=== PATIENT | female | born 1940 | race Caucasian/White ===

== ENCOUNTER → 2016-11-04 | Outpatient (CLI) | payer MEDICARE, OTHER ==
[2016-11-04 18:20] LABS: BASO % 0.7 % (0.0-1.0); EOS # 0.1 K/mm3 (0.0-0.50); EOS % 1.7 % (0.0-3.0); LARGE UNSTAINED CELL # 0.1 K/mm3 (0.0-0.4); LARGE UNSTAINED CELL % 1.8 % (0.0-4.0); LYMPH # 1.6 K/mm3 (1.5-4.5); LYMPH % 23.5 % (24.0-44.0); MEAN CORPUSCULAR HEMOGLOBIN 29.7 pg (27.0-33.0); MEAN CORPUSCULAR HGB CONC 32.4 g/dl (32.0-36.5); MEAN CORPUSCULAR VOLUME 91.6 fl (80.0-96.0); MONO # 0.3 K/mm3 (0.0-0.8); NEUTROPHILS # 4.6 K/mm3 (1.8-7.7); NEUTROPHILS % 67.4 % (36.0-66.0); PLATELET COUNT, AUTOMATED 319 k/mm3 (150-450); RED CELL DISTRIBUTION WIDTH 13.2 % (11.5-14.5); WHITE BLOOD COUNT 6.8 K/mm3 (4.0-10.0)
[2016-11-04 18:58] LABS: ALBUMIN/GLOBULIN RATIO 1.14 (1.00-1.93); ALKALINE PHOSPHATASE 87 U/L (45-117); ALT/SGPT 19 U/L (12-78); ANION GAP 12 MEQ/L (8-16); AST/SGOT 13 U/L (15-37); BILIRUBIN,TOTAL 0.4 MG/DL (0.2-1.0); BLOOD UREA NITROGEN 14 MG/DL (7-18); CALCIUM LEVEL 9.3 MG/DL (8.8-10.2); CARBON DIOXIDE LEVEL 27 MEQ/L (21-32); CHLORIDE LEVEL 103 MEQ/L (98-107); CHOLESTEROL LEVEL 238 MG/DL (<200); CREATININE FOR GFR 0.74 MG/DL (0.55-1.02); GLOMERULAR FILTRATION RATE > 60.0 (>39); GLUCOSE, FASTING 96 MG/DL (83-110); POTASSIUM SERUM 4.5 MEQ/L (3.5-5.1); SODIUM LEVEL 142 MEQ/L (136-145); TOTAL PROTEIN 7.5 GM/DL (6.4-8.2); TRIGLYCERIDES LEVEL 159 MG/DL (<150)
== END ==
LOC: M WUC 10:37
PROVIDERS: ATTEND Family Medicine
DX: I10 Essential (primary) hypertension (principal)

== ENCOUNTER → 2017-10-10 | Outpatient (CLI) | payer MEDICARE ==
[2017-10-10 11:59] LABS: HEMATOCRIT 38.2 % (36.0-47.0); HEMOGLOBIN 12.5 g/dl (12.0-16.0); MEAN CORPUSCULAR HEMOGLOBIN 29.6 pg (27.0-33.0); MEAN CORPUSCULAR HGB CONC 32.7 g/dl (32.0-36.5); MEAN CORPUSCULAR VOLUME 90.3 fl (80.0-96.0); PLATELET COUNT, AUTOMATED 287 10^3/uL (150-450); RED BLOOD COUNT 4.23 10^6/uL (4.00-5.40); RED CELL DISTRIBUTION WIDTH 14.2 % (11.5-14.5); WHITE BLOOD COUNT 7.1 10^3/uL (4.0-10.0)
[2017-10-10 12:20] LABS: ESTIMATED AVERAGE GLUCOSE 131 MG/DL (60-110); HEMOGLOBIN A1c 6.2 %
[2017-10-10 12:34] LABS: ALBUMIN 4.4 GM/DL (3.2-5.2); ALBUMIN/GLOBULIN RATIO 1.42 (1.00-1.93); ALKALINE PHOSPHATASE 92 U/L (45-117); ALT/SGPT 23 U/L (12-78); ANION GAP 9 MEQ/L (8-16); AST/SGOT 19 U/L (7-37); BILIRUBIN,TOTAL 0.4 MG/DL (0.2-1.0); BLOOD UREA NITROGEN 14 MG/DL (7-18); CALCIUM LEVEL 8.8 MG/DL (8.8-10.2); CARBON DIOXIDE LEVEL 27 MEQ/L (21-32); CHLORIDE LEVEL 107 MEQ/L (98-107); CHOLESTEROL LEVEL 238 MG/DL (<200); CHOLESTEROL RISK RATIO 4.857 (<5); CREATININE FOR GFR 0.76 MG/DL (0.55-1.30); GLOMERULAR FILTRATION RATE > 60.0 (>39); GLUCOSE, FASTING 96 MG/DL (70-100); HDL CHOLESTEROL 49 MG/DL (>40); LDL CHOLESTEROL 154.2 MG/DL (<100); NON-HDL-C 189 MG/DL; SODIUM LEVEL 143 MEQ/L (136-145); TOTAL PROTEIN 7.5 GM/DL (6.4-8.2); TRIGLYCERIDES LEVEL 174 MG/DL (<150)
[2017-10-10 12:38] LABS: TOTAL 25(OH) VITAMIN D 15.8 NG/ML (30.0-100.0)
== END ==
LOC: M LAB 10:57
DX: Z12.31 Encounter for screening mammogram for malignant neoplasm of breast (principal); E03.9 Hypothyroidism, unspecified; R53.83 Other fatigue; Z78.0 Asymptomatic menopausal state; Z85.3 Personal history of malignant neoplasm of breast; Z92.0 Personal history of contraception
CPT/HCPCS: 71046

== ENCOUNTER → 2017-10-10 | Outpatient (CLI) | payer MEDICARE | LOC: M RAD 13:27 | DX: Z12.31 Encounter for screening mammogram for malignant neoplasm of breast (principal); Z78.0 Asymptomatic menopausal state; Z85.3 Personal history of malignant neoplasm of breast; Z92.0 Personal history of contraception ==

== ENCOUNTER → 2018-07-12 | Outpatient (REF) | payer MEDICARE | LOC: M LAB REF 17:30 | DX: R30.0 Dysuria (principal) | CPT/HCPCS: 87186 ==

== ENCOUNTER → 2019-01-02 | Outpatient (CLI) | payer MEDICARE ==
[2019-01-02 09:34] LABS: HEMATOCRIT 38.9 % (36.0-47.0); HEMOGLOBIN 12.4 g/dl (12.0-15.5); MEAN CORPUSCULAR HEMOGLOBIN 29.4 pg (27.0-33.0); MEAN CORPUSCULAR HGB CONC 31.9 g/dl (32.0-36.5); MEAN CORPUSCULAR VOLUME 92.2 fl (80.0-96.0); PLATELET COUNT, AUTOMATED 278 10^3/uL (150-450); RED BLOOD COUNT 4.22 10^6/uL (4.00-5.40); WHITE BLOOD COUNT 6.5 10^3/uL (4.0-10.0)
[2019-01-02 10:01] LABS: ALBUMIN 4.2 GM/DL (3.2-5.2); ALT/SGPT 22 U/L (12-78); BILIRUBIN,TOTAL 0.5 MG/DL (0.2-1.0); BLOOD UREA NITROGEN 19 MG/DL (7-18); CALCIUM LEVEL 9.2 MG/DL (8.8-10.2); CARBON DIOXIDE LEVEL 29 MEQ/L (21-32); CHLORIDE LEVEL 107 MEQ/L (98-107); CHOLESTEROL LEVEL 204 MG/DL (<200); CREATININE FOR GFR 0.82 MG/DL (0.55-1.30); FREE T4 0.86 NG/DL (0.76-1.46); GLOMERULAR FILTRATION RATE > 60.0 (>39); GLUCOSE, FASTING 102 MG/DL (70-100); HDL CHOLESTEROL 48 MG/DL (>40); LDL CHOLESTEROL 130 MG/DL (<100); NON-HDL-C 156 MG/DL; POTASSIUM SERUM 4.3 MEQ/L (3.5-5.1); SODIUM LEVEL 141 MEQ/L (136-145); THYROID STIMULATING HORMONE 0.949 uIU/ML (0.358-3.740); TOTAL PROTEIN 7.4 GM/DL (6.4-8.2); TRIGLYCERIDES LEVEL 132 MG/DL (<150)
[2019-01-02 10:08] LABS: TOTAL 25(OH) VITAMIN D 94.8 NG/ML (30.0-100.0)
[2019-01-02 10:09] LABS: TOTAL T3 67.6 NG/DL (60.0-181.0)
[2019-01-02 10:47] LABS: HEMOGLOBIN A1c 6.2 %
== END ==
LOC: M LAB 08:53
PROVIDERS: ATTEND Family Medicine
DX: E03.9 Hypothyroidism, unspecified (principal); E11.9 Type 2 diabetes mellitus without complications

== ENCOUNTER → 2019-10-14 | Outpatient (CLI) | payer MEDICARE ==
[2019-10-14 09:43] LABS: HEMATOCRIT 37.7 % (36.0-47.0); MEAN CORPUSCULAR HEMOGLOBIN 29.3 pg (27.0-33.0); MEAN CORPUSCULAR HGB CONC 31.8 g/dl (32.0-36.5); MEAN CORPUSCULAR VOLUME 92.2 fl (80.0-96.0); PLATELET COUNT, AUTOMATED 274 10^3/uL (150-450); RED BLOOD COUNT 4.09 10^6/uL (4.00-5.40); WHITE BLOOD COUNT 6.7 10^3/uL (4.0-10.0)
[2019-10-14 10:03] LABS: HEMOGLOBIN A1c 5.9 %
[2019-10-14 10:13] LABS: ALBUMIN 4.2 GM/DL (3.2-5.2); ALT/SGPT 17 U/L (12-78); BILIRUBIN,TOTAL 0.4 MG/DL (0.2-1.0); BLOOD UREA NITROGEN 17 MG/DL (7-18); CALCIUM LEVEL 8.8 MG/DL (8.8-10.2); CARBON DIOXIDE LEVEL 30 MEQ/L (21-32); CHLORIDE LEVEL 107 MEQ/L (98-107); CHOLESTEROL LEVEL 230 MG/DL (<200); CHOLESTEROL RISK RATIO 5.111 (<5); CREATININE FOR GFR 0.77 MG/DL (0.55-1.30); GLOMERULAR FILTRATION RATE > 60.0 (>39); GLUCOSE, FASTING 103 MG/DL (70-100); HDL CHOLESTEROL 45 MG/DL (>40); LDL CHOLESTEROL 146 MG/DL (<100); NON-HDL-C 185 MG/DL; POTASSIUM SERUM 3.8 MEQ/L (3.5-5.1); SODIUM LEVEL 141 MEQ/L (136-145); TOTAL 25(OH) VITAMIN D 77.9 NG/ML (30.0-100.0); TOTAL PROTEIN 7.1 GM/DL (6.4-8.2); TRIGLYCERIDES LEVEL 193 MG/DL (<150)
== END ==
LOC: M LAB 09:05
PROVIDERS: ATTEND Family Medicine
DX: R53.83 Other fatigue (principal); E03.9 Hypothyroidism, unspecified

== ENCOUNTER → 2020-06-22 | Outpatient (CLI) | payer MEDICARE ==
[~2020-06-22] MED LIST: HYDR12.55 PO; LISI10TA4 PO; SERT-138; SERT50TA29; SIMV20TA22
[2020-06-22 14:46] LABS: HEMATOCRIT 34.3 % (36.0-47.0); HEMOGLOBIN 10.7 g/dl (12.0-15.5); MEAN CORPUSCULAR HGB CONC 31.2 g/dl (32.0-36.5); PLATELET COUNT, AUTOMATED 299 10^3/uL (150-450); RED BLOOD COUNT 3.69 10^6/uL (4.00-5.40); WHITE BLOOD COUNT 10.5 10^3/uL (4.0-10.0)
[2020-06-22 15:14] LABS: ALT/SGPT 28 U/L (12-78); BILIRUBIN,TOTAL 0.5 MG/DL (0.2-1.0); BLOOD UREA NITROGEN 17 MG/DL (7-18); CALCIUM LEVEL 9.4 MG/DL (8.8-10.2); CARBON DIOXIDE LEVEL 29 MEQ/L (21-32); CHLORIDE LEVEL 106 MEQ/L (98-107); CHOLESTEROL LEVEL 157 MG/DL (<200); CREATININE FOR GFR 0.84 MG/DL (0.55-1.30); GLOMERULAR FILTRATION RATE > 60.0 (>32); GLUCOSE, FASTING 107 MG/DL (70-100); HDL CHOLESTEROL 50 MG/DL (>40); LDL CHOLESTEROL 83 MG/DL (<100); NON-HDL-C 107 MG/DL; SODIUM LEVEL 142 MEQ/L (136-145); TRIGLYCERIDES LEVEL 120 MG/DL (<150)
[2020-06-22 15:15] LABS: HEMOGLOBIN A1c 5.9 %
--- NOTE | 2020-06-23 04:52 | REP ---
INDICATION: HTN, HYPOTHYROID COMPARISON: 10/10/2017 TECHNIQUE: PA and lateral. FINDINGS: Examination demonstrates small to moderate pleural effusions with perihilar and basilar airspace disease. Clinical correlation is required. Differential diagnosis includes both pulmonary edema and multifocal pneumonia. IMPRESSION: Small to moderate pleural effusions and perihilar/lower lobe opacities. Differential diagnosis includes but is not limited to pulmonary edema and multifocal pneumonia. <Electronically signed by Javid Matthews > 06/23/20 0449
--- NOTE | 2020-06-24 09:09 | ECGEPIP ---
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 Electronically Signed on 06-24-2020 9:08:41 EDT by Rick Ramirez
== END ==
LOC: M LAB 13:50
PROVIDERS: ATTEND Family Medicine
DX: I10 Essential (primary) hypertension (principal); Z79.899 Other long term (current) drug therapy

== ENCOUNTER 2020-06-25 14:35 | Emergency (ER) | payer MEDICARE ==
[~2020-06-25] VITALS: Ht 160 cm; Wt 72.7 kg
[2020-06-25] MEDS ORDERED: ALBUTEROL 90 MCG/ACT 8GM HFA INHALER INH ONE (15:15)
[2020-06-25 15:33] LABS: VENOUS BASE EXCESS 3.2 (-2.0-2.0); VENOUS HCO3 28.3 MEQ/L (23.0-27.0); VENOUS PARTIAL PRESSURE CO2 45.5 mmHg (38.0-50.0); VENOUS PARTIAL PRESSURE O2 43.7 mmHg (30.0-50.0); VENOUS PH 7.412 UNITS (7.330-7.430); VENOUS STANDARD HCO3 26.9 MEQ/L; VENOUS TOTAL CO2 29.7 MEQ/L (24.0-28.0)
[2020-06-25 15:37] LABS: BASO # 0.1 10^3/uL (0.0-0.2); BASO % 0.8 % (0.0-1.0); EOS # 0.1 10^3/uL (0.0-0.5); EOS % 0.9 % (0.0-3.0); HEMATOCRIT 35.2 % (36.0-47.0); HEMOGLOBIN 11.2 g/dl (12.0-15.5); LYMPH # 2.3 10^3/uL (1.5-5.0); MEAN CORPUSCULAR HEMOGLOBIN 29.9 pg (27.0-33.0); MEAN CORPUSCULAR HGB CONC 31.8 g/dl (32.0-36.5); MEAN CORPUSCULAR VOLUME 93.9 fl (80.0-96.0); MONO # 0.6 10^3/uL (0.0-0.8); MONO % 6.1 % (0.0-5.0); NEUTROPHILS # 5.9 10^3/uL (1.5-8.5); PLATELET COUNT, AUTOMATED 311 10^3/uL (150-450); RED BLOOD COUNT 3.75 10^6/uL (4.00-5.40)
[2020-06-25] MEDS ORDERED: SERT-138 (15:44)
[2020-06-25] MEDS ORDERED: SERT50TA29 (15:44)
[2020-06-25] MEDS ORDERED: SIMV20TA22 (15:44)
[2020-06-25 16:05] LABS: ALBUMIN 3.6 GM/DL (3.2-5.2); ALT/SGPT 36 U/L (12-78); BILIRUBIN,DIRECT < 0.1 MG/DL (0.0-0.2); BILIRUBIN,TOTAL 0.5 MG/DL (0.2-1.0); BLOOD UREA NITROGEN 13 MG/DL (7-18); CALCIUM LEVEL 8.5 MG/DL (8.8-10.2); CARBON DIOXIDE LEVEL 30 MEQ/L (21-32); CHLORIDE LEVEL 106 MEQ/L (98-107); CK-MB VALUE MASS 3.1 NG/ML (<3.6); CPK CREATINE PHOSPHOKINASE 123 U/L (26-192); CREATININE FOR GFR 0.75 MG/DL (0.55-1.30); GLOMERULAR FILTRATION RATE > 60.0 (>32); GLUCOSE, FASTING 131 MG/DL (70-100); MB/CK RELATIVE INDEX 2.52 (< OR =4); NT-PRO BNP 5788 PG/ML (<450); POTASSIUM SERUM 3.6 MEQ/L (3.5-5.1); SODIUM LEVEL 142 MEQ/L (136-145); TOTAL PROTEIN 6.9 GM/DL (6.4-8.2); TROPONIN I 0.02 NG/ML (< 0.10)
[2020-06-25] MEDS ORDERED: FUROSEMIDE 20MG/2ML VIAL (J1940) IV ONE (16:30)
--- NOTE | 2020-06-25 17:01 | REP ---
INDICATION: DYSPNEA/COUGH. COMPARISON: Comparison chest x-ray June 22, 2020.. TECHNIQUE: Upright AP portable view. FINDINGS: Monitoring electrodes are seen. There are surgical clips in the right axillary soft tissues. Mild cardiomegaly is observed. There is blunting of the pleural angles bilaterally indicating small bilateral pleural effusions. Pulmonary vascular and interstitial congestion is seen. Mild interstitial edema suspected. No acute infiltrate. Platelike atelectasis versus linear fibrosis is seen in the left and right base. IMPRESSION: CHF pattern with small bilateral effusions and vascular congestion with mild interstitial edema pattern. Platelike atelectasis in the bases. <Electronically signed by Nelson Ansari > 06/25/20 [id number]
[2020-06-25] MEDS ORDERED: HYDR12.55 PO (17:09)
[2020-06-25 17:37] VITALS: BP 165/85
[2020-06-25] MEDS ORDERED: COMBIVENT RESPIMAT 100-20MCG INHALER 4GM INH SCH (21:00)
--- NOTE | 2020-06-25 22:07 | ECGEPIP ---
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
== END 2020-06-25 17:39 | disposition home or self-care (01) ==
LOC: M ED 14:35
DX: I50.9 Heart failure, unspecified (principal); R06.02 Shortness of breath; E78.5 Hyperlipidemia, unspecified; Z79.899 Other long term (current) drug therapy
CPT/HCPCS: 71045; 80048; 80076; 82550; 82553; 82803; 83605; 83880; 84484; 85025; 87040; 87486; 87581; 87633; 87798; 93005; 93041; 96374; 99285; J1940

== ENCOUNTER 2020-06-29 14:09 | Emergency (ER) | payer MEDICARE ==
[~2020-06-29] VITALS: Ht 160 cm; Wt 72.0 kg
[2020-06-29 14:09] VITALS: BP 154/73
[~2020-06-29 14:09] MED LIST changes: -LISI10TA4 PO
[2020-06-29] MEDS ORDERED: LISI10TA4 PO (14:22)
== END 2020-06-29 14:57 | disposition home or self-care (01) ==
LOC: M ED 14:09
DX: S09.90XA Unspecified injury of head, initial encounter (principal); X58.XXXA Exposure to other specified factors, initial encounter; Y92.018 Other place in single-family (private) house as the place of occurrence of the external cause; I10 Essential (primary) hypertension; E78.5 Hyperlipidemia, unspecified; F33.9 Major depressive disorder, recurrent, unspecified; Z79.899 Other long term (current) drug therapy

== ENCOUNTER → 2020-08-12 | Outpatient (CLI) | payer MEDICARE ==
[~2020-08-12] MED LIST changes: +LISI10TA4 PO
[2020-08-12 13:02] LABS: HEMATOCRIT 39.2 % (36.0-47.0); HEMOGLOBIN 12.7 g/dl (12.0-15.5); MEAN CORPUSCULAR HEMOGLOBIN 29.1 pg (27.0-33.0); MEAN CORPUSCULAR HGB CONC 32.4 g/dl (32.0-36.5); MEAN CORPUSCULAR VOLUME 89.9 fl (80.0-96.0); PLATELET COUNT, AUTOMATED 256 10^3/uL (150-450); RED BLOOD COUNT 4.36 10^6/uL (4.00-5.40); WHITE BLOOD COUNT 6.7 10^3/uL (4.0-10.0)
[2020-08-12 13:41] LABS: HEMOGLOBIN A1c 6.4 %
[2020-08-12 16:52] LABS: ALBUMIN 4.1 GM/DL (3.2-5.2); BILIRUBIN,TOTAL 0.6 MG/DL (0.2-1.0); CHOLESTEROL RISK RATIO 5.727 (<5); CREATININE FOR GFR 2.16 MG/DL (0.55-1.30); GLOMERULAR FILTRATION RATE 23.4 (>32); POTASSIUM SERUM 6.2 MEQ/L (3.5-5.1); THYROID STIMULATING HORMONE 1.37 uIU/ML (0.358-3.740); TOTAL PROTEIN 7.8 GM/DL (6.4-8.2)
== END ==
LOC: M LAB 11:31
PROVIDERS: ATTEND Family Medicine
DX: E03.9 Hypothyroidism, unspecified (principal); D64.9 Anemia, unspecified; Z79.899 Other long term (current) drug therapy

== ENCOUNTER 2020-08-22 21:11 | Inpatient (IN) | payer MEDICARE ==
[~2020-08-22] VITALS: Ht 154.9 cm; Wt 68.1 kg
[2020-08-22] MEDS ORDERED: NS 1,000 ML IV ONE (22:00)
[2020-08-22 22:47] LABS: BASO # 0.1 10^3/uL (0.0-0.2); BASO % 0.7 % (0.0-1.0); EOS # 0.4 10^3/uL (0.0-0.5); EOS % 3.7 % (0.0-3.0); HEMATOCRIT 37.2 % (36.0-47.0); HEMOGLOBIN 11.5 g/dl (12.0-15.5); LYMPH # 2.3 10^3/uL (1.5-5.0); LYMPH % 23.6 % (24.0-44.0); MEAN CORPUSCULAR HEMOGLOBIN 28.1 pg (27.0-33.0); MEAN CORPUSCULAR HGB CONC 30.9 g/dl (32.0-36.5); MONO # 0.8 10^3/uL (0.0-0.8); MONO % 8.6 % (0.0-5.0); NEUTROPHILS # 6.1 10^3/uL (1.5-8.5); NEUTROPHILS % 63.1 % (36.0-66.0); PLATELET COUNT, AUTOMATED 289 10^3/uL (150-450); RED BLOOD COUNT 4.09 10^6/uL (4.00-5.40); WHITE BLOOD COUNT 9.7 10^3/uL (4.0-10.0)
[2020-08-22 23:17] LABS: ALBUMIN 3.9 GM/DL (3.2-5.2); ALT/SGPT 12 U/L (12-78); BILIRUBIN,DIRECT 0.1 MG/DL (0.0-0.2); BILIRUBIN,TOTAL 0.7 MG/DL (0.2-1.0); BLOOD UREA NITROGEN 86 MG/DL (7-18); CARBON DIOXIDE LEVEL 21 MEQ/L (21-32); CHLORIDE LEVEL 103 MEQ/L (98-107); CK-MB VALUE MASS 1.3 NG/ML (<3.6); CPK CREATINE PHOSPHOKINASE 48 U/L (26-192); CREATININE FOR GFR 2.66 MG/DL (0.55-1.30); GLOMERULAR FILTRATION RATE 18.4 (>32); GLUCOSE, FASTING 105 MG/DL (70-100); LIPASE 410 U/L (73-393); MB/CK RELATIVE INDEX 2.71 (< OR =4); POTASSIUM SERUM 4.5 MEQ/L (3.5-5.1); SODIUM LEVEL 135 MEQ/L (136-145); TOTAL PROTEIN 7.5 GM/DL (6.4-8.2); TROPONIN I < 0.02 NG/ML (< 0.10)
[2020-08-22 23:22] LABS: RSV AMPLIFICATION NEGATIVE (NEGATIVE)
[2020-08-23] MEDS ORDERED: SERT-138 PO (01:09)
[2020-08-23] MEDS ORDERED: LISI10TA4 PO (01:09)
[2020-08-23] MEDS ORDERED: FURO40TA2 PO (01:09)
[2020-08-23] MEDS ORDERED: ALEV220T22 PO (01:09)
[2020-08-23] MEDS ORDERED: SIMV20TA22 PO (01:09)
[2020-08-23] MEDS ORDERED: OMEP1CAP73 PO (01:09)
[2020-08-23] MEDS ORDERED: VITA50005 PO (01:09)
[2020-08-23] MEDS ORDERED: MOM 30ML SUSPENSION UDC PO PRN (01:45)
[2020-08-23] MEDS ORDERED: ACETAMINOPHEN TAB 650MG DOSE (2X325MG) PO PRN (01:45)
[2020-08-23] MEDS ORDERED: MAALOX 30 ML SUSP *UDC PO PRN (01:45)
[2020-08-23] MEDS ORDERED: NS 1,000 ML IV SCH (01:45)
--- NOTE | 2020-08-23 03:24 | HPEPDOC ---
General Date of Admission Aug 23, 2020 at 00:25 Date of Service: Aug 23, 2020 Attending Physician: ARNULFO NEWBY MD Chief Complaint The patient is a 79-year-old female admitted with a reason for visit of [place], Dehydration, Hypotension. Source: Patient Exam Limitations: Hard of hearing History of Present Illness Presenting compliant: History of present illness: Mrs. Anderson is an 79-year-old female Patient was recently diagnosed with CHF and was started on Lasix back in May as per patient presented to the emergency department as she was feeling difficult to breathe, her balance was off and feeling tired. She reports going to shopping today morning on the back home driving she was having difficulty to breathe, and later was having wobbling gait per patient, she felt okay when sitting and laying. She is also having back pain, dull in character, in the thoracic region, and took some naproxen in the afternoon. She denies having any chest pain, headache, nausea, vomiting, sweating, mechanical fall. She reports she was told she has CHF and was started on Lasix, she did report having dizziness on 08/12/2020 and went to her PCP Dr. Em who did order the blood work, which showed increasing creatinine from 0.8 to 2.1, and potassium was elevated and she was asked to stop taking the oral potassium and asked to follow-up in the office on 08/15/2020. But when patient went PCP office was closed due to covid-19. Since then she was having progressive weakness and dizziness with standing. Past medical history: Anxiety/depression CHF Past surgical history: Hysterectomy Lumpectomy for breast cancer status post chemotherapy and radiation in 1995 Social history: Denies smoking, denies alcohol use, denies illicit drug use/recreational. Family History: Mother has depression, from heart condition. Father has diabetes. Son from glioblastoma in 2017 at age 53 years. Brother has history of depression REVIEW OF SYSTEMS: Constitutional: Denies having fever, chills, night sweats, headaches, reports having 25 pound weight loss since May. Eyes: Denies any blurry vision or double vision.. Cardiovascular: Denies any chest pain or palpitations. Respiratory: Denies shortness of breath and cough. Gastrointestinal (GI): Denies any nausea or vomiting. Genitourinary: Denies dysuria, hematuria. Musculoskeletal: Denies any muscle aches and pains. Skin: Denies any rashes or ulcers. Hematology/Oncology: Denies any easy bleeding or bruising. Endocrine: Denies cold intolerance, heat intolerance. All other review of systems is negative. PHYSICAL EXAMINATION: Vital Signs: As below General: Patient is awake, alert, oriented times three, laying in bed , no apparent distress. Eyes: Conjunctiva clear, pupils equal round and reactive to light and accommodation. EOM full, Fundus: not visualized. ENT: Patient has difficulty in hearing, uses hearing aid but don't have it with her. No nasal deviation, oropharynx clear with no lesions/erythema. Neck: supple, no masses, trachea midline, no thyroid nodules, masses, tenderness or enlargement. Cardiovascular: S1, S2, normal rhythm, no murmur, rub, or gallop. Respiratory: Chest is clear to auscultation bilaterally, No rhonchi, wheezes or rubs. Abdomen: Soft, bowel sounds positive, no bruits. Nontender on palpation. Extremities: No clubbing or cyanosis. No edema, no tenderness. 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 Skin: No rashes, noted seborrheic dermatitis, stick-on lesions on her back and chest. Assessment: 79 years old female with a recent history of CHF per patient, (no echo on record ) came in ER with dizziness and weakness going on since 10 days. She had blood work done by PCP and was told to stop potassium, and asked to come back on 15 August for reevaluation. Patient did go to PCP office but was closed due to Covid. Today she reports having difficulty in breathing and dizziness on standing , feeling tired. In the ED her blood pressure was in 90's systolic, BUN and creatinine in ED were 86 and 2.66. Hospitalist team was called for further management of this patient. Plan: Acute kidney injury: - BUN 86, creatinine 2.66 her creatinine done at PCP was 2.1 which has gone up from 0.8 - Most likely patient has prerenal azotemia given her dehydration, NSAID and GOVIND inhibitors. - Patient was hypotensive on presentation and was given 1 L of fluid in the ED. - Will get renal ultrasound to rule out any chronic kidney injury. - We will get urine analysis, urine sodium, urine urea to calculate FENA. - Will hold off for furosemide, this no peripheral and simvastatin for now. - Will start her on 100 mils per hour normal saline. - Based on her urine analysis will consider further testing if there is intrin sic renal disease. Congestive heart failure: - Patient was told she has CHF and was started on Lasix, no echo on file as of now. We will opt in prior records to get more information of what type of heart failure she is having. - Has an appointment scheduled with cardiology on 09/02/2020(per patient) Anemia: - Patient has an hemoglobin of 11.5. - Patient never had a colonoscopy. But she wants to have one now, she is scheduled to see Dr. Amanda on 08/29/2020(per patient) - She does not report having dark stools or blood in stools. Anxiety/depression: - Will continue sertraline. DVT prophylaxis: - Teds and sequentials. Disposition: Will monitor her BUN and creatinine, and we will hold off nephrotoxic medication, try to obtain prior reports to see what type of CHF. Further decision will be made based on her kidney function. Home Medications Scheduled Ergocalciferol (Vitamin D2) (Vitamin D2) 50,000 Units Cap, 50,000 UNITS PO QWEEK, (Reported) SATURDAY Furosemide (Furosemide) 40 Mg Tablet, 40 MG PO BID, (Reported) Lisinopril (Lisinopril) 10 Mg Tablet, 10 MG PO DAILY, (Reported) Omeprazole (Omeprazole) 20 Mg Capsule.dr, 20 MG PO DAILY, (Reported) Sertraline HCl (Sertraline HCl) 100 Mg Tablet, 100 MG PO DAILY, (Reported) Simvastatin (Simvastatin) 20 Mg Tablet, 20 MG PO DAILY, (Reported) Scheduled PRN Naproxen Sodium (Aleve) 220 Mg Tablet, 220 MG PO BID PRN for PAIN, (Reported) Allergies Coded Allergies: No Known Allergies (Unverified , 02/28/16) A-FIB/CHADSVASC A-FIB History Current/History of A-Fib/PAF?: No Vital Signs Vital Signs Date Time Temp Pulse Resp B/P (MAP) Pulse Ox O2 Delivery O2 Flow Rate FiO2 08/22/20 23:46 67 20 107/51 (69) 100 Room Air 08/22/20 21:34 97.2 Laboratory Data Labs 24H Laboratory Tests 2 08/22/20 22:38: Immature Granulocyte % (Auto) 0.3, Neutrophils (%) (Auto) 63.1, Lymphocytes (%) (Auto) 23.6L, Monocytes (%) (Auto) 8.6H, Eosinophils (%) (Auto) 3.7H, Basophils (%) (Auto) 0.7, Neutrophils # (Auto) 6.1, Lymphocytes # (Auto) 2.3, Monocytes # (Auto) 0.8, Eosinophils # (Auto) 0.4, Basophils # (Auto) 0.1, Nucleated Red Blood Cells % (auto) 0.0, Anion Gap 11, Glomerular Filtration Rate 18.4L, Lactic Acid Level 1.0, Calcium Level 9.0, Total Bilirubin 0.7, Direct Bilirubin 0.1, A spartate Amino Transf (AST/SGOT) 9, Alanine Aminotransferase (ALT/SGPT) 12, Alkaline Phosphatase 53, Total Creatine Kinase 48, Creatine Kinase MB 1.3, Creatine Kinase MB Relative Index 2.71, Troponin I < 0.02, Total Protein 7.5, Albumin 3.9, Albumin/Globulin Ratio 1.1L, Lipase 410H, Coronavirus (COVID- 19)(PCR) NEGATIVE, Influenza Type A (RT-PCR) NEGATIVE, Influenza Type B (RT-PCR) NEGATIVE, Respiratory Syncytial Virus (PCR) NEGATIVE CBC/BMP Laboratory Tests 08/22/20 22:38 Plan / VTE VTE Prophylaxis Ordered?: Yes GME ATTESTATION GME ATTESTATION My faculty preceptor for this patient encounter was physically present during the encounter and was fully available. All aspects of the patient interview, examination, medical decision making process, and medical care plan development were reviewed and approved by the faculty preceptor. The faculty preceptor is aware and concurs with the plan as stated in the body of this note and will attest to such by his/her cosignature. ATTENDING NOTE TIME 205AM is a 79 yr old with a hx of unspecified CHF & depression who presented w c/o dizziness, and was found to have JORDAN and hypotension #JORDAN #Dehydration/ Hypotension #Unspecified type of CHF Plan: check orthostats/ f/u CK, U[place]tes for FEUrea, renal US, IVF, f/u records from PCP to determine type of CHF Rest per Dr. Watt's H&P Ayla Watt MD Aug 23, 2020 02:39 ARNULFO NEWBY MD Aug 23, 2020 03:24
--- NOTE | 2020-08-23 07:12 | ECGEPIP ---
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
[2020-08-23 08:00] VITALS: BP_SYST 137; BP_SYST 139; BP_SYST 156; BP_DIAS 63; BP_DIAS 67
[2020-08-23 08:06] LABS: BASO # 0.1 10^3/uL (0.0-0.2); BASO % 0.9 % (0.0-1.0); EOS # 0.5 10^3/uL (0.0-0.5); EOS % 6.1 % (0.0-3.0); HEMATOCRIT 35.7 % (36.0-47.0); LYMPH % 25.5 % (24.0-44.0); MEAN CORPUSCULAR HEMOGLOBIN 28.1 pg (27.0-33.0); MEAN CORPUSCULAR HGB CONC 30.8 g/dl (32.0-36.5); MEAN CORPUSCULAR VOLUME 91.1 fl (80.0-96.0); MONO # 0.7 10^3/uL (0.0-0.8); MONO % 8.7 % (0.0-5.0); NEUTROPHILS # 4.5 10^3/uL (1.5-8.5); NEUTROPHILS % 58.5 % (36.0-66.0); PLATELET COUNT, AUTOMATED 255 10^3/uL (150-450); RED BLOOD COUNT 3.92 10^6/uL (4.00-5.40); WHITE BLOOD COUNT 7.7 10^3/uL (4.0-10.0)
--- NOTE | 2020-08-23 08:10 | REP ---
INDICATION: CRISTIANA COMPARISON: None TECHNIQUE: Real time salcedo scale ultrasound examination using curved array transducer. FINDINGS: Bilateral kidneys are normal in contour, size, echogenicity, and reniform shape. No hydronephrosis, nephrolithiasis, cystic or renal mass lesion. No perinephric fluid collection. Right kidney measures 10.1 x 4.9 x 3.9 cm. Left kidney measures 9.2 x 3.9 x 5.1 cm. Bladder is unremarkable. IMPRESSION: Normal renal ultrasound. No hydronephrosis. <Electronically signed by Javid Matthews > 08/23/20 [id number]
[2020-08-23 08:29] LABS: ALBUMIN 3.5 GM/DL (3.2-5.2); BILIRUBIN,TOTAL 0.5 MG/DL (0.2-1.0); CALCIUM LEVEL 8.7 MG/DL (8.8-10.2); CREATININE FOR GFR 2.22 MG/DL (0.55-1.30); GLOMERULAR FILTRATION RATE 22.6 (>32); POTASSIUM SERUM 4.7 MEQ/L (3.5-5.1); TOTAL PROTEIN 6.8 GM/DL (6.4-8.2)
[2020-08-23] MEDS: DOCUSATE SODIUM 100MG CAPSULE PO SCH ×2 (09:00→19:49)
[2020-08-23 09:55] LABS: APPEARANCE, URINE HAZY (CLEAR); BACTERIA, URINE AUTO 2+ (NEGATIVE); BILIRUBIN, URINE AUTO NEGATIVE (NEGATIVE); BLOOD, URINE BLOOD NEGATIVE (NEGATIVE); COLOR, URINE YELLOW (YELLOW); GLUCOSE, URINE (UA) AUTO NEGATIVE (NEGATIVE); KETONE, URINE AUTO NEGATIVE (NEGATIVE); LEUKOCYTE ESTERASE, URINE AUTO 3+ (NEGATIVE); NITRITE, URINE AUTO NEGATIVE (NEGATIVE); PROTEIN, URINE AUTO NEGATIVE (NEGATIVE); RBC, URINE AUTO 3 /HPF (0-3); SPECIFIC GRAVITY URINE AUTO 1.011 (1.002-1.035); SQUAMOUS EPITHELIAL CELL UR AU 2 /HPF (0-6); UROBILINOGEN, URINE AUTO 0.2 mg/dL (0.0-2.0); WBC, URINE AUTO 29 /HPF (0-3)
[2020-08-23] MEDS: SERTRALINE 100 MG TAB PO SCH (09:57)
[2020-08-23] MEDS: OMEPRAZOLE 20 MG CAP PO SCH (09:57)
[2020-08-23 10:15] LABS: SODIUM,RANDOM URINE 61 MEQ/L; UREA NITROGEN RANDOM URINE 594 MG/DL
--- NOTE | 2020-08-23 10:47 | REP ---
INDICATION: Evaluate for fluid overload COMPARISON: 06/25/2020 TECHNIQUE: Portable AP view of the chest FINDINGS: The mediastinum and cardiac silhouette are stable and within normal limits for portable technique. Lung navarro demonstrate diffuse chronic appearing interstitial changes. Subtle airspace disease along the periphery of the right lower lobe cannot be excluded. Previously noted lower lobe infiltrates and pleural effusions have resolved. No effusion. No pneumothorax. Skeletal structures stable. IMPRESSION: 1. Chronic appearing changes. No definite evidence for pulmonary edema/fluid overload. 2. Subtle chronic versus acute airspace disease along the periphery of the right lower lung zone. <Electronically signed by Javid Matthews > 08/23/20 1044
[2020-08-23 12:19] VITALS: BP 145/69
[2020-08-23] MEDS: NS 1,000 ML IV SCH (12:44)
[2020-08-23 14:23] VITALS: BP 121/68
--- NOTE | 2020-08-23 16:23 | IPNPDOC ---
Text Note Date of Service The patient was seen on 08/23/20. NOTE Subjective: Patient is an 79-year-old female with a PMHx of Anxiety/depression and a recent diagnosis of CHF who presented to the emergency room with complaints of lightheadedness and dizziness. Patient reported that she was started on Lasix back in May after she had reported difficulty breathing and was found to have fluid overload. She reported lightheadedness and dizziness and went to her primary care provider for further evaluation. On 08/22, however, the office was closed and patient came to the ER for further evaluation. Upon arrival to the ER, patient was found to have orthostatic hypotension and acute kidney injury. She was admitted to the hospital service for further evaluation and treatment. Patient was seen and examined at the bedside. Currently patient denies any chest pain, shortness breath, palpitations, nausea, vomiting, abdominal pain, diarrhea or constipation. Denies any urinary discomfort. Objective: Vitals (See below) General: Lying in bed, no acute distress, comfortable, AAOx3 HEENT: NC, AT CVS: +S1S2 Lungs: Fair air entry b/l, -w/r/r Abdomen: Soft, ND, NT Extremities: - Edema, - Calf tenderness Assessment and plan: Acute kidney injury - likely 2/2 overdiuresis - Cr baseline of 0.8; Cr on admission of 2.66 - improving - Renal US 08/23: Normal renal ultrasound. No hydronephrosis. - Awaiting UA / Urine electrolytes - c/w gentle IV fluid hydration Congestive heart failure - No evidence of exacerbation - No echocardiogram on file - CXR 08/23: 1. Chronic appearing changes. No definite evidence for pulmonary edema/fluid overload. 2. Subtle chronic versus acute airspace disease along the periphery of the right lower lung zone. - Will hold diuretic therapy - Has an appointment scheduled with cardiology on 09/02/[address] Daniel Anemia - Hg appears to be at baseline - She is scheduled to see Dr. Amanda on 08/29/2020(per patient) for screening colonoscopy Anxiety/depression - c/w sertraline DVT prophylaxis - c/w TEDs/Sequentials Disposition: - c/w gentle IV fluid hydration - Anticipate DC within 24-48 hours VS,Fishbone, I+O VS, Fishbone, I+O Laboratory Tests 08/22/20 22:38 08/23/20 07:47 Vital Signs Date Time Temp Pulse Resp B/P (MAP) Pulse Ox O2 Delivery O2 Flow Rate FiO2 08/23/20 14:23 98.1 71 19 121/68 (85) 98 Room Air HONORIO RUIZ MD Aug 23, 2020 16:23
[2020-08-23 17:14] LABS: CALCIUM LEVEL 8.5 MG/DL (8.8-10.2); CREATININE FOR GFR 1.67 MG/DL (0.55-1.30); GLOMERULAR FILTRATION RATE 31.4 (>32); POTASSIUM SERUM 4.5 MEQ/L (3.5-5.1)
[2020-08-23 22:00] VITALS: BP 123/57
[2020-08-24 02:00] VITALS: BP 103/69
[2020-08-24] MEDS: NS 1,000 ML IV SCH (02:12)
[2020-08-24 06:00] VITALS: BP 111/66
[2020-08-24 06:33] LABS: MEAN CORPUSCULAR HEMOGLOBIN 28.9 pg (27.0-33.0); MEAN CORPUSCULAR HGB CONC 31.4 g/dl (32.0-36.5); MEAN CORPUSCULAR VOLUME 92.1 fl (80.0-96.0); PLATELET COUNT, AUTOMATED 272 10^3/uL (150-450); WHITE BLOOD COUNT 8.1 10^3/uL (4.0-10.0)
[2020-08-24 07:10] LABS: CREATININE FOR GFR 1.21 MG/DL (0.55-1.30); GLOMERULAR FILTRATION RATE 45.6 (>32); POTASSIUM SERUM 4.9 MEQ/L (3.5-5.1)
[2020-08-24] MEDS: SERTRALINE 100 MG TAB PO SCH (08:00)
[2020-08-24] MEDS: OMEPRAZOLE 20 MG CAP PO SCH (08:00)
[2020-08-24] MEDS: DOCUSATE SODIUM 100MG CAPSULE PO SCH (08:01)
[2020-08-24] MEDS ORDERED: FLUBLOK(EGG FREE)(QUAD)INFLUENZA VACC 0.5ML SYRINGE 18YRS & OLDER IM ONE (09:00)
[2020-08-24] MEDS ORDERED: DOK1CAP7 PO (10:01)
--- NOTE | 2020-08-24 13:56 | DS.PDOC ---
Discharge Summary General Date of Admission Aug 23, 2020 at 00:25 Date of Discharge 08/24/2020 Discharge Summary PROCEDURES PERFORMED DURING STAY: [None]. ADMITTING DIAGNOSES / DISCHARGE DIAGNOSES: Acute kidney injury - likely 2/2 overdiuresis Congestive heart failure Anemia Anxiety/depression DVT prophylaxis COMPLICATIONS/CHIEF COMPLAINT: Dehydration HISTORY OF PRESENT ILLNESS: Patient is an 79-year-old female with a PMHx of Anxiety/depression and a recent diagnosis of CHF who presented to the emergency room with complaints of lightheadedness and dizziness. Patient reported that she was started on Lasix back in May after she had reported difficulty breathing and was found to have fluid overload. She reported lightheadedness and dizziness and went to her primary care provider for further evaluation. On 08/22, however, the office was closed and patient came to the ER for further evaluation. Upon arrival to the ER, patient was found to have orthostatic hypotension and acute kidney injury. She was admitted to the hospital service for further evaluation and treatment. HOSPITAL COURSE: Acute kidney injury - likely 2/2 overdiuresis - Cr baseline of 0.8; Cr on admission of 2.66 - Creatinine is approaching normal - Renal US 08/23: Normal renal ultrasound. No hydronephrosis. - Awaiting UA / Urine electrolytes - Will avoid nephrotoxic medications; no NSAIDS; will continue to hold Furosemide on discharge - Will DC IV fluid hydration - Will have outpatient follow-up with primary care provider, cardiology and nephrology within the next 7 days Congestive heart failure - No evidence of exacerbation - No echocardiogram on file - CXR 08/23: 1. Chronic appearing changes. No definite evidence for pulmonary edema/fluid overload. 2. Subtle chronic versus acute airspace disease along the periphery of the right lower lung zone. - Will hold diuretic therapy - Has an appointment scheduled with cardiology on 09/02/[address] Daniel Anemia - Hg appears to be at baseline - She is scheduled to see Dr. Amanda on 08/29/2020(per patient) for screening colonoscopy Anxiety/depression - c/w sertraline DVT prophylaxis - c/w TEDs/Sequentials DISCHARGE MEDICATIONS: Please see below. ALLERGIES: Please see below. PHYSICAL EXAMINATION ON DISCHARGE: Vitals (See below) General: Lying in bed, no acute distress, comfortable, AAOx3 HEENT: NC, AT CVS: +S1S2 Lungs: Fair air entry b/l, -w/r/r Abdomen: Soft, non-distended, non-tender Extremities: No evidence of edema, - Calf tenderness LABORATORY DATA: Please see below. ACTIVITY: [As tolerated]. DISCHARGE PLAN: Follow-up with primary care provider, cardiology and nephrology within the next 7 days Remain compliant with treatment plan and medications Return to the ER if you experience any problems DISPOSITION: Home, Self-Care. DISCHARGE CONDITION: [Stable]. TIME SPENT ON DISCHARGE: 35 minutes. Vital Signs/I&Os Vital Signs Date Time Temp Pulse Resp B/P (MAP) Pulse Ox O2 Delivery O2 Flow Rate FiO2 08/24/20 06:00 98.0 93 19 111/66 (81) 99 Room Air I&O- Last 24 Hours up to 6 AM 08/24/20 06:00 Intake Total 2790 ml Output Total 420 ml Balance 2370 ml Laboratory Data Labs 24H Laboratory Tests 2 08/23/20 16:44: Anion Gap 9, Glomerular Filtration Rate 31.4L, Calcium Level 8.5L 08/24/20 05:25: Anion Gap 7L, Glomerular Filtration Rate 45.6, Calcium Level 9.0, Nucleated Red Blood Cells % (auto) 0.0, Magnesium Level 2.0 CBC/BMP Laboratory Tests 08/23/20 16:44 08/24/20 05:25 Discharge Medications Scheduled Docusate Sodium (Dok) 100 Mg Capsule, 100 MG PO BID Ergocalciferol (Vitamin D2) (Vitamin D2) 50,000 Units Cap, 50,000 UNITS PO QWEEK, (Reported) SATURDAY Lisinopril (Lisinopril) 10 Mg Tablet, 10 MG PO DAILY, (Reported) Omeprazole (Omeprazole) 20 Mg Capsule.dr, 20 MG PO DAILY, (Reported) Sertraline HCl (Sertraline HCl) 100 Mg Tablet, 100 MG PO DAILY, (Reported) Simvastatin (Simvastatin) 20 Mg Tablet, 20 MG PO DAILY, (Reported) Allergies Coded Allergies: No Known Allergies (Unverified , 02/28/16) HONORIO RUIZ MD Aug 24, 2020 13:56
[2020-08-29] MEDS ORDERED: VITAMIN D 50,000 UNITS CAPSULE (ERGOCALCIFEROL 1.25MG) PO SCH (09:00)
== END 2020-08-24 13:25 | disposition home or self-care (01) | DRG 684 ==
LOC: M ED 21:11 → M ED INP 08-23 00:25 → ENRESERV 08-23 13:09 → M MSPAV 08-23 14:23
PROVIDERS: ADMIT Internal Medicine; ATTEND Internal Medicine
DX: N17.9 Acute kidney failure, unspecified (principal); I50.9 Heart failure, unspecified; D64.9 Anemia, unspecified; F41.9 Anxiety disorder, unspecified; F32.9 Major depressive disorder, single episode, unspecified; Z79.899 Other long term (current) drug therapy; Z85.3 Personal history of malignant neoplasm of breast

== ENCOUNTER → 2020-09-17 | Outpatient (CLI) | payer MEDICARE ==
[~2020-09-17] MED LIST changes: +ALEV220T22 PO; +DOK1CAP7 PO; +FURO40TA2 PO; +LISI10TA22 PO; -LISI10TA4 PO; +OMEP1CAP73 PO; +SERT-138 PO; +SIMV20TA22 PO; +SLOW160T12 PO; +VITA50005 PO
== END ==
LOC: M LABSMTC 10:54
PROVIDERS: ATTEND Anesthesiology
DX: Z01.812 Encounter for preprocedural laboratory examination (principal); Z20.822 Contact with and (suspected) exposure to COVID-19

== ENCOUNTER 2020-09-22 09:56 | Day surgery (SDC) | payer MEDICARE ==
[~2020-09-22] VITALS: Ht 152.4 cm; Wt 69.4 kg
[~2020-09-22 09:56] MED LIST changes: +LIDOCAINE 2% 100MG/5ML SDV (FOR ANES.) As Ordered ONE; -LISI10TA22 PO; +LISI10TA4 PO; +NS 1,000 ML IV ONE; +fentaNYL 100 MCG/2 ML INJECTION (J3010) As Ordered ONE; +propofoL 200 MG/20 ML VIAL As Ordered ONE
--- OUTSIDE RECORDS SUMMARY | 2020-09-22 10:02 | CCD | Continuity of Care Document ---
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 AUTM [phone] Problems Active Problems Provider Date Essential hypertension Cornelio Amanda JR, MD Onset: 09/07/19 21 Social History Type Date Description Comments Sex Unknown ETOH Use Denies alcohol use Tobacco Use Start: Unknown Denies Smoking Recreational Drug Use Denies Drug Use Allergies, Adverse Reactions, Alerts Description No Known Drug Allergies Medications Active Medications SIG Qnty Indications Ordering Provide r Date Omeprazole 20mg Capsules DR Take 1 Capsule By Mouth Daily Unknown Lisinopril 10mg Tablets Take 1 Tablet By Mouth Once Daily Unknown Simvastatin 20mg Tablets Take 1 Tablet By Mouth Once Daily Unknown Sertraline HCL 100mg Tablets Take 1 Tablet By Mouth Once Daily Unknown Vitamin D3 Ultra Potency 1.25mg (95052 Ut) Tablets tab by mouth every week 8tabs Unknown Slo-Ez 1 qd Unknown Immunizations Description No Information Available Vital Signs Date Vital Result Comment 09/07/2020 11:02am BP Systolic 162 mmHg BP Diastolic 75 mmHg Height 60 inches 5'0" Weight 152.12 lb BMI (Body Mass Index) 29.7 kg/m2 [place] Body Weight 100 lb Weight 69.004 kg BSA (Body Surface Area) 1.66 m2 Results Description No Information Available Procedures Description No Information Available Medical Devices Description No Information Available Encounters Description No Information Available Assessments Description No Information Available Plan of Treatment No Information Available Functional Status Description No Information Available Mental Status Description No Information Available Referrals Refer to Reason for Referral Status Appt Date Cornelio Amanda M.D. RECTAL BLEEDING, COLONOSCOPY Created 08/29/2020 [facility] General Surgery [address] [facility] [address] [address] [place] [address] [phone]
--- OUTSIDE RECORDS SUMMARY | 2020-09-22 10:02 | CCD ---
Author Author [facility] Organization [facility] Address Unknown Phone Unavailable Care Team Providers Care Property Manager Name Role Phone LUIZALIN PA Unavailable Unavailable LUIZ, ALIN PA Unavailable Unavailable LUIZ, ALIN PA Unavailable Unavailable LUIZ, ALIN PA Unavailable Unavailable LUIZ, ALIN PA Unavailable Unavailable LUIZ, ALIN PA Unavailable Unavailable LUIZ, ALIN PA Unavailable Unavailable LUIZ, ALIN PA Unavailable Unavailable LUIZ, ALIN PA Unavailable Unavailable LUIZ, ALIN PA Unavailable Unavailable LUIZ, ALIN PA Unavailable Unavailable LUIZ, ALIN PA Unavailable Unavailable LUIZ, ALIN PA Unavailable Unavailable LUIZ, ALIN PA Unavailable Unavailable LUIZ, ALIN PA Unavailable Unavailable LUIZ, ALIN PA Unavailable Unavailable LUIZ, ALIN PA Unavailable Unavailable LUIZ, ALIN PA Unavailable Unavailable LUIZ, ALIN PA Unavailable Unavailable LUIZ, ALIN PA Unavailable Unavailable LUIZ, ALIN PA Unavailable Unavailable LUIZ, ALIN PA Unavailable Unavailable LUIZ, ALIN PA Unavailable Unavailable LUIZ, ALIN PA Unavailable Unavailable LUIZ, ALIN PA Unavailable Unavailable LUIZ, ALIN PA Unavailable Unavailable LUIZ, ALIN PA Unavailable Unavailable LUIZ, ALIN PA Unavailable Unavailable LUIZ, ALIN PA Unavailable Unavailable LUIZ, ALIN PA Unavailable Unavailable LUIZ, ALIN PA Unavailable Unavailable LUIZ, ALIN PA Unavailable Unavailable LUIZ, ALIN PA Unavailable Unavailable LUIZ, ALIN PA Unavailable Unavailable LUIZ, AILN PA Unavailable Unavailable LUIZ, ALIN PA Unavailable Unavailable LUIZALIN Unavailable Unavailable LUIZALIN Unavailable Unavailable Re-disclosure Warning The records that you are about to access may contain information from federally-assisted alcohol or drug abuse programs. If such information is present, then the following federally mandated warning applies: This information has been disclosed to you from records protected by federal confidentiality rules (42 CFR part 2). The federal rules prohibit you from making any further disclosure of this information unless further disclosure is expressly permitted by the written consent of the person to whom it pertains or as otherwise permitted by 42 CFR part 2. A general authorization for the release of medical or other information is NOT sufficient for this purpose. The Federal rules restrict any use of the information to criminally investigate or prosecute any alcohol or drug abuse patient.The records that you are about to access may contain highly sensitive health information, the redisclosure of which is protected by Article 27-F of the [facility] Public Health law. If you continue you may have access to information: Regarding HIV / AIDS; Provided by facilities licensed or operated by the [facility] Office of Mental Health; or Provided by the [facility] Office for People With Developmental Disabilities. If such information is present, then the following [facility] mandated warning applies: This information has been disclosed to you from confidential records which are protected by state law. State law prohibits you from making any further disclosure of this information without the specific written consent of the person to whom it pertains, or as otherwise permitted by law. Any unauthorized further disclosure in violation of state law may result in a fine or care home sentence or both. A general authorization for the release of medical or other information is NOT sufficient authorization for further disc losure. Family History Family Member Name Family Member Gender Family Member Status Date o f Status Description Data Source(s) Unknown Unknown Problem [facility]) Encounters Encounter Providers Location Date Indications Data Source(s ) Outpatient Attender: ALIN gayle 06/05/2020 09:30:00 AM EDT [facility] ([facility]) Medications Medication Brand Name Start Date Product Form Dose Route Admi nistrative Instructions Pharmacy Instructions Status Indications Reaction Description Data Source(s) Doxycycline Monohydrate 100 MG Oral Capsule Doxycycline [place] hydrate 06/05/2020 12:00:00 AM EDT ORAL active M EDENT ([facility], [facility]) Insurance Providers Payer name Policy type / Coverage type Policy ID Covered green party ID Covered green party's relationship to singh Policy Singh Plan Information WELLCARE [id number] SP [id number] WELLCARE [id number] SP [id number] WELLCARE O [id number] S [id number] [facility]) O [id number] S [id number] [facility] MCRO [id number] SP [id number] [employer] OPTIONS [id number] SP [id number] MEDICARE [id number] SP [id number] A [facility] Options Medigap Part B [id number] Self [id number] Medicare Natl Gov't Servi Medicare Primary [id number] Self [id number] [facility] MCRO [id number] SP [id number] [facility] MCRO [id number] SP [id number] MEDICARE COMPLETE [id number] SP [id number] [facility] [id number] SP [id number] [employer] Options Medigap Part B Self Medicare Natl Gov't Servi Medicare Primary Self [employer] OPTIONS [id number] SP [id number] MEDICARE [id number] SP [id number] Problems, Conditions, and Diagnoses Code Display Name Description Problem Type Effective Dates Data Source(s) 56809214 Essential hypertension Essential hypertension Problem 09/07/2020 12:00:00 AM EST [facility] ([facility], ) Results ID Date Data Source [id number] 09/17/2020 11:30:00 AM EST [facility] Name Value Range Interpretation Code Description Data Leah rce(s) Supporting Document(s) SARS coronavirus 2 RNA Not Detected [facility] [place] This lab was ordered by [facility] and reported by [facility]. ID Date Data Source [id number] 08/22/2020 10:38:00 PM EST [facility] Name Value Range Interpretation Code Description Data Leah rce(s) Supporting Document(s) SARS coronavirus 2 RNA [Presence] in Res piratory specimen by [place] with probe detection [facility] This lab was ordered by [facility] a nd reported by [facility]. ID Date Data Source [id number] 06/29/2020 12:00:00 AM EST [facility] Imaging David Em MD Patient Name: JAMMIE KEATING [facility] Date of : 1940[place] [address] Date of Exam: 06/29/2020PH#: Fax: [phone] EXAM: CHEST (2 VIEW) X-RAYCLINICAL INFORMATION: History of CHF.Two views. These images were obtained using digital radiography.The latest prior for comparison 06/25/2020. The latest prior two viewexamination 06/22/2020.There are bibasilar patchy opacities and bilateral CP angle blunting theappearance of which may have minimally improved compared to the priorexams. There is cardiomegaly, status quo. Once again, there is pulmonaryvascular redistribution and a diffuse haziness throughout the pulmonaryvascularity. There is no significant change in the osseous structures.IMPRESSION:CHF with bilateral pleural effusions as described above. Certainly,concomitant basilar pneumonia cannot be ruled out by this exam.FAHAD Moore/Panchito you for referring JAMMIE KEATING to our office.Electronically Signed - SIVA CARABALLO DO 06/30/20 13:52 Name Value Range Interpretation Code Description Data Leah rce(s) Supporting Document(s) Procedure Social History Code Duration Value Status Description Data Source(s ) Smoking 06/05/2020 12:00:00 AM EDT Patient has never smoked co mpleted Patient has never smoked [facility] ([facility], [facility]) Vital Signs ID Date Data Source UNK Name Value Range Interpretation Code Description Data Source(s) Body surface area Derived from formula 1.66 m2 1.66 m2 [facility] ([facility]) Body weight 69.004 kg 69.004 kg [facility] ([facility]) [place] body weight 100 [lb_av] 100 [lb_av] [facility] T ([facility]) Body mass index (BMI) [Ratio] 29.7 kg/m2 29.7 k g/m2 [facility] ([facility]) Body weight 152.12 [lb_av] 152.12 [lb_av] [facility] T ([facility]) Body height 60 [in_i] 60 [in_i] [facility] ([facility]) 5'0" Diastolic blood pressure 75 mm[Hg] 75 mm[Hg] [facility] ([facility]) Systolic blood pressure 162 mm[Hg] 162 mm[Hg] M [facility] ([facility]) Diastolic blood pressure 88 mm[Hg] 88 mm[Hg] [facility] ([facility], [facility]) Systolic blood pressure 142 mm[Hg] 142 mm[Hg] M [facility] ([facility]) Body mass index (BMI) [Ratio] 28.3 kg/m2 28.3 k g/m2 [facility] ([facility]) Body height 63 [in_i] 63 [in_i] [facility] ([facility]) 5'3" Body weight 160.00 [lb_av] 160.00 [lb_av] MEDEN T ([facility], [facility]) Body temperature 98.5 [degF] 98.5 [degF] [facility] ([facility], [facility]) Oxygen saturation in Arterial blood by Pulse oximetry 95 % 95 % [facility] ([facility], [facility]) Respiratory rate 20 /min 20 /min [facility] ( [facility], [facility]) Heart rate 78 /min 78 /min [facility] ([facility], [facility])
--- NOTE | 2020-09-22 11:54 | ROOR ---
Patient Name: Monica Lemus Procedure Date: 09/22/2020 11:40 AM Date of : 1940 Age: 79 Room: [facility] Gender: Female Note Status: Finalized Procedure: Upper GI endoscopy Indications: Iron deficiency anemia Providers: Cornelio Amanda Jr, MD Referring MD: ANTONY BINGHAM MD Requesting Provider: Medicines: Propofol per Anesthesia Complications: No immediate complications. Procedure: Pre-Anesthesia Assessment: - Prior to the procedure, a History and Physical was performed, and patient medications and allergies were reviewed. The patient is competent. The risks and benefits of the procedure and the sedation options and risks were discussed with the patient. All questions were answered and informed consent was obtained. Patient identification and proposed procedure were verified by the physician and the nurse in the pre-procedure area and in the procedure room. Mental Status Examination: alert and oriented. Airway Examination: normal oropharyngeal airway and neck mobility. Respiratory Examination: clear to auscultation. CV Examination: normal. ASA Grade Assessment: II - A patient with mild systemic disease. After reviewing the risks and benefits, the patient was deemed in satisfactory condition to undergo the procedure. The anesthesia plan was to use moderate sedation / analgesia (conscious sedation). Immediately prior to administration of medications, the patient was re-assessed for adequacy to receive sedatives. The heart rate, respiratory rate, oxygen saturations, blood pressure, adequacy of pulmonary ventilation, and response to care were monitored throughout the procedure. The physical status of the patient was re-assessed after the procedure. The Endoscope was introduced through the mouth, and advanced to the second part of duodenum. The upper GI endoscopy was accomplished without difficulty. The patient tolerated the procedure well. Findings: The upper third of the esophagus, middle third of the esophagus and lower third of the esophagus were normal. The cardia, gastric fundus, gastric body, gastric antrum, prepyloric region of the stomach and pylorus were normal. The duodenal bulb, first portion of the duodenum and second portion of the duodenum were normal. A medium-sized hiatal hernia was present. Impression: - Normal upper third of esophagus, middle third of esophagus and lower third of esophagus. - Normal cardia, gastric fundus, gastric body, antrum, prepyloric region of the stomach and pylorus. - Normal duodenal bulb, first portion of the duodenum and second portion of the duodenum. - Medium-sized hiatal hernia. - No specimens collected. Recommendation: - Discharge patient to home (ambulatory). - Return to my office as previously scheduled. Procedure Code(s): --- Professional --- 22394, Esophagogastroduodenoscopy, flexible, transoral; diagnostic, including collection of specimen(s) by brushing or washing, when performed (separate procedure) Diagnosis Code(s): --- Professional --- K44.9, Diaphragmatic hernia without obstruction or gangrene D50.9, Iron deficiency anemia, unspecified CPT copyright 2019 [employer]. All rights reserved. The codes documented in this report are preliminary and upon solutions developer review may be revised to meet current compliance requirements. Cornelio Amanda MD Cornelio Amanda Jr, MD 09/22/2020 11:54:16 AM Electronically signed by Cornelio Amanda Jr, MD Number of Addenda: 0 Note Initiated On: 09/22/2020 11:40 AM Estimated Blood Loss: Estimated blood loss: none.
--- NOTE | 2020-09-22 12:24 | ROOR ---
Patient Name: Monica Lemus Procedure Date: 09/22/2020 11:41 AM Date of : 1940 Age: 79 Room: [facility] Gender: Female Note Status: Finalized Procedure: Colonoscopy Indications: Iron deficiency anemia Providers: Cornelio Amanda Jr, MD Referring MD: ANTONY BINGHAM MD Requesting Provider: Medicines: Propofol per Anesthesia Complications: No immediate complications. Procedure: Pre-Anesthesia Assessment: - Prior to the procedure, a History and Physical was performed, and patient medications and allergies were reviewed. The patient is competent. The risks and benefits of the procedure and the sedation options and risks were discussed with the patient. All questions were answered and informed consent was obtained. Patient identification and proposed procedure were verified by the physician and the nurse in the pre-procedure area and in the procedure room. Mental Status Examination: alert and oriented. Airway Examination: normal oropharyngeal airway and neck mobility. Respiratory Examination: clear to auscultation. CV Examination: normal. ASA Grade Assessment: II - A patient with mild systemic disease. After reviewing the risks and benefits, the patient was deemed in satisfactory condition to undergo the procedure. The anesthesia plan was to use moderate sedation / analgesia (conscious sedation). Immediately prior to administration of medications, the patient was re-assessed for adequacy to receive sedatives. The heart rate, respiratory rate, oxygen saturations, blood pressure, adequacy of pulmonary ventilation, and response to care were monitored throughout the procedure. The physical status of the patient was re-assessed after the procedure. The Colonoscope was introduced through the anus and advanced to the cecum, identified by appendiceal orifice and ileocecal valve. The colonoscopy was performed without difficulty. The patient tolerated the procedure well. The quality of the bowel preparation was adequate. Findings: The ascending colon, cecum, appendiceal orifice and ileocecal valve appeared normal. A small polyp was found in the recto-sigmoid colon transverse colon. The polyp was removed with a hot snare. Resection was complete, but the polyp tissue was only partially retrieved. A few semi-pedunculated polyps were found in the sigmoid colon. The polyps were medium in size. These polyps were removed with a hot snare. Resection was complete, but the polyp tissue was only partially retrieved. Multiple small and large-mouthed diverticula were found in the sigmoid colon. Impression: - The ascending colon, cecum, appendiceal orifice and ileocecal valve are normal. - One small polyp at the recto-sigmoid colon in the transverse colon, removed with a hot snare. Complete resection. Partial retrieval. - A few medium polyps in the sigmoid colon, removed with a hot snare. Complete resection. Partial retrieval. - Diverticulosis in the sigmoid colon. Recommendation: - Discharge patient to home (ambulatory). - Repeat colonoscopy in 3 - 5 years for surveillance based on pathology results. Procedure Code(s): --- Professional --- 90604, Colonoscopy, flexible; with removal of tumor(s), polyp(s), or other lesion(s) by snare technique Diagnosis Code(s): --- Professional --- K63.5, Polyp of colon D50.9, Iron deficiency anemia, unspecified K57.30, Diverticulosis of large intestine without perforation or abscess without bleeding CPT copyright 2019 [employer]. All rights reserved. The codes documented in this report are preliminary and upon side boss review may be revised to meet current compliance requirements. Cornelio Amanda MD Cornelio Amanda Jr, MD 09/22/2020 12:23:52 PM Electronically signed by Cornelio Amanda Jr, MD Number of Addenda: 0 Note Initiated On: 09/22/2020 11:41 AM Estimated Blood Loss: Estimated blood loss: none.
[2020-09-22 13:31] VITALS: BP 165/81
== END 2020-09-22 13:20 | disposition home or self-care (01) ==
LOC: M OPP 09:56
PROVIDERS: ATTEND Surgery
DX: D50.9 Iron deficiency anemia, unspecified (principal); K62.5 Hemorrhage of anus and rectum; K63.5 Polyp of colon; K57.30 Diverticulosis of large intestine without perforation or abscess without bleeding; K44.9 Diaphragmatic hernia without obstruction or gangrene; I10 Essential (primary) hypertension; R12 Heartburn; M19.90 Unspecified osteoarthritis, unspecified site; F32.9 Major depressive disorder, single episode, unspecified; F41.9 Anxiety disorder, unspecified; E78.5 Hyperlipidemia, unspecified; Z92.21 Personal history of antineoplastic chemotherapy; Z92.3 Personal history of irradiation; Z85.3 Personal history of malignant neoplasm of breast; Z79.899 Other long term (current) drug therapy
CPT/HCPCS: 43235; 45385; 88305; J3010

== ENCOUNTER 2020-11-18 19:01 | Inpatient (IN) | payer MEDICARE ==
[~2020-11-18] VITALS: Ht 157.5 cm; Wt 69.5 kg
[~2020-11-18 19:01] MED LIST changes: -LIDOCAINE 2% 100MG/5ML SDV (FOR ANES.) As Ordered ONE; +LISI10TA22 PO; -LISI10TA4 PO; -NS 1,000 ML IV ONE; -fentaNYL 100 MCG/2 ML INJECTION (J3010) As Ordered ONE; -propofoL 200 MG/20 ML VIAL As Ordered ONE
[2020-11-18] MEDS ORDERED: FURO40TA2 PO (19:20)
[2020-11-18 20:45] LABS: BASO # 0.1 10^3/uL (0.0-0.2); BASO % 0.6 % (0.0-1.0); EOS # 0.1 10^3/uL (0.0-0.5); EOS % 1.2 % (0.0-3.0); HEMATOCRIT 33.5 % (36.0-47.0); HEMOGLOBIN 10.5 g/dl (12.0-15.5); LYMPH # 2.3 10^3/uL (1.5-5.0); LYMPH % 24.1 % (24.0-44.0); MEAN CORPUSCULAR HEMOGLOBIN 30.6 pg (27.0-33.0); MEAN CORPUSCULAR HGB CONC 31.3 g/dl (32.0-36.5); MEAN CORPUSCULAR VOLUME 97.7 fl (80.0-96.0); MONO # 0.6 10^3/uL (0.0-0.8); MONO % 5.8 % (2.0-8.0); NEUTROPHILS # 6.4 10^3/uL (1.5-8.5); PLATELET COUNT, AUTOMATED 304 10^3/uL (150-450); RED BLOOD COUNT 3.43 10^6/uL (4.00-5.40); WHITE BLOOD COUNT 9.5 10^3/uL (4.0-10.0)
[2020-11-18 21:02] LABS: ALBUMIN 3.7 GM/DL (3.2-5.2); ALT/SGPT 23 U/L (12-78); BILIRUBIN,DIRECT 0.1 MG/DL (0.0-0.2); BILIRUBIN,TOTAL 0.4 MG/DL (0.2-1.0); BLOOD UREA NITROGEN 12 MG/DL (7-18); CALCIUM LEVEL 8.8 MG/DL (8.8-10.2); CARBON DIOXIDE LEVEL 29 MEQ/L (21-32); CHLORIDE LEVEL 108 MEQ/L (98-107); CK-MB VALUE MASS 1.7 NG/ML (<3.6); CPK CREATINE PHOSPHOKINASE 64 U/L (26-192); CREATININE FOR GFR 0.91 MG/DL (0.55-1.30); GLOMERULAR FILTRATION RATE > 60.0 (>32); GLUCOSE, FASTING 106 MG/DL (70-100); MB/CK RELATIVE INDEX 2.66 (< OR =4); NT-PRO BNP 8540 PG/ML (<450); POTASSIUM SERUM 3.2 MEQ/L (3.5-5.1); SODIUM LEVEL 143 MEQ/L (136-145); TOTAL PROTEIN 6.9 GM/DL (6.4-8.2); TROPONIN I < 0.02 NG/ML (< 0.10)
--- NOTE | 2020-11-18 21:22 | REPVR ---
PROCEDURE INFORMATION: Exam: XR Chest Exam date and time: 11/18/2020 8:27 PM Age: 80 years old Clinical indication: Shortness of breath; Additional info: Dyspnea/cough TECHNIQUE: Imaging protocol: XR of the chest Views: 1 view. COMPARISON: CR PORTABLE CHEST X-RAY 08/23/2020 10:37 AM FINDINGS: Lungs: There is increased pulmonary vascularity and pulmonary edema. There are right greater than left basilar airspace opacities. Pleural spaces: There is blunting of both costophrenic sulci, which may indicate small bilateral pleural effusions. No pneumothorax is noted. Heart/Mediastinum: Unremarkable. No cardiomegaly. Vasculature: There are atherosclerotic calcifications of the aorta. Bones/joints: There are endplate spurs in the thoracic spine. Soft tissues: There are surgical clips in the right axillary a region. IMPRESSION: Pulmonary edema and small bilateral pleural effusions with associated right and left basilar atelectasis and/or consolidation. Electronically signed by: Jermaine Tillman On 11/18/2020 21:21:47 PM
[2020-11-18] MEDS ORDERED: FUROSEMIDE 40MG/4ML VIAL (J1940) IV ONE (21:25)
[2020-11-18] MEDS ORDERED: MOM 30ML SUSPENSION UDC PO PRN (21:35)
[2020-11-18] MEDS ORDERED: MAALOX 30 ML SUSP *UDC PO PRN (21:35)
[2020-11-18] MEDS ORDERED: ACETAMINOPHEN TAB 650MG DOSE (2X325MG) PO PRN (21:35)
[2020-11-18] MEDS ORDERED: POTASSIUM CHLORIDE 10 MEQ SR TABLET PO ONE (21:35)
[2020-11-18] MEDS ORDERED: ZOLO100T PO (21:40)
[2020-11-18] MEDS ORDERED: DOK100TA2 PO (21:54)
[2020-11-18 22:04] LABS: FERRITIN 136 NG/ML (8-252); IRON (FE) 35 UG/DL (50-170); MAGNESIUM LEVEL 1.7 MG/DL (1.8-2.4); PERCENT SATURATION 13.3 % (13.2-45.0); TOTAL IRON BINDING CAPACITY 264 UG/DL (250-450)
[2020-11-18 22:13] LABS: FOLATE 21.5 NG/ML; VITAMIN B12 LEVEL 817 PG/ML
[2020-11-18 22:20] LABS: RSV AMPLIFICATION NEGATIVE (NEGATIVE)
--- NOTE | 2020-11-18 22:47 | ECGEPIP ---
[facility] - ED Test Date: 2020-11-18 Pat Name: JAMMIE KEATING Department: Room: - Gender: Female Field Tax Auditor: WILLIAM LUNAB: 1940 Requested By: Stefano Maldonado Order Number: [id number] Reading MD: Rcik Riley Measurements Intervals [place] Rate: 76 P: 44 DE: 192 QRS: -61 QRSD: 160 T: 72 QT: 488 QTc: 549 Interpretive Statements Sinus rhythm with frequent premature ventricular complexes Left axis deviation Prolonged QTc interval Right bundle branch block Left ventricular hypertrophy with repolarization abnormality ( R in aVL ) Similar to tracing done 08-22-20 Electronically Signed on 11-18-2020 22:47:38 EDT by Rick Riley
[2020-11-18] MEDS: FUROSEMIDE 40MG/4ML VIAL (J1940) IV SCH (23:36)
[2020-11-19 00:48] LABS: TROPONIN I < 0.02 NG/ML (< 0.10)
[2020-11-19 01:18] VITALS: BP 150/88
--- NOTE | 2020-11-19 01:29 | HPEPDOC ---
[facility] Medical History & Physical Date of Admission Nov 18, 2020 Date of Service: Nov 18, 2020 Primary Care Physician: Lester Em Attending Physician: ARNULFO NEWBY MD History and Physical TIME OF SERVICE: 1020pm CHIEF COMPLAINT: dyspnea HISTORY OF PRESENT ILLNESS: Since last Saturday this 80 yr old F noticed that when she wakes up she is gasping for air. She has also been feeling short of breath especially when she walks and lies down, coughing and wheezing. She denies having chest pain or leg swelling. She attributes her symptoms to being under stress as her brother was recently killed after running a red light & as a result of interacting with her daughter who has bipolar disorder. Her PCP told her to monitor her weight and take Lasix if her weigh increases; despite doing this her symptom didnt improve. Today she also developed weakness therefore she came to the ER for evaluation and was started on Lasix for acute CHF; she has voided. REVIEW OF SYSTEMS: 12-point review of systems negative except as listed in HPI PAST MEDICAL/ SURGICAL HISTORY: Anxiety/depression Unspecified type of CHF Hysterectomy Lumpectomy for breast cancer status post chemotherapy and radiation in 1995 SOCIAL HISTORY: Denies smoking, denies alcohol use, denies illicit drug use/recreational. FAMILY HISTORY: Mother has depression, from heart condition. Father has diabetes. Son from glioblastoma in 2017 at age 53 years. Brother had history of depression Daughter bipolar disorder ALLERGIES: Please see below. HOME MEDICATIONS: Please see below. PHYSICAL EXAMINATION: Vital Signs Date Time Temp Pulse Resp B/P (MAP) Pulse Ox O2 Delivery O2 Flow Rate FiO2 11/18/20 19:02 98.2 83 18 160/85 (110) 95 Room Air 11/18/20 20:21 98 GENERAL APPEARANCE: well nourished and developed /NAD HEENT: EOMI CARDIOVASCULAR: RRR/NMRG / no LE edema LUNGS: not using accessory muscles to breath /inspiratory crackles prominent at lung bases ABDOMEN: obese MUSCULOSKELETAL: NCAT / RADU x 4 INTEGUMENT: not cyanotic / not pale NEUROLOGICAL: CN 2-12 grossly intact / speech not dysarthric PSYCHIATRIC: A&Ox 3 LABORATORY DATA: 11/18/20 20:19 IMAGING: Chest xray IMPRESSION: Pulmonary edema and small bilateral pleural effusions with associated right and left basilar atelectasis and/or consolidation. MICROBIOLOGY: respiratory panel neg ASSESSMENT: is a 79 yr old with a hx of unspecified CHF & depression who presented w c/o dyspnea, coughing and wheezing and will be admitted for acute unspecified type of CHF. PLAN: 1 Acute unspecified type of CHF She was last admitted for the same in Jul; we meant to obtain her Echo report but I am not able to find the reports in [facility] Plan: elevate head of bed to 50 degrees/ strict Is/OS, daily weights, fluid restriction to 2L or 67oz, salt restriction to 2G / f/u TSH, trend Troponin, f/u Echo (r/o systolic dysfunction and screen for Takatsubo) / IV lasix 2 Macrocytic anemia Plan: f/u stool occult, Iron panel, B12 and folate 3 Hypokalemia Plan: KCl / f/u Mag 4 Uncontrolled HTN Plan :c/w Lisinopril and add amolodipine 2.5mg daily 5 Depression Plan: Sertraline DVT px w lovenox Dispo: home after at least 2 midnights stay Home Medications Scheduled Docusate Sodium (Dok) 100 Mg Tablet, 100 MG PO BID Ergocalciferol (Vitamin D2) (Vitamin D2) 50,000 Units Cap, 50,000 UNITS PO QWEEK SATURDAY Ferrous Sulfate, Dried (Slow Release Iron) 160 Mg Tablet.er, 160 MG PO BID Lisinopril (Lisinopril) 10 Mg Tablet, 10 MG PO DAILY Omeprazole (Omeprazole) 20 Mg Capsule.dr, 20 MG PO DAILY Sertraline Hcl (Zoloft) 100 Mg Tablet, 100 MG PO DAILY Simvastatin (Simvastatin) 20 Mg Tablet, 20 MG PO DAILY Scheduled PRN Furosemide (Furosemide) 40 Mg Tablet, 40 MG PO DAILY PRN for EDEMA Allergies Coded Allergies: No Known Allergies (Unverified , 09/12/20) A-FIB/CHADSVASC A-FIB History Current/History of A-Fib/PAF?: No Current PO Anticoag Therapy: No ARNULFO NEWBY MD Nov 19, 2020 01:29
[2020-11-19] MEDS: FUROSEMIDE 40MG/4ML VIAL (J1940) IV SCH ×5 (04:02→20:50)
[2020-11-19 06:00] VITALS: BP 160/88
[2020-11-19 06:27] LABS: HEMATOCRIT 34.2 % (36.0-47.0); HEMOGLOBIN 11.1 g/dl (12.0-15.5); MEAN CORPUSCULAR HEMOGLOBIN 30.7 pg (27.0-33.0); MEAN CORPUSCULAR HGB CONC 32.5 g/dl (32.0-36.5); MEAN CORPUSCULAR VOLUME 94.7 fl (80.0-96.0); PLATELET COUNT, AUTOMATED 317 10^3/uL (150-450); RED BLOOD COUNT 3.61 10^6/uL (4.00-5.40); WHITE BLOOD COUNT 9.1 10^3/uL (4.0-10.0)
[2020-11-19 07:01] LABS: BLOOD UREA NITROGEN 16 MG/DL (7-18); CALCIUM LEVEL 9.5 MG/DL (8.8-10.2); CARBON DIOXIDE LEVEL 30 MEQ/L (21-32); CHLORIDE LEVEL 102 MEQ/L (98-107); GLOMERULAR FILTRATION RATE > 60.0 (>32); GLUCOSE, FASTING 105 MG/DL (70-100); MAGNESIUM LEVEL 1.5 MG/DL (1.8-2.4); POTASSIUM SERUM 3.2 MEQ/L (3.5-5.1); SODIUM LEVEL 140 MEQ/L (136-145); TROPONIN I < 0.02 NG/ML (< 0.10)
[2020-11-19] MEDS ORDERED: POTASSIUM CHLORIDE 10 MEQ SR TABLET PO ONE ×2 (08:00)
[2020-11-19] MEDS: SENOKOT S TAB PO SCH ×2 (08:13→20:49)
[2020-11-19] MEDS: SERTRALINE 100 MG TAB PO SCH (08:13)
[2020-11-19] MEDS: OMEPRAZOLE 20 MG CAP PO SCH (08:13)
[2020-11-19] MEDS: SIMVASTATIN 20 MG TAB PO SCH (08:13)
[2020-11-19] MEDS: MAG SULF 1GM/100ML (MAG RUN) 1 GM in IV 1 EA IV SCH ×2 (08:15→09:29)
[2020-11-19] MEDS: ENOXAPARIN 40MG/0.4ML SYRINGE (J1650 PER 10MG) SC SCH (08:15)
--- NOTE | 2020-11-19 10:38 | IPNPDOC ---
Subjective Date Seen The patient was seen on 11/19/20. Subjective Chief Complaint/HPI Mrs. Lemus is an 80 year old female with anxiety/depression and unspecified CHF who presents with dyspnea and found to be in decompensated heart failure. This morning, she denies chest pain and still has dyspnea on exertion. She was going through grief in recently looking a family member this month. Objective Physical Examination General Exam: Positive: Alert, Cooperative Eye Exam: Positive: EOMI; Negative: Sclera icteric ENT Exam: Positive: Atraumatic Chest Exam: Positive: Rhonchi Heart Exam: Positive: Rate Normal, Regular Rhythm Abdomen Exam: Positive: Normal bowel sounds, Soft; Negative: Tenderness Extremity Exam: Positive: Edema (bilateral pitting edema) Neuro Exam: Positive: Normal Speech Psych Exam: Positive: Mental status NL Assessment /Plan Assessment Mrs. Lemus is an 80 year old female with anxiety/depression and unspecified CHF who presents with dyspnea and found to be in decompensated heart failure. She recently lost a family member and is under a lot of stress. Echocardiogram was ordered, pending results. Looking for EF and possible Takatsubo's cardiomyopathy in the setting of emotional stress. Otherwise, will continue diuresis. Plan/VTE VTE Prophylaxis Ordered?: Yes Plan 1. Acute decompensated heart failure -No previous echo reports in our EMS -Continue with diuresis -Pending echocardiogram for EF and possible Takotsubo's cardiomyopathy in the setting of emotional distress -Troponin negative x3 2. Hypertension -Continue with lisinopril, amlodipine, and Lasix 3. Dyslipidemia -Continue Simvastatin 4. GERD -Continue Omeprazole 5. DVT ppx -Lovenox Disposition: Pending echocardiogram and clinical improvement VS, I&O, 24H, [facility] Vital Signs/I&O Vital Signs Date Time Temp Pulse Resp B/P (MAP) Pulse Ox O2 Delivery O2 Flow Rate FiO2 11/19/20 08:13 152/98 11/19/20 06:00 97.7 78 18 95 Room Air 11/18/20 20:21 98 I&O- Last 24 Hours up to 6 AM 11/19/20 06:00 Intake Total 300 ml Output Total 2700 ml Balance -2400 ml Laboratory Data 24H LABS Laboratory Tests 2 11/18/20 20:19: Immature Granulocyte % (Auto) 0.3, Neutrophils (%) (Auto) 68.0H, Lymphocytes (%) (Auto) 24.1, Monocytes (%) (Auto) 5.8, Eosinophils (%) (Auto) 1.2, Basophils (%) (Auto) 0.6, Neutrophils # (Auto) 6.4, Lymphocytes # (Auto) 2.3, Monocytes # (Auto) 0.6, Eosinophils # (Auto) 0.1, Basophils # (Auto) 0.1, Nucleated Red Blood Cells % (auto) 0.0, Anion Gap 6L, Glomerular Filtration Rate > 60.0, Calcium Level 8.8, Magnesium Level 1.7L, Iron Level 35L, Total Iron Binding Capacity 264, Transferrin % Saturation 13.3, Ferritin 136, Total Bilirubin 0.4, Direct Bilirubin 0.1, Aspartate Amino Transf (AST/SGOT) 15, Alanine Aminotransferase (ALT/SGPT) 23, Alkaline Phosphatase 75, Total Creatine Kinase 64, Creatine Kinase MB 1.7, Creatine Kinase MB Relative Index 2.66, Troponin I < 0.02, LW-Phn-R-Type Natriuretic Peptide 8540H, Total Protein 6.9, Albumin 3.7, Albumin/Globulin Ratio 1.2, Vitamin B12 Level 817, Folate 21.5 11/18/20 21:30: Coronavirus (COVID-19)(PCR) NEGATIVE, Influenza Type A (RT-PCR) NEGATIVE, Influenza Type B (RT-PCR) NEGATIVE, Respiratory Syncytial Virus (PCR) NEGATIVE 11/19/20 00:08: Troponin I < 0.02, Thyroid Stimulating Hormone (TSH) 1.890 11/19/20 06:03: Nucleated Red Blood Cells % (auto) 0.0, Anion Gap 8, Glomerular Filtration Rate > 60.0, Calcium Level 9.5, Magnesium Level 1.5L, Troponin I < 0.02 CBC/BMP Laboratory Tests 11/18/20 20:19 11/19/20 06:03 SERVANDO CASE 27, 2021 10:38
[2020-11-19 13:46] LABS: CALCIUM LEVEL 9.5 MG/DL (8.8-10.2); CREATININE FOR GFR 0.99 MG/DL (0.55-1.30); GLOMERULAR FILTRATION RATE 57.3 (>32); POTASSIUM SERUM 3.4 MEQ/L (3.5-5.1)
[2020-11-19 14:00] VITALS: BP 139/79
[2020-11-19 22:00] VITALS: BP 137/80
[2020-11-20] MEDS: FUROSEMIDE 40MG/4ML VIAL (J1940) IV SCH ×3 (01:12→08:43)
[2020-11-20 06:00] VITALS: BP 130/78
[2020-11-20 06:26] LABS: HEMATOCRIT 37.5 % (36.0-47.0); HEMOGLOBIN 12.1 g/dl (12.0-15.5); MEAN CORPUSCULAR HEMOGLOBIN 30.7 pg (27.0-33.0); MEAN CORPUSCULAR HGB CONC 32.3 g/dl (32.0-36.5); MEAN CORPUSCULAR VOLUME 95.2 fl (80.0-96.0); PLATELET COUNT, AUTOMATED 323 10^3/uL (150-450); RED BLOOD COUNT 3.94 10^6/uL (4.00-5.40); WHITE BLOOD COUNT 8.7 10^3/uL (4.0-10.0)
[2020-11-20 06:56] LABS: CALCIUM LEVEL 9.3 MG/DL (8.8-10.2); CREATININE FOR GFR 1.14 MG/DL (0.55-1.30); GLOMERULAR FILTRATION RATE 48.7 (>32); POTASSIUM SERUM 3.4 MEQ/L (3.5-5.1)
[2020-11-20] MEDS ORDERED: POTASSIUM CHLORIDE 10 MEQ SR TABLET PO ONE (08:00)
[2020-11-20 08:43] VITALS: BP 136/70
[2020-11-20] MEDS: SENOKOT S TAB PO SCH (08:43)
[2020-11-20] MEDS: OMEPRAZOLE 20 MG CAP PO SCH (08:43)
[2020-11-20] MEDS: SERTRALINE 100 MG TAB PO SCH (08:43)
[2020-11-20] MEDS: SIMVASTATIN 20 MG TAB PO SCH (08:43)
[2020-11-20] MEDS: ENOXAPARIN 40MG/0.4ML SYRINGE (J1650 PER 10MG) SC SCH (08:44)
[2020-11-20] MEDS ORDERED: AMLO25TA PO (10:45)
--- NOTE | 2020-11-20 22:45 | DS.PDOC ---
Discharge Summary General Date of Admission Nov 18, 2020 at 21:44 Date of Discharge Nov 20, 2020 Discharge Summary PROCEDURES PERFORMED DURING STAY: None. ADMITTING DIAGNOSES: 1. Acute decompensated heart failure with preserved ejection fraction (acute diastolic CHF) 2. Macrocytic anemia 3. Hypokalemia 4. Uncontrolled hypertension 5. Depression DISCHARGE DIAGNOSES: 1. Acute decompensated heart failure with preserved ejection fraction (acute diastolic CHF) 2. Macrocytic anemia 3. Hypokalemia 4. Uncontrolled hypertension 5. Depression COMPLICATIONS/CHIEF COMPLAINT: Dyspnea HISTORY OF PRESENT ILLNESS: Mrs. Lemus is an 80 year old female who presents with dyspnea. She started feeing dyspnea since last Saturday. Dyspnea is worse when exerts herself or when she lays down. She denies chest pain or leg swelling. Otherwise, she has been under a lot of emotional stress. Her brother recently passed way and her daughter is going through psychiatric issues. Work up was significant for BNP >8000 and CXR demonstrated pulmonary edema. Patient was admitted for congestive heart failure HOSPITAL COURSE: Patient tolerated diuresis and did well. Blood pressure was elevated and she was started on a small dose of amlodipine. I recommended that she record her blood pressure at home as she may not need it in a more comfortable setting. Otherwise, this morning she felt well. Her dyspnea resolved. She felt ready for home and was subsequently discharged home. DISCHARGE MEDICATIONS: Please see below. ALLERGIES: Please see below. PHYSICAL EXAMINATION ON DISCHARGE: VITAL SIGNS: Please see below. GENERAL: Comfortable, in no apparent distress HEENT: Head normocephalic, atraumatic NECK: Supple CARDIOVASCULAR EXAMINATION: Regular rate and rhythm RESPIRATORY EXAMINATION: Lungs clear to auscultation bilaterally ABDOMINAL EXAMINATION: Soft, non-tender, normal bowel sounds EXTREMITIES: Bilateral pitting edema SKIN: Warm and dry NEUROLOGICAL EXAMINATION: CN 3-12 grossly intact PSYCHIATRIC EXAMINATION: Normal mood and affect LABORATORY DATA: Please see below. IMAGING: Radiologist interpretation CXR Pulmonary edema and small bilateral pleural effusions with associated right and left basilar atelectasis and/or consolidation. PROGNOSIS: Good ACTIVITY: As tolerated. DIET: 2gm sodium diet DISCHARGE PLAN: Home DISPOSITION: , Self-Care. DISCHARGE INSTRUCTIONS: 1. Follow up with PCP within a week 2. Follow up with cardiology within a week ITEMS TO FOLLOWUP ON ON OUTPATIENT: 1. Blood pressure monitoring DISCHARGE CONDITION: Stable. Total time spent on discharge planning, discharge summary, and medication reconciliation: 40 minutes Vital Signs/I&Os Vital Signs Date Time Temp Pulse Resp B/P (MAP) Pulse Ox O2 Delivery O2 Flow Rate FiO2 11/20/20 08:43 136/70 11/20/20 06:00 98.1 81 18 98 Room Air 11/18/20 20:21 98 I&O- Last 24 Hours up to 6 AM 11/20/20 06:00 Intake Total 1730 ml Output Total 1550 ml Balance 180 ml Laboratory Data Labs 24H Laboratory Tests 2 11/20/20 06:05: Nucleated Red Blood Cells % (auto) 0.0, Anion Gap 6L, Glomerular Filtration Rate 48.7, Calcium Level 9.3, Magnesium Level 2.0 CBC/BMP Laboratory Tests 11/20/20 06:05 Discharge Medications Scheduled Amlodipine Besylate (Amlodipine Besylate) 2.5 Mg Tablet, 2.5 MG PO QHS Docusate Sodium (Dok) 100 Mg Tablet, 100 MG PO BID, (Reported) Ergocalciferol (Vitamin D2) (Vitamin D2) 50,000 Units Cap, 50,000 UNITS PO QWEEK, (Reported) SATURDAY Ferrous Sulfate, Dried (Slow Release Iron) 160 Mg Tablet.er, 160 MG PO BID, (Reported) Lisinopril (Lisinopril) 10 Mg Tablet, 10 MG PO DAILY, (Reported) Omeprazole (Omeprazole) 20 Mg Capsule.dr, 20 MG PO DAILY, (Reported) Sertraline Hcl (Zoloft) 100 Mg Tablet, 100 MG PO DAILY, (Reported) Simvastatin (Simvastatin) 20 Mg Tablet, 20 MG PO DAILY, (Reported) Scheduled PRN Furosemide (Furosemide) 40 Mg Tablet, 40 MG PO DAILY PRN for EDEMA, (Reported) Allergies Coded Allergies: No Known Allergies (Unverified , 09/12/20) SERVANDO CASE DO Nov 20, 2020 22:45
--- NOTE | 2020-11-21 14:24 | ECHO ---
DATE OF PROCEDURE: 11/19/2020 Age: 79 Gender: Female Height: 155 cm Weight: 70 kg REFERRING PHYSICIAN: Svetlana Mock MD INDICATION: Dyspnea. MEASUREMENTS: 2D Measurements: Aortic root 3.0 cm Left atrium 3.8 cm Left atrial volume index 47 cm Proximal ascending aorta 2.9 cm Intraventricular septum 1.30 cm Posterior wall 1.31 cm Left ventricle diastole 3.9 cm Aortic annulus 1.7 cm Inferior vena cava 2.0 cm Doppler Measurements: Trace aortic regurgitation No aortic stenosis Aortic valve velocity 136 cm/s LVOT velocity 60.1 cm/s Very mild mitral regurgitation Mitral E velocity 110 cm/s Mitral A velocity 104 cm/s Mitral deceleration time 190 msec Mild tricuspid regurgitation Estimated right ventricular systolic pressure 23-28 mmHg Estimated right atrial pressure 5-10 mmHg Very pulmonic regurgitation Pulmonary artery acceleration time 129 msec MITRAL ANNULAR TISSUE DOPPLER E prime septal 3.7 cm/s, E prime lateral 6.5 cm/s DESCRIPTION: Rhythm was sinus with frequent PVCs at times. Image quality was fair. No pericardial effusion. This was a 2D, M-mode, color flow Doppler, and pulsed wave Doppler examination including mitral annular tissue Doppler. CONCLUSIONS: 1. Mild concentric left ventricular hypertrophy. Normal regional LV wall motion and wall thickening. Normal LV systolic function. LVEF of 60% - 65% by visual estimate. Grade 2 LV diastolic dysfunction (pseudonormal LV filling pattern). 2. Severe left atrial dilatation by left atrial volume index. 3. Suggestive of normal estimated right ventricle systolic pressure and pulmonary artery systolic pressure. Normal right ventricle size and systolic function. Normal right atrial size. 4. Moderate aortic valve sclerosis of a 3-cuspid aortic valve. Trace aortic regurgitation. No aortic stenosis. 5. Moderate mitral annular calcification. Very mild mitral regurgitation. No mitral stenosis. 6. Otherwise normal appearing echocardiogram Doppler findings. MTDD
== END 2020-11-20 12:47 | disposition home or self-care (01) | DRG 293 ==
LOC: M ED 19:01 → M ED INP 21:44 → ENRESERV 22:00 → M MSPAV 11-19 01:18
PROVIDERS: ADMIT Internal Medicine; ATTEND Internal Medicine
DX: I11.0 Hypertensive heart disease with heart failure (principal); I50.9 Heart failure, unspecified; D53.9 Nutritional anemia, unspecified; E87.6 Hypokalemia; F32.9 Major depressive disorder, single episode, unspecified; Z85.3 Personal history of malignant neoplasm of breast; Z92.21 Personal history of antineoplastic chemotherapy; Z92.3 Personal history of irradiation; Z79.899 Other long term (current) drug therapy

== ENCOUNTER → 2020-11-25 | Outpatient (CLI) | payer MEDICARE ==
[~2020-11-25] MED LIST changes: +AMLO25TA PO; +DOK100TA2 PO; +ZOLO100T PO
--- NOTE | 2020-11-25 14:36 | REP ---
INDICATION: PAIN IN LEFT FOOT. COMPARISON: None. TECHNIQUE: Four views FINDINGS: Bones are demineralized. Sclerosis and some marginal osteophytes at the 1st MTP joint are noted consistent with some moderate arthritis. The other MTP joints without sclerosis or spur some of the IP joints show narrowing and there is a fusion of the DIP joint of the 5th toe as a common anatomic variant degenerative changes are seen at tarsal articulations. There is a plantar calcaneal spur evident and some scattered but diffuse soft tissue calcifications in the plantar aponeurosis. Subtalar joints are grossly intact. Narrowing of the talonavicular joint with dorsal spur from the talus noted. IMPRESSION: 1. Some osteoarthritic changes greatest at the 1st MTP joint, some of the tarsal articulations and talonavicular joint. 2. Bones demineralized. No visible fracture or avulsion. 3. Plantar calcaneal spur noted. 4. Diffuse but scattered soft tissue calcifications in the plantar aponeurosis suggesting chronic plantar fasciitis. <Electronically signed by Brendan Gomez > 11/25/20 [id number]
== END ==
LOC: M RAD 11:11
PROVIDERS: ATTEND Physician Assistant
DX: M79.672 Pain in left foot (principal); M19.079 Primary osteoarthritis, unspecified ankle and foot; M85.872 Other specified disorders of bone density and structure, left ankle and foot; M77.32 Calcaneal spur, left foot

== ENCOUNTER → 2020-12-01 | Outpatient (CLI) | payer MEDICARE ==
[2020-12-01 16:06] LABS: ALBUMIN 4.1 GM/DL (3.2-5.2); BILIRUBIN,TOTAL 0.4 MG/DL (0.2-1.0); CALCIUM LEVEL 10.1 MG/DL (8.8-10.2); CREATININE FOR GFR 1.87 MG/DL (0.55-1.30); GLOMERULAR FILTRATION RATE 27.5 (>32); POTASSIUM SERUM 4.9 MEQ/L (3.5-5.1); TOTAL PROTEIN 8.3 GM/DL (6.4-8.2)
== END ==
LOC: M LAB 14:23
PROVIDERS: ATTEND Physician Assistant
DX: R06.02 Shortness of breath (principal)

== ENCOUNTER → 2020-12-15 | Outpatient (CLI) | payer MEDICARE ==
[2020-12-15 16:43] LABS: ALBUMIN 4.1 GM/DL (3.2-5.2); BILIRUBIN,TOTAL 0.2 MG/DL (0.2-1.0); CALCIUM LEVEL 9.5 MG/DL (8.8-10.2); CREATININE FOR GFR 0.98 MG/DL (0.55-1.30); POTASSIUM SERUM 4.6 MEQ/L (3.5-5.1); TOTAL PROTEIN 7.7 GM/DL (6.4-8.2)
== END ==
LOC: M LAB 15:32
PROVIDERS: ATTEND Physician Assistant
DX: I50.9 Heart failure, unspecified (principal)

== ENCOUNTER 2021-01-12 18:31 | Inpatient (IN) | payer MEDICARE ==
[~2021-01-12] VITALS: Ht 157.5 cm; Wt 65.1 kg
[2021-01-12] MEDS ORDERED: ONDANSETRON 4MG/2ML VIAL IV ONE (19:40)
[2021-01-12] MEDS: MORPHINE 2 MG/ML 1ML VIAL (J2270) IV PRN ×2 (19:49→21:57)
--- NOTE | 2021-01-12 21:36 | REPVR ---
PROCEDURE INFORMATION: Exam: XR Right Femur Exam date and time: 01/12/2021 8:22 PM Age: 80 years old Clinical indication: Pain; Thigh; Right; Additional info: Fall from 2 feet, unable to move right leg TECHNIQUE: Imaging protocol: XR Right femur. Views: 2 views. COMPARISON: No relevant prior studies available. FINDINGS: Bones/joints: The distal femur and knee are intact with normal alignment. Proximal femur is not in the available images. There is periarticular spurring and chondrocalcinosis at the knee. No erosive changes. Soft tissues: Arterial vascular calcifications are noted. IMPRESSION: 1. No fracture or malalignment. 2. Osteoarthritis at the knee. Electronically signed by: Abhijeet Saenz On 01/12/2021 21:35:32 PM
--- NOTE | 2021-01-12 21:39 | REPVR ---
PROCEDURE INFORMATION: Exam: XR Right Hip Exam date and time: 01/12/2021 8:22 PM Age: 80 years old Clinical indication: Hip pain; Right hip; Additional info: Hip fracture seen on femur xray TECHNIQUE: Imaging protocol: XR Right hip. Views: 2 or 3 views hip with pelvis when performed. COMPARISON: No relevant prior studies available. FINDINGS: Bones/joints: There is impacted right intertrochanteric femur fracture. Alignment at the hips is normal. 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 Advanced degenerative changes in the lumbar spine and pelvis. No displaced pelvic fractures. Soft tissues: Unremarkable. IMPRESSION: Right intertrochanteric femur fracture. Electronically signed by: Abhijeet Saenz On 01/12/2021 21:38:45 PM
--- NOTE | 2021-01-12 21:40 | REPVR ---
PROCEDURE INFORMATION: Exam: XR Chest Exam date and time: 01/12/2021 8:22 PM Age: 80 years old Clinical indication: Injury or trauma; Fall; Sprain or strain; Additional info: Hip fracture seen on femur xray TECHNIQUE: Imaging protocol: XR of the chest. Views: 1 view. COMPARISON: CR PORTABLE CHEST X-RAY 11/18/2020 8:25 PM FINDINGS: Lungs: Clear. No consolidation. Pleural spaces: Unremarkable. No pleural effusion. No pneumothorax. Heart/Mediastinum: Mild cardiomegaly. Bones/joints: Unremarkable. Soft tissues: Surgical clips are noted in the right breast. IMPRESSION: 1. No acute findings. 2. Cardiomegaly. Electronically signed by: Abhijeet Saenz On 01/12/2021 21:39:52 PM
--- NOTE | 2021-01-12 21:44 | REPVR ---
PROCEDURE INFORMATION: Exam: XR Right Tibia and Fibula Exam date and time: 01/12/2021 8:22 PM Age: 80 years old Clinical indication: Pain; Hip; Right; Additional info: Fall from 2 feet, unable to move right leg TECHNIQUE: Imaging protocol: XR Right tibia and fibula. Views: 2 views. COMPARISON: CR Femur RIGHT 01/12/2021 7:35 PM FINDINGS: Bones/joints: Advanced osteoarthritis with chondrocalcinosis at the knee. No fracture or malalignment. Soft tissues: Unremarkable. IMPRESSION: No fracture or malalignment. Electronically signed by: Abhijeet Saenz On 01/12/2021 21:43:39 PM
[2021-01-12 21:59] LABS: BASO # 0.1 10^3/uL (0.0-0.2); BASO % 0.9 % (0.0-1.0); EOS # 0.5 10^3/uL (0.0-0.5); EOS % 5.3 % (0.0-3.0); LYMPH # 1.9 10^3/uL (1.5-5.0); LYMPH % 22.7 % (24.0-44.0); MEAN CORPUSCULAR HGB CONC 31.6 g/dl (32.0-36.5); MONO # 0.6 10^3/uL (0.0-0.8); MONO % 7.4 % (2.0-8.0); NEUTROPHILS # 5.4 10^3/uL (1.5-8.5); NEUTROPHILS % 63.5 % (36.0-66.0); PLATELET COUNT, AUTOMATED 235 10^3/uL (150-450); WHITE BLOOD COUNT 8.6 10^3/uL (4.0-10.0)
[2021-01-12 22:10] LABS: INR 0.96
[2021-01-12 22:11] LABS: PARTIAL THROMBOPLASTIN TIME 25.9 SECONDS (24.2-38.5)
[2021-01-12 22:14] LABS: CALCIUM LEVEL 8.9 MG/DL (8.8-10.2); CREATININE FOR GFR 1.46 MG/DL (0.55-1.30); GLOMERULAR FILTRATION RATE 36.6 (>32); POTASSIUM SERUM 5.6 MEQ/L (3.5-5.1)
[2021-01-12] MEDS ORDERED: AMLO2.5T3 PO (23:11)
[2021-01-12] MEDS ORDERED: POTA1TAB14 PO (23:11)
[2021-01-12] MEDS ORDERED: VITA500T41 PO (23:11)
[2021-01-12] MEDS ORDERED: MAALOX 30 ML SUSP *UDC PO PRN (23:40)
[2021-01-12] MEDS ORDERED: MOM 30ML SUSPENSION UDC PO PRN (23:40)
--- NOTE | 2021-01-12 23:52 | IPNPDOC ---
Text Note Date of Service The patient was seen on 01/12/21. NOTE time of service 1155pm is an 80 yr old w HFpEF, depression & HTN who is admitted for right femur fx & CRISTIANA (possibly due to congestion). Plan: f/u w Ortho & f/u on CRISTIANA work up Periop eval: her RCRI score = 1 -Prior to proceeding with surgery we will need to check a BNP if it is >300 she will need to be put on tele and have her troponins checked daily -We will hold her ACEI to reduce the risk of perioperative hypotension; if her CRISTIANA has resolved this can be resumed on post op day two VS,Fishbone, I+O VS, Fishbone, I+O Laboratory Tests 01/12/21 21:35 Vital Signs Date Time Temp Pulse Resp B/P (MAP) Pulse Ox O2 Delivery O2 Flow Rate FiO2 01/12/21 22:46 97.6 67 18 125/59 (81) 97 Room Air ARNULFO NEWBY MD January 12, 2021 23:52
[2021-01-13] MEDS ORDERED: MORPHINE 2 MG/ML 1ML VIAL (J2270) IV ONE (00:20)
[2021-01-13 01:28] VITALS: BP 135/72
[2021-01-13] MEDS ORDERED: MORPHINE 2 MG/ML 1ML VIAL (J2270) IV PRN (01:40)
[2021-01-13 01:58] LABS: HEMOGLOBIN 11.2 g/dl (12.0-15.5); MEAN CORPUSCULAR HEMOGLOBIN 29.9 pg (27.0-33.0); MEAN CORPUSCULAR VOLUME 93.6 fl (80.0-96.0); PLATELET COUNT, AUTOMATED 233 10^3/uL (150-450); RED BLOOD COUNT 3.74 10^6/uL (4.00-5.40); WHITE BLOOD COUNT 12.8 10^3/uL (4.0-10.0)
[2021-01-13] MEDS: ACETAMINOPHEN TAB 650MG DOSE (2X325MG) PO PRN ×2 (01:59→06:36)
--- NOTE | 2021-01-13 02:06 | HPEPDOC ---
[facility] Medical History & Physical Date of Admission January 13, 2021 Date of Service: January 13, 2021 Attending Physician: ARNULFO NEWBY MD History and Physical CHIEF COMPLAINT: Mechanical fall resulting in a right intertrochanteric hip fracture HISTORY OF PRESENT ILLNESS: Monica is a kaylin 80-year-old female with a past medical history of congestive heart failure, hypertension, unfortunately, had a mechanical fall while walking on her back porch when she slipped and fell directly on her right hip. Soon after she experienced excruciating pain localized at the right hip area. She did not hit her head. She denies any loss of consciousness, aura, confusion, vision changes, palpitations, sweating or dizziness during and after the episode. Patient does not have a history of fractures and is not on any blood thinners. However, patient does take vitamin D regularly at home. As per the patient, she got a DEXA scan some years ago which was normal and did not show any osteopenia. In the ED, patient underwent a full workup. CT head was negative, CT cervical spine negative. X-ray hip shows an intertrochanteric fracture. All told, was consulted while going to admit her and scheduled her for surgery. PAST MEDICAL HISTORY: 1. Congestive heart failure.Grade 2 LV diastolic dysfunction (pseudonormal LV fi lling pattern). As per her recent echo done in October 2020 2., Hypertension. PAST SURGICAL HISTORY: 1. Colonoscopy in sep 2020 2. Endoscopy in sep 2020 SOCIAL HISTORY: Tobacco use: Never ETOH: Occasional Illicit drug use: Denies FAMILY HISTORY: Father: Diabetes mellitus, heart problems Mother:. Diabetes mellitus type 2 Siblings:. Brother, diabetes mellitus type 2 ALLERGIES: Please see below. REVIEW OF SYSTEMS: General: Reports: Normal Appetite; Denies: Fatigue, Malaise Constitutional: Denies: Fever, Chills, Sweats, Weakness, Malaise Eyes: Denies: Pain, Vision change ENT: Denies: Head Aches, Sore Throat, Epistaxis Skin: Denies: Rash, Lesions, Breakdown, Nail Changes Pulmonary: Denies: Dyspnea, Cough Cardiovascular: Denies Chest Pain, Denies Palpitations Gastrointestinal: Denies: Nausea, Vomiting, Abdominal Pain, diarrhea,constipation Genitourinary: Denies: Dysuria, Frequency, Incontinence, Hematuria Hematologic: Denies: Bruising, Bleeding Excessively Endocrine: Denies: Polydipsia, Polyphagia, Polyuria Musculoskeletal: Reports: Extreme pain in her right hip. Denies: Neck Pain, Back Pain Neurological: Denies: Weakness, Numbness, Incoordination, Change in Speech Psych: Reports: Mood Normal; Denies: Anxiety, Depression HOME MEDICATIONS: Please see below. PHYSICAL EXAMINATION: VITAL SIGNS: Temperature 98.2, pulse 69, respiratory rate 20, blood pressure 135/72, pulse oximetry, 98 % on room air. GENERAL APPEARANCE: Patient looks alert, cooperative, in severe distress, because of pain HEENT: Atraumatic, normocephalic, moist mucous membranes, no conjunctival pallor, no scleral icterus PERRLA, EOMI. CARDIOVASCULAR: S1 and S2 heard, rate and rhythm normal. No murmurs appreciated. LUNGS:. Clear to auscultation bilaterally, no wheezing, rhonchi or crackles heard. ABDOMEN: Nondistended, nontender, no organomegaly, no rashes. EXTREMITIES: Patient's right hip looks a little swollen, bruised mal aligned NEUROLOGICAL: 5/5 motor strength, sensations intact. PSYCHIATRIC:, Normal mood and affect. LABORATORY DATA: See below. IMAGING: -Hip AP and lateral x-ray done on 01/12/2021 shows a right intertrochanteric femur fracture. -Femur x-ray done on 01/12/2021 shows no acute fracture. -X-ray tibia and fibula done on 01/12/2021 shows no acute fracture or malalignment -Chest x-ray done on 01/12/2021 shows cardiomegaly with no acute findings. MICROBIOLOGY: Please see below. ASSESSMENT AND PLAN: Monica is a kaylin 80-year-old female with a past medical history of congestive heart failure, hypertension, unfortunately, had a mechanical fall while walking on her back porch when she slipped and fell directly on her right hip. Soon after she experienced excruciating pain localized at the right hip area. She did not hit her head. She denies any loss of consciousness, aura, confusion, vision changes, palpitations, sweating or dizziness during and after the episode. Patient does not have a history of fractures and is not on any blood thinners. However, patient does take vitamin D regularly at home. As per the patient, she got a DEXA scan some years ago which was normal and did not show any osteopenia. In the ED, patient underwent a full workup. CT head was negative, CT cervical spine negative. X-ray hip shows an intertrochanteric fracture. All told, was consulted while going to admit her and scheduled her for surgery. . 1. Mechanical fall resulting in right hip fracture secondary to injury versus osteoporosis versus osteopenia: -Imaging shows a right intertrochanteric fracture -Patient's vitals continuously being monitored -Patient was started on pain medicines -Orthopedic surgery was consultedthey recommended admission for surgery.- Further recommendations are appreciated. -Patient was kept on bedrest. 2. Congestive heart failure, grade 2 with diastolic dysfunction: -Patient will continue on her home meds. -Her echo was done, very recently in October 2020. 3., Hypertension: -We will continue her home medication. DVT prophylaxis: Subcutaneous heparin 5000 units every 8 hours. DISPOSITION: Patient requires surgery and possible ARU admission after. ARU screen ordered. . Vital Signs Vital Signs Date Time Temp Pulse Resp B/P (MAP) Pulse Ox O2 Delivery O2 Flow Rate FiO2 01/13/21 01:28 98.2 59 20 135/72 (93) 98 Room Air Laboratory Data Labs 24H Laboratory Tests 2 01/12/21 21:35: Immature Granulocyte % (Auto) 0.2, Neutrophils (%) (Auto) 63.5, Lymphocytes (%) (Auto) 22.7L, Monocytes (%) (Auto) 7.4, Eosinophils (%) (Auto) 5.3H, Basophils (%) (Auto) 0.9, Neutrophils # (Auto) 5.4, Lymphocytes # (Auto) 1.9, Monocytes # (Auto) 0.6, Eosinophils # (Auto) 0.5, Basophils # (Auto) 0.1, Nucleated Red Blood Cells % (auto) 0.0, Anion Gap 7L, Glomerular Filtration Rate 36.6, Calcium Level 8.9 01/12/21 21:51: Prothrombin Time 13.0, Prothromb Time International Ratio 0.96, Activated Partial Thromboplast Time 25.9 CBC/BMP Laboratory Tests 01/12/21 21:35 Microbiology Microbiology 01/12/21 Respiratory Virus Panel (PCR) (MARVIN) - Final, Complete Human Rhinovirus/Enterovirus Home Medications Scheduled Amlodipine Besylate (Amlodipine Besylate) 2.5 Mg Tablet, 2.5 MG PO QHS Cyanocobalamin (Vitamin B-12) (Vitamin B-12) 500 Mcg Tablet, 500 MCG PO DAILY Docusate Sodium (Dok) 100 Mg Tablet, 100 MG PO BID Ergocalciferol (Vitamin D2) (Vitamin D2) 50,000 Units Cap, 50,000 UNITS PO QWEEK SATURDAY Ferrous Sulfate, Dried (Slow Release Iron) 160 Mg Tablet.er, 160 MG PO BID Furosemide (Furosemide) 40 Mg Tablet, 40 MG PO DAILY Lisinopril (Lisinopril) 10 Mg Tablet, 10 MG PO DAILY Omeprazole (Omeprazole) 20 Mg Capsule.dr, 20 MG PO DAILY Potassium Chloride (Potassium Chloride) 20 Meq Tablet.er, 20 MEQ PO DAILY Sertraline Hcl (Zoloft) 100 Mg Tablet, 100 MG PO DAILY Simvastatin (Simvastatin) 20 Mg Tablet, 20 MG PO DAILY Allergies Coded Allergies: No Known Allergies (Unverified , 09/12/20) A-FIB/CHADSVASC A-FIB History Current/History of A-Fib/PAF?: No Current PO Anticoag Therapy: No Age/Risk Factor Scoring CHADSVASC: CHADSVASC Response (Comments) Value Age Risk Factor Age >/= 75 years old 2 Gender Risk Factor Female 1 Hx of CHF Yes 1 Hx of HTN Yes 1 Hx of Stroke/TIA/or VTE No 0 Hx of Diabetes No 0 Hx of Vascular Disease No 0 Total 5 Treatment Treatment ordered: NONE GME ATTESTATION GME ATTESTATION My faculty preceptor for this patient encounter was physically present during the encounter and was fully available. All aspects of the patient interview, examination, medical decision making process, and medical care plan development were reviewed and approved by the faculty preceptor. The faculty preceptor is aware and concurs with the plan as stated in the body of this note and will attest to such by his/her cosignature. Julia Ahn MD January 13, 2021 01:32
[2021-01-13 02:36] LABS: ALBUMIN 3.8 GM/DL (3.2-5.2); ALT/SGPT 18 U/L (12-78); BILIRUBIN,TOTAL 0.3 MG/DL (0.2-1.0); BLOOD UREA NITROGEN 33 MG/DL (7-18); CALCIUM LEVEL 9.1 MG/DL (8.8-10.2); CARBON DIOXIDE LEVEL 24 MEQ/L (21-32); CHLORIDE LEVEL 108 MEQ/L (98-107); GLOMERULAR FILTRATION RATE 35.5 (>32); GLUCOSE, FASTING 146 MG/DL (70-100); POTASSIUM SERUM 4.2 MEQ/L (3.5-5.1); SODIUM LEVEL 140 MEQ/L (136-145); TOTAL PROTEIN 7.2 GM/DL (6.4-8.2)
[2021-01-13 06:00] VITALS: BP 114/58
[2021-01-13] MEDS: HEPARIN SOD (PORCINE) 5000UNITS/ML 1ML VIAL/SYRINGE SC SCH ×3 (06:37→20:37)
[2021-01-13 07:59] LABS: NT-PRO BNP 1983 PG/ML (<450); TROPONIN I < 0.02 NG/ML (< 0.10)
[2021-01-13] MEDS ORDERED: FUROSEMIDE 40 MG TAB PO SCH (09:00)
--- NOTE | 2021-01-13 09:03 | REP ---
INDICATION: ki COMPARISON: 08/23/2020 TECHNIQUE: Real time salcedo scale ultrasound examination using curved array transducer. FINDINGS: The kidneys are normal in reniform shape with increased central sinus fat and cortical thinning suggesting chronic medical renal disease. No hydronephrosis, nephrolithiasis, cystic or renal mass lesion. Right kidney measures 9.8 x 4.7 x 4.4 cm. Left kidney measures 8.1 x 4.9 x 5.1 cm. Bladder is unremarkable. IMPRESSION: 1. Chronic medical renal disease. 2. No significant hydronephrosis <Electronically signed by Javid Matthews > 01/13/21 0900
[2021-01-13] MEDS: CYANOCOBALAMIN 500 MCG TAB PO SCH (09:22)
[2021-01-13] MEDS: MORPHINE 2 MG/ML 1ML VIAL (J2270) IV PRN ×4 (09:22→20:38)
[2021-01-13] MEDS: SERTRALINE 100 MG TAB PO SCH (09:22)
[2021-01-13] MEDS: OMEPRAZOLE 20 MG CAP PO SCH (09:22)
[2021-01-13] MEDS: SIMVASTATIN 20 MG TAB PO SCH (09:23)
--- NOTE | 2021-01-13 11:26 | IPNPDOC ---
Text Note Date of Service The patient was seen on 01/13/21. NOTE Subjective: Patient seen and examined this morning at bedside. Tells me she has some right hip pain but otherwise feels well she denies any chest pain or shortness of breath denies fevers or chills. She endorses increased lower extremity swelling. Objective: Constitutional: Awake and alert, in no apparent distress ENT: Sclera are clear. Mucosa is moist. Respiratory: Lungs CTA bilaterally. No respiratory distress. No use of accessory muscles. Cardiovascular: RRR S1 and S2 are normal, no murmur Gastrointestinal: Abdomen is soft, non distended, non tender, BS present. Musculoskeletal: 2+ pitting lower extremity edema bilaterally. Tenderness to palpation over the right hip there is some bruising there. Limited range of movement at the hip. Neurologic: No focal neurological deficit. Mental Status: A&O x3, normal affect Assessment/plan: 80-year-old female history of congestive heart failure and hypertension who sustained a mechanical fall resulting in a closed right hip fracture. Patient found to be in fluid overload with acute kidney injury patient admitted for further management and optimization prior to potential surgery. # Acute on chronic CHFpEF: fluid overloaded on exam. IV lasix. Recent echo showing grade 2 diastolic dysfunction. Monitor ins/outs. Restrict fluid intake. # CRISTIANA: cr 1.5. Cr 0.98 last month. likely from fluid overload. Will obtain FeUrea. Fu renal US. Avoid nephrotoxins. If renal function doesn't improve consider nephrology consult. # R hip closed fracture: not cleared for surgery yet. Needs to be medically optimized first. PT/OT eval post op. per admission notes orthopedic surgery was consulted. # Hypertension: Continue home meds. Monitor and titrate # DVT prophylaxis: Heparin A [place] [facility] VS,[place], I+O VS, Fishbone, I+O Laboratory Tests 01/12/21 21:35 01/13/21 01:50 Vital Signs Date Time Temp Pulse Resp B/P (MAP) Pulse Ox O2 Delivery O2 Flow Rate FiO2 01/13/21 09:32 18 01/13/21 06:00 97.5 90 114/58 (76) 96 Room Air I&O- Last 24 Hours up to 6 AM 01/13/21 06:00 Intake Total 200 ml Balance 200 ml TITO JONES MD January 13, 2021 11:26
[2021-01-13] MEDS: FUROSEMIDE 20MG/2ML VIAL (J1940) IV SCH ×2 (12:21→16:20)
[2021-01-13 14:48] VITALS: BP 124/73
--- NOTE | 2021-01-13 20:08 | CR ---
ORTHOPEDIC CONSULTATION DATE: 01/13/2021 REASON FOR CONSULTATION: Right hip fracture. CHIEF COMPLAINT: Right hip pain. HISTORY OF PRESENT ILLNESS: The patient is an 80-year-old female with a past medical history of congestive heart failure and hypertension who yesterday was walking on her back porch, fell, sustained a mechanical fall, and had immediate pain and inability to ambulate on her right lower extremity. She was evaluated in the emergency department and admitted by the hospitalist. Orthopedics was consulted for a right hip fracture. She has no other injuries to speak of. PAST MEDICAL HISTORY: As above. PAST SURGICAL HISTORY: Colonoscopy in 09/2020. SOCIAL HISTORY: Tobacco none. Alcohol occasional. Drug use none. FAMILY HISTORY: Father diabetes and heart problems. Mother diabetes. Siblings diabetes. ALLERGIES: None. MEDICATIONS: See medical record. REVIEW OF SYSTEMS: 10-point review of systems was performed and was negative except for what is in the HPI. PHYSICAL EXAMINATION: GENERAL: Well-developed, well-nourished, in no acute distress. NEUROLOGIC: Alert and oriented x4. PSYCHIATRIC: Normal mood and affect. CARDIAC: Regular rate and rhythm. RESPIRATORY: Nonlabored breathing. Equal chest rise and fall. ABDOMEN: Nontender. SKIN: Intact. No ecchymosis, swelling, or breaks in the skin. MUSCULOSKELETAL: Focused exam of the right hip demonstrates mild swelling about the hip. Tender to palpation in the area around the hip. Limited range of motion secondary to pain. No other areas of tenderness to palpation in the knee, leg, or ankle. The patient is neurovascularly intact distally. IMAGING DATA: X-rays of the right hip were independently reviewed by myself and demonstrate a right intertrochanteric hip fracture. ASSESSMENT: This is an 80-year-old female with a right hip intertrochanteric fracture. RECOMMENDATIONS: I recommend that the patient be medically optimized and go to the OR as soon as possible for hip stabilization. It is discussed with the hospitalist and the patient the importance of expediting this as soon as we can to minimize morbidity and mortality. Currently the patient has acute kidney injury, is fluid overloaded, and requires further medical stabilization. As soon as she is medically stabilized, I recommend going to the operating room. I will be unable to be here over the weekend, but will try to find another surgeon to help take care of her for this. In the meantime, nonweightbearing right lower extremity, DVT chemo prophylaxis per the primary team, pain per the primary team, and please keep n.p.o. at midnight each night in preparation for potential trip to the operating room if she is medically stabilized.
--- NOTE | 2021-01-13 20:28 | ECGEPIP ---
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
[2021-01-13 22:00] VITALS: BP 118/71
[2021-01-14] MEDS: MORPHINE 2 MG/ML 1ML VIAL (J2270) IV PRN ×2 (01:28→08:53)
[2021-01-14] MEDS ORDERED: oxyCODONE 5MG TAB PO ONE ×4 (02:10→06:00)
[2021-01-14 05:25] VITALS: BP 128/76
[2021-01-14] MEDS: HEPARIN SOD (PORCINE) 5000UNITS/ML 1ML VIAL/SYRINGE SC SCH ×4 (05:25→21:14)
[2021-01-14] MEDS ORDERED: FUROSEMIDE 20MG/2ML VIAL (J1940) IV SCH (09:00)
[2021-01-14 09:35] LABS: HEMATOCRIT 36.1 % (36.0-47.0); HEMOGLOBIN 11.7 g/dl (12.0-15.5); MEAN CORPUSCULAR HGB CONC 32.4 g/dl (32.0-36.5); MEAN CORPUSCULAR VOLUME 92.6 fl (80.0-96.0); PLATELET COUNT, AUTOMATED 219 10^3/uL (150-450); WHITE BLOOD COUNT 9.9 10^3/uL (4.0-10.0)
[2021-01-14 09:57] LABS: CREATININE FOR GFR 1.16 MG/DL (0.55-1.30); GLOMERULAR FILTRATION RATE 47.7 (>32); MAGNESIUM LEVEL 1.7 MG/DL (1.8-2.4); POTASSIUM SERUM 4.4 MEQ/L (3.5-5.1)
[2021-01-14] MEDS ORDERED: traMADol 50 MG TAB PO PRN (10:40)
[2021-01-14] MEDS: MIRALAX *UNIT DOSE* 17GM PACKET PO SCH (11:19)
[2021-01-14] MEDS: CYANOCOBALAMIN 500 MCG TAB PO SCH (11:19)
[2021-01-14] MEDS: OMEPRAZOLE 20 MG CAP PO SCH (11:20)
[2021-01-14] MEDS: SIMVASTATIN 20 MG TAB PO SCH (11:20)
[2021-01-14] MEDS: SERTRALINE 100 MG TAB PO SCH (11:20)
--- NOTE | 2021-01-14 12:18 | IPNPDOC ---
Text Note Date of Service The patient was seen on 01/14/21. NOTE Subjective: -Pain overnight 2/2 recent fracture and got 1 time dose oxycodone. -Is in severe pain this morning 10/ declining to even sit up, will only tolerating laying supine and wont even head put up. Objective: Constitutional: Awake and alert, in no apparent distress ENT: Sclera are clear. Mucosa is moist. Respiratory: Lungs CTA bilaterally. No respiratory distress. No use of accessory muscles. On 2L NC Cardiovascular: RRR, S1 and S2 are normal, no murmur Abdomen: Abdomen is soft, non distended, non tender, BS present. Extremities: Improved now trace pitting lower extremity edema bilaterally. Tenderness to palpation over the right hip. Limited range of movement at the R hip. Neurologic: Cranial nerves appear intact, no focal neurological deficit. Limited range of movement at the R hip, limited by pain. Mental Status: A&O x3, normal affect Labs: Pending AM labs Assessment/plan: 80-year-old female history of congestive heart failure and hypertension who sustained a mechanical fall resulting in a closed right hip fracture who is pending orthopedic surgery but requires medical optimization first with nora fluid overload with congestive acute kidney injury. # Acute on chronic HFpEF: Persistent fluid overloaded on exam. On low dose IV lasix. -Recent echo showing grade 2 diastolic dysfunction. -Increase her diuretic dose to twice her baseline diuretic dose for optimal diuresis because the current dosing is not working. Will increase to 40mg IV lasix BID -Monitor ins/outs. -Restrict fluid intake at 1.8L/24h # Congestive nephropathy: cr 1.5. Cr 0.98 last month with nora volume overload. -renal US was unremarkable without postobstructive pathology. -Avoid nephrotoxins. -begin aggressive diuresis starting with 40 IV BID lasix -If renal function worsens with diuresis will then consider nephrology consult. # R hip closed fracture: not yet cleared for surgery yet because of nora decompensated heart failure with volume overload and congestive nephropathy -Needs to be medically optimized first, diuresis plan as noted above -PT/OT eval post op -Orthopedic surgery was consulted, pending medical percecet 1 tab Q4HP for mod pain, 2tabs Q6HP for severe pain, tramadol 50Q6HP for mild pain and continue the morphine [id number] for breakthrough severe pain. -Tentative plan per ortho is for OR tomorrow AM (Monday 01/15 at 8AM). NPO at midnight # Hypertension: -Continue amlodipine 2.5 QD # DVT prophylaxis: Heparin VS,Fishbone, I+O VS, Fishbone, I+O Vital Signs Date Time Temp Pulse Resp B/P (MAP) Pulse Ox O2 Delivery O2 Flow Rate FiO2 01/14/21 05:29 16 01/14/21 05:25 98.2 78 128/76 (93) 95 Nasal Cannula 2.0 I&O- Last 24 Hours up to 6 AM 01/14/21 06:00 Intake Total 1200 ml Output Total 1375 ml Balance -175 ml KRISTINA FONSECA MD January 14, 2021 08:14
[2021-01-14] MEDS: PERCOCET 5MG/325MG TAB PO PRN ×2 (13:22→19:43)
[2021-01-14 14:31] VITALS: BP 116/68
[2021-01-14] MEDS ORDERED: MAG SULF 1GM/100ML (MAG RUN) 1 GM in IV 1 EA IV ONE (15:05)
[2021-01-14 16:00] VITALS: BP 104/64
[2021-01-14 19:31] VITALS: BP 114/61
[2021-01-14 21:04] VITALS: BP 109/66
--- NOTE | 2021-01-14 21:40 | ECGEPIP ---
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
--- NOTE | 2021-01-14 21:42 | ECGEPIP ---
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
[2021-01-14 23:55] VITALS: BP 113/65
[2021-01-15] VITALS (7 sets, daily range): BP systolic 100–144; BP diastolic 61–75
[2021-01-15] MEDS: PERCOCET 5MG/325MG TAB PO PRN ×2 (00:52→21:58)
[2021-01-15 03:57] LABS: HEMATOCRIT 34.5 % (36.0-47.0); HEMOGLOBIN 11.3 g/dl (12.0-15.5); MEAN CORPUSCULAR HEMOGLOBIN 29.8 pg (27.0-33.0); MEAN CORPUSCULAR HGB CONC 32.8 g/dl (32.0-36.5); PLATELET COUNT, AUTOMATED 223 10^3/uL (150-450); RED BLOOD COUNT 3.79 10^6/uL (4.00-5.40); WHITE BLOOD COUNT 10.6 10^3/uL (4.0-10.0)
[2021-01-15 04:29] LABS: CREATININE FOR GFR 1.29 MG/DL (0.55-1.30); GLOMERULAR FILTRATION RATE 42.2 (>32)
--- NOTE | 2021-01-15 07:45 | IPNPDOC ---
Text Note Date of Service The patient was seen on 01/15/21. NOTE Subjective: -Pain is a bit better controlled and can now at least have a head up 30 degree and tolerate the angle -NPO for surgery -Now on room air -Yesterday she was transferred to the PCU for closer monitoring with telemetry for noted mild tachycardia but EKG and telemetry continued to show NSR with mild PVCs. Tachycardia was likely precipitated by pain. -had chew placed overnight for retention but also has severe pain with any movement of the hip and so will keep chew till surgery is complete and pain is better controlled Objective: Constitutional: Awake and alert, in no apparent distress ENT: Sclera are clear. Mucosa is moist. Respiratory: Lungs CTA bilaterally. No respiratory distress. No use of accessory muscles. On 2L NC Cardiovascular: RRR, S1 and S2 are normal, no murmur Abdomen: Abdomen is soft, non distended, non tender, BS present. Extremities: No lower extremity edema bilaterally. Tenderness to palpation over the right hip. Limited range of movement at the R hip. Neurologic: Cranial nerves appear intact, no focal neurological deficit. Limited range of movement at the R hip, limited by pain. Mental Status: A&O x3, normal affect Labs: WBC 10.6 Hgb 11.3 Platelets 223 na 134 K 4 Cr 1.29 Mag 2 Assessment/plan: 80-year-old W with a history of congestive heart failure and hypertension who sustained a mechanical fall resulting in a closed right hip fracture who is pending orthopedic surgery today for her hip whose surgery now that she is euvolemic and medically optimized. Periop eval: her RCRI score = 1 -Prior to proceeding with surgery she required volume optimization and is now euvolemic on examination and is now breathing comfortably on room air and her CRISTIANA has improved. With regard to BNP, it was elevated at 1938 at presentation and she had 2+ LE edema and hypoxemia with crackles on exam with an CRISTIANA that have now all resolved, we will check this AM but her clinical examination improvement is reassuring enough and a better indicator than trending of a single indicator measurement that is also affected by other factors and may be elevated at baseline. Will check this AM for downtrend. -She has no chest pain, palpitations, and has had 2 EKGs in the last 24h without ischemic signs or dysrhythmia activity -We continue to hold her ACEI to reduce the risk of perioperative hypotension and in the setting of a recent CRISTIANA -She is at this time, optimized for surgery. # Acute on chronic HFpEF: Now euvolemic -Recent echo showing grade 2 diastolic dysfunction. -Will hold diuretic at this time and will resume baseline PO dosing 24h post-op -Monitor ins/outs. -NPO for surgery # Congestive nephropathy: Improved with diuresis -renal US was unremarkable without postobstructive pathology. -Avoid nephrotoxins. -Hold diuretics at this time per-op and with slight Cr bump # R hip closed fracture: Now cleared for surgery -Needed to be medically optimized first, s/p IV diuretics now euvolemic and CRISTIANA improved -PT/OT eval post op -Orthopedic surgery was consulted, NPO for surgery today -Pain management thus far with percocet 1 tab Q4HP for mod pain, 2tabs Q6HP for severe pain, tramadol 50Q6HP for mild pain and continue the morphine [id number] for breakthrough severe pain. # Hypertension: - amlodipine 2.5 QHS # DVT prophylaxis: Heparin VS,Fishbone, I+O VS, Fishbone, I+O Laboratory Tests 01/14/21 09:09 01/15/21 03:42 Vital Signs Date Time Temp Pulse Resp B/P (MAP) Pulse Ox O2 Delivery O2 Flow Rate FiO2 01/15/21 03:58 97.3 62 14 100/65 (77) 90 Room Air 01/14/21 09:00 2.0 I&O- Last 24 Hours up to 6 AM 01/15/21 06:00 Intake Total 100 ml Output Total 0 ml Balance 100 ml KRISTINA FONSECA MD January 15, 2021 07:45
[2021-01-15] MEDS: SIMVASTATIN 20 MG TAB PO SCH (08:07)
[2021-01-15] MEDS: CYANOCOBALAMIN 500 MCG TAB PO SCH (08:07)
[2021-01-15] MEDS: OMEPRAZOLE 20 MG CAP PO SCH (08:07)
[2021-01-15] MEDS: MIRALAX *UNIT DOSE* 17GM PACKET PO SCH (08:07)
[2021-01-15] MEDS: SERTRALINE 100 MG TAB PO SCH (08:08)
[2021-01-15] MEDS ORDERED: FUROSEMIDE 20MG/2ML VIAL (J1940) IV SCH (09:00)
[2021-01-15] MEDS: MORPHINE 2 MG/ML 1ML VIAL (J2270) IV PRN ×2 (09:40→16:39)
[2021-01-15] MEDS ORDERED: ceFAZolin 2 GM/D5W 50 ML IV BAG (J0690 PER 500MG) As Ordered ONE (10:58)
[2021-01-15] MEDS ORDERED: LIDOCAINE 2% 100MG/5ML SDV (FOR ANES.) As Ordered ONE (11:17)
[2021-01-15] MEDS ORDERED: HYDROmorphone HCL 2 MG/ML 1ML VIAL (J1170) As Ordered ONE (11:17)
[2021-01-15] MEDS ORDERED: MIDAZOLAM INJ 2MG/2ML VIAL (J2250 PER 1MG) As Ordered ONE (11:17)
[2021-01-15] MEDS ORDERED: fentaNYL 100 MCG/2 ML INJECTION (J3010) As Ordered ONE (11:17)
[2021-01-15] MEDS ORDERED: PHENYLephrine 500MCG 5ML (100MCG/ML) SYRINGE As Ordered ONE (11:17)
[2021-01-15] MEDS ORDERED: ROCURONIUM BROMIDE 50 MG/5 ML VIAL As Ordered ONE (11:17)
[2021-01-15] MEDS ORDERED: ONDANSETRON 4MG/2ML VIAL As Ordered ONE (11:17)
[2021-01-15] MEDS ORDERED: propofoL 200 MG/20 ML VIAL As Ordered ONE (11:17)
[2021-01-15] MEDS ORDERED: VASOPRESSIN INJ 20 UNITS/ML VIAL As Ordered ONE (11:17)
[2021-01-15] MEDS ORDERED: dexameTHASONE 4 MG/ML 1ML VIAL (J1100 PER 1MG) As Ordered ONE (11:17)
[2021-01-15] MEDS ORDERED: SUGAMMADEX SODIUM 500 MG/5 ML VIAL (BRIDION) As Ordered ONE (12:12)
--- NOTE | 2021-01-15 12:31 | REP ---
INDICATION: RIGHT IM NAIL. COMPARISON: Comparison radiographs of the right hip are from January 12, 2021.. TECHNIQUE: Thirteen views, 2 minutes 22 seconds of fluoroscopy time. FINDINGS: A sequence of 13 fluoroscopically obtained last image hold spot radiographs of the right hip document open reduction internal fixation for intertrochanteric fracture. IMPRESSION: Procedural imaging. <Electronically signed by Nelson Ansari > 01/15/21 [id number]
[2021-01-15] MEDS ORDERED: LR 1,000 ML IV SCH (13:00)
[2021-01-15] MEDS ORDERED: oxyCODONE 5MG TAB PO PRN (13:00)
[2021-01-15] MEDS ORDERED: ONDANSETRON 4MG/2ML VIAL IV PRN (13:00)
[2021-01-15] MEDS ORDERED: fentaNYL 100 MCG/2 ML INJECTION (J3010) IV PRN (13:00)
[2021-01-15] MEDS ORDERED: HYDROMORPHONE HCL 0.5 MG/ 0.5 ML SYRINGE (J1170 PER 1) IV PRN (13:00)
[2021-01-15] MEDS: HEPARIN SOD (PORCINE) 5000UNITS/ML 1ML VIAL/SYRINGE SC SCH ×2 (14:00→21:19)
--- NOTE | 2021-01-15 15:18 | RO ---
OPERATIVE NOTE DATE OF OPERATION: 01/15/2021 TIME: 11 a.m. PREOPERATIVE DIAGNOSIS: Right intertrochanteric hip fracture, closed. POSTOPERATIVE DIAGNOSIS: Right intertrochanteric hip fracture, closed. NAME OF OPERATION: Right hip cephalomedullary nail, short. SURGEON: Aiden Morocho MD SLITTER CUT OFF OPERATOR: None. SUPERVISING ATTENDING: Aiden Morocho MD FINDINGS: The patient had a minimally displaced right intertrochanteric hip fracture. INDICATIONS: This was an 80-year-old female with the aforementioned right intertochanteric hip fracture with a past medical history of congestive heart failure, hypertension, who fell on her back porch on the December,, sustained a ground level fall on the right hip. The patient is unable to ambulate given her right lower extremity pain. She was evaluated in the [facility] emergency department and admitted to the hospitalist. Orthopedics was then counseled for the right hip fracture. She underwent the aforementioned surgery. ANESTHESIA: GETA. TOURNIQUET TIME: None used. ESTIMATED BLOOD LOSS: 30 mL. IV FLUIDS: Please see anesthesia report. IV ANTIBIOTICS: Please see anesthesia report. IMPLANTS: Synthes. CULTURES: None. SPECIMENS: None. DESCRIPTION OF PROCEDURE: The patient was met in the preoperative holding area where the patient's operative extremity was signed, the patient's consent was confirmed to be correct, and the patient's identity was confirmed to be correct. The patient was then transported to the operating theater where she was placed in a supine position on a regular surgical flat-top bed. A safety strap secured the patient to the bed. All bony prominences were well padded. The contralateral lower extremity had SCD placed. A timeout was called to confirm the correct patient, correct operative extremity and correct consent. All staff were in agreement. The patient was then draped in the usual sterile fashion. We began the procedure by obtaining fluoroscopic imaging to ensure that the right hip fracture was reduced. We provided provisional longitudinal traction, slight internal rotation of the hip and slight adduction. This reduced the fracture nicely on AP and lateral views. I then made a one inch skin incision approximately three fingerbreadths proximal to the tip of the greater trochanter in line with the femoral shaft and incised the IT band and then used a threaded guide pin just medial to the tip of the greater trochanter and this was advanced to the level of the lesser trochanter in line with the femoral neck and shaft. At this point, after confirming with fluoroscopy that we were satisfied with the placement of the threaded guide pin, I then used a cannulated entry reamer in order to open up the proximal end of the femoral canal. We then removed the entry reamer as well as threaded guide pin and placed a short cephalomedullary nail down the proximal aspect of the canal through the previously drilled transosseous entry tunnel. This was advanced with slight taps of the mallet down to the appropriate level. Once at this level, we then inserted the jig which was attached to the nail for lag screw placed in a 1 cm incision within the skin and ensured that the threaded guide pin for the lag screw was appropriately positioned adjacent to the calcar and in line with the femoral neck and the lateral fluoroscopic projection. This was then advanced to within 10 mm of the apex of the femoral head on the AP and lateral views. This was slightly inferiorized to ensure that the lag screw would interdigitate with good calcar bone. After the threaded guide pin was placed in the subchondral bone, we then measured the threaded guide pin to 104 mm from the tip of the screw. We then elected to proceed with a 100 mm lag screw. We then drilled 200 mm for lag screw placement and then used a tap, used the good bone quality. We then removed the tap and placed a 100 mm screw in position using fluoroscopic guidance in the AP and lateral views. We were satisfied with lag screw placement on the AP and lateral views. We then took down our skeletal traction and tightened or set screw and then backed it up 1/4 turn to make sure that the fracture could compress. We then removed our jig and placed the triple sleeve into position for a distal interlocking screw. I made a 1 cm skin incision distal to the lag screw incision and using AP fluoroscopic image, drilled to the appropriate depth which was 34 mm and then removed our drill and placed a 34 mm distal interlocking screw. I then removed the jig from the nail, copiously irrigated all surgical incisions and took final fluoroscopic imaging which ensured that we were satisfied with both the fracture reduction as well as implant placement. I closed the IT band using 0 Vicryl and closed the skin using 2-0 Vicryl of the three incisions. I then closed the epidermis using metallic pierre. The dressing was placed which was Xeroform, 4x4s and a Tegaderm bandage. The patient was then extubated without complication and transported to the postanesthesia care unit. The patient will be weightbearing as tolerated to the right lower extremity. She will follow the rehabilitative protocol for right cephalomedullary nail placement. She will be given her postoperative medications by the internal medicine team. I do recommend pain control as deemed necessary by the internal medicine team, 81 mg of aspirin for 30 days, once daily for DVT chemoprophylaxis or the equivalent DVT chemoprophylaxis medication which will be prescribed by the internal medicine team. The patient will follow up on the January, for a postoperative wound check at the [facility] orthopedic clinic.
[2021-01-16] VITALS: BP 121/62
[2021-01-16] MEDS: MORPHINE 2 MG/ML 1ML VIAL (J2270) IV PRN ×3 (01:42→11:54)
[2021-01-16 03:44] VITALS: BP 116/59
[2021-01-16 05:49] LABS: HEMATOCRIT 33.5 % (36.0-47.0); HEMOGLOBIN 10.7 g/dl (12.0-15.5); MEAN CORPUSCULAR HEMOGLOBIN 29.6 pg (27.0-33.0); MEAN CORPUSCULAR HGB CONC 31.9 g/dl (32.0-36.5); MEAN CORPUSCULAR VOLUME 92.8 fl (80.0-96.0); PLATELET COUNT, AUTOMATED 230 10^3/uL (150-450); RED BLOOD COUNT 3.61 10^6/uL (4.00-5.40); WHITE BLOOD COUNT 10.1 10^3/uL (4.0-10.0)
[2021-01-16] MEDS: PERCOCET 5MG/325MG TAB PO PRN ×3 (06:04→20:05)
[2021-01-16] MEDS: HEPARIN SOD (PORCINE) 5000UNITS/ML 1ML VIAL/SYRINGE SC SCH ×3 (06:04→21:33)
[2021-01-16 06:12] LABS: CALCIUM LEVEL 9.1 MG/DL (8.8-10.2); CREATININE FOR GFR 1.23 MG/DL (0.55-1.30); GLOMERULAR FILTRATION RATE 44.6 (>32); MAGNESIUM LEVEL 2.4 MG/DL (1.8-2.4); POTASSIUM SERUM 4.4 MEQ/L (3.5-5.1)
[2021-01-16 08:00] VITALS: BP 140/85
[2021-01-16] MEDS: OMEPRAZOLE 20 MG CAP PO SCH (08:52)
[2021-01-16] MEDS: MIRALAX *UNIT DOSE* 17GM PACKET PO SCH (08:52)
[2021-01-16] MEDS: CYANOCOBALAMIN 500 MCG TAB PO SCH (08:52)
[2021-01-16] MEDS: SIMVASTATIN 20 MG TAB PO SCH (08:52)
[2021-01-16] MEDS: SERTRALINE 100 MG TAB PO SCH (08:52)
[2021-01-16 12:00] VITALS: BP 123/58
--- NOTE | 2021-01-16 13:26 | IPNPDOC ---
Text Note Date of Service The patient was seen on 01/16/21. NOTE Subjective: -Pain is a much better controlled now that she had her operation. Sitting up, chatty, in a good mood, looking forward to trying PT and hopefully getting home soon. Objective: Vitals: please see below Constitutional: Awake and alert, in no apparent distress ENT: Sclera are clear. Mucosa is moist. Respiratory: Lungs CTA bilaterally. No respiratory distress. No use of accessory muscles. Cardiovascular: RRR, S1 and S2 are normal, no murmur Abdomen: Abdomen is soft, non distended, non tender, BS present. Extremities: No lower extremity edema bilaterally. Limited range of movement at the R hip. Neurologic: Cranial nerves appear intact, no focal neurological deficit. Limited range of movement at the R hip, limited by pain. Mental Status: A&O x3, normal affect Labs: Cr 1.23 na 134 K 4.4 WBC 10.1 hgb 10.7 platelets 230 Assessment: 80-year-old W with a history of congestive heart failure and hypertension who sustained a mechanical fall resulting in a closed right hip fracture who is POD#1 s/p R hip repair with cephalomedullary nail. R hip fracture: -POD#1 s/p R hip surgery s/p cephalomedullary nail placement -PT/OT per ortho recs, please refer to ortho operative note -Pain management thus far with percocet 1 tab Q4HP for mod pain, 2tabs Q6HP for severe pain, tramadol 50Q6HP for mild pain and continue the morphine [id number] for breakthrough severe pain. -ASA 81 for DVT ppx per ortho # Acute on chronic HFpEF: Now euvolemic -Recent echo showing grade 2 diastolic dysfunction. -lasix PO 40mg daily -Monitor ins/outs. # Congestive nephropathy: Improved with diuresis -renal US was unremarkable without postobstructive pathology. -Avoid nephrotoxins. # Hypertension: - amlodipine 2.5 QHS # DVT prophylaxis: ASA 81 QD VS,Fishbone, I+O VS, Fishbone, I+O Laboratory Tests 01/16/21 05:11 Vital Signs Date Time Temp Pulse Resp B/P (MAP) Pulse Ox O2 Delivery O2 Flow Rate FiO2 01/16/21 12:25 18 01/16/21 08:00 96.9 79 140/85 (103) 98 Nasal Cannula 2.0 I&O- Last 24 Hours up to 6 AM 01/16/21 06:00 Intake Total 1475 ml Output Total 1910 ml Balance -435 ml KRISTINA FONSECA MD January 16, 2021 13:26
--- NOTE | 2021-01-16 17:55 | IPN ---
PROGRESS NOTE DATE: 01/16/2021 TIME: 0355 p.m. SUBJECTIVE: The patient is doing very well postop day one from a right hip cephalomedullary nail performed on 01/15/2021. The patient is sitting up and has had much improved pain to the right hip without muscle spasms at today's visit. OBJECTIVE: The patient is able to move her right hip with minimal pain. Her dressing is clean, dry, and intact. The patient is alert to person, time, and place. Equal rise and fall of the chest bilaterally. Talking without pain. Right lower extremity 5/5 motor strength to the EHL, FHL, tibialis anterior, gastrocnemius, and peroneal musculature. Sensation intact to light touch to the deep and superficial peroneal, sural, saphenous, and tibial nerve distribution. 2+ dorsalis pedis and posterior tibial arterial pulse. Brisk capillary refill to the digits. ASSESSMENT AND PLAN: An 80-year-old female postoperative day one from the aforementioned surgery a right hip cephalomedullary nail. The patient will initiate physical therapy today. She is weightbearing as tolerated right lower extremity. She will likely be discharged to a rehabilitative center for gait and ambulation training. She will likely be weightbearing as tolerated with a walker. I recommend she is prescribed the equivalent of 81 mg aspirin once daily for 30 days starting this evening or tomorrow morning. She will follow-up in my orthopedic clinic at [facility] on 02/02/2021, for a postoperative wound check.
[2021-01-16 20:00] VITALS: BP 123/70
[2021-01-17] VITALS (7 sets, daily range): BP systolic 92–131; BP diastolic 50–67
[2021-01-17 05:13] LABS: HEMATOCRIT 30.4 % (36.0-47.0); HEMOGLOBIN 9.8 g/dl (12.0-15.5); MEAN CORPUSCULAR HEMOGLOBIN 29.9 pg (27.0-33.0); MEAN CORPUSCULAR HGB CONC 32.2 g/dl (32.0-36.5); MEAN CORPUSCULAR VOLUME 92.7 fl (80.0-96.0); PLATELET COUNT, AUTOMATED 254 10^3/uL (150-450); RED BLOOD COUNT 3.28 10^6/uL (4.00-5.40); WHITE BLOOD COUNT 9.5 10^3/uL (4.0-10.0)
[2021-01-17 05:34] LABS: CALCIUM LEVEL 8.9 MG/DL (8.8-10.2); CREATININE FOR GFR 1.31 MG/DL (0.55-1.30); GLOMERULAR FILTRATION RATE 41.5 (>32); MAGNESIUM LEVEL 2.1 MG/DL (1.8-2.4); POTASSIUM SERUM 4.4 MEQ/L (3.5-5.1)
[2021-01-17] MEDS: HEPARIN SOD (PORCINE) 5000UNITS/ML 1ML VIAL/SYRINGE SC SCH ×3 (05:34→21:41)
[2021-01-17] MEDS: PERCOCET 5MG/325MG TAB PO PRN ×2 (05:35→21:42)
[2021-01-17] MEDS: MIRALAX *UNIT DOSE* 17GM PACKET PO SCH (09:27)
[2021-01-17] MEDS: ASPIRIN 81 MG CHEW TABLET PO SCH (09:28)
[2021-01-17] MEDS: SIMVASTATIN 20 MG TAB PO SCH (09:28)
[2021-01-17] MEDS: FUROSEMIDE 40 MG TAB PO SCH (09:28)
[2021-01-17] MEDS: CYANOCOBALAMIN 500 MCG TAB PO SCH (09:28)
[2021-01-17] MEDS: OMEPRAZOLE 20 MG CAP PO SCH (09:28)
[2021-01-17] MEDS: SERTRALINE 100 MG TAB PO SCH (09:28)
--- NOTE | 2021-01-17 13:03 | IPNPDOC ---
Text Note Date of Service The patient was seen on 01/17/21. NOTE Subjective: -Pain is well controlled Objective: Vitals: please see below Constitutional: Awake and alert, in no apparent distress ENT: Sclera are clear. Mucosa is moist. Respiratory: Lungs CTA bilaterally. No respiratory distress. No use of accessory muscles. Cardiovascular: RRR, S1 and S2 are normal, no murmur Abdomen: Abdomen is soft, non distended, non tender, BS present. Extremities: No lower extremity edema bilaterally. Limited range of movement at the R hip. Neurologic: Cranial nerves appear intact, no focal neurological deficit. Limited range of movement at the R hip, limited by pain. Mental Status: A&O x3, normal affect Labs: Cr 1.31 na 133 K 4.4 WBC 9.5 hgb 9.8 platelets 254 Assessment: 80-year-old W with a history of congestive heart failure and hypertension who sustained a mechanical fall resulting in a closed right hip fracture who is POD#2 s/p R hip repair with cephalomedullary nail. R hip fracture: -POD#2 s/p R hip surgery s/p cephalomedullary nail placement -PT/OT per ortho recs, please refer to ortho operative note -Pain management going well with percocet 1 tab Q4HP for mod pain, 2tabs Q6HP for severe pain, tramadol 50Q6HP for mild pain and continue the morphine [id number] for breakthrough severe pain. -ASA 81 for DVT ppx per ortho -ARU screen # Acute on chronic HFpEF: Now euvolemic -Recent echo showing grade 2 diastolic dysfunction. -Resume home lasix 40mg PO daily -Monitor ins/outs. # Congestive nephropathy: Improved with diuresis -renal US was unremarkable without postobstructive pathology. -Avoid nephrotoxins. -Resume home lasix 40mg PO daily # Hypertension: - amlodipine 2.5 QHS # DVT prophylaxis: ASA 81 QD VS,Fishbone, I+O VS, Fishbone, I+O Laboratory Tests 01/17/21 04:46 Vital Signs Date Time Temp Pulse Resp B/P (MAP) Pulse Ox O2 Delivery O2 Flow Rate FiO2 01/17/21 07:08 97.7 93 18 124/67 (86) 92 Room Air 01/16/21 12:00 2.0 I&O- Last 24 Hours up to 6 AM 01/17/21 06:00 Intake Total 775 ml Output Total 375 ml Balance 400 ml KRISTINA FONSECA MD January 17, 2021 08:55
[2021-01-18 04:00] VITALS: BP 104/49
[2021-01-18 05:22] LABS: HEMATOCRIT 29.6 % (36.0-47.0); HEMOGLOBIN 9.5 g/dl (12.0-15.5); MEAN CORPUSCULAR HEMOGLOBIN 29.3 pg (27.0-33.0); MEAN CORPUSCULAR HGB CONC 32.1 g/dl (32.0-36.5); MEAN CORPUSCULAR VOLUME 91.4 fl (80.0-96.0); PLATELET COUNT, AUTOMATED 266 10^3/uL (150-450); RED BLOOD COUNT 3.24 10^6/uL (4.00-5.40); WHITE BLOOD COUNT 9.5 10^3/uL (4.0-10.0)
[2021-01-18] MEDS: HEPARIN SOD (PORCINE) 5000UNITS/ML 1ML VIAL/SYRINGE SC SCH (05:25)
[2021-01-18 05:38] LABS: CREATININE FOR GFR 1.24 MG/DL (0.55-1.30); GLOMERULAR FILTRATION RATE 44.2 (>32); POTASSIUM SERUM 4.4 MEQ/L (3.5-5.1)
[2021-01-18 05:39] LABS: CALCIUM LEVEL 9.6 MG/DL (8.8-10.2); MAGNESIUM LEVEL 2.3 MG/DL (1.8-2.4)
[2021-01-18 07:08] VITALS: BP 122/58
[2021-01-18] MEDS: MIRALAX *UNIT DOSE* 17GM PACKET PO SCH (09:00)
[2021-01-18] MEDS: SIMVASTATIN 20 MG TAB PO SCH (09:40)
[2021-01-18] MEDS: OMEPRAZOLE 20 MG CAP PO SCH (09:40)
[2021-01-18] MEDS: FUROSEMIDE 40 MG TAB PO SCH (09:40)
[2021-01-18] MEDS: CYANOCOBALAMIN 500 MCG TAB PO SCH (09:41)
[2021-01-18] MEDS: SERTRALINE 100 MG TAB PO SCH (09:41)
[2021-01-18] MEDS: PERCOCET 5MG/325MG TAB PO PRN (09:41)
[2021-01-18] MEDS: ASPIRIN 81 MG CHEW TABLET PO SCH (09:41)
[2021-01-18 12:00] VITALS: BP 100/52
[2021-01-18] MEDS ORDERED: ASPI81CH8 PO (12:38)
[2021-01-18] MEDS ORDERED: MIRA1POW3 PO (12:38)
[2021-01-18] MEDS ORDERED: TRAM50TA2 PO (12:38)
[2021-01-18] MEDS ORDERED: PERCOCET PO ×2 (12:38)
[2021-01-18] MEDS ORDERED: ACET1TAB55 PO (12:38)
--- NOTE | 2021-01-18 12:41 | IPNPDOC ---
Text Note Date of Service The patient was seen on 01/18/21. NOTE Subjective: -Pain is well controlled and is now awaiting ARU insurance approval, otherwise is doing well. Objective: Vitals: please see below Constitutional: Awake and alert, in no apparent distress ENT: Sclera are clear. Mucosa is moist. Respiratory: Lungs CTA bilaterally. No respiratory distress. No use of accessory muscles. Cardiovascular: RRR, S1 and S2 are normal, no murmur Abdomen: Abdomen is soft, non distended, non tender, BS present. Extremities: No lower extremity edema bilaterally. Limited range of movement at the R hip. Neurologic: Cranial nerves appear intact, no focal neurological deficit. Limited range of movement at the R hip, limited by pain. Mental Status: A&O x3, normal affect Labs: Reviewed. Stable Cr 1.24 Assessment: 80-year-old W with a history of congestive heart failure and hypertension who sustained a mechanical fall resulting in a closed right hip fracture who is POD#3 s/p R hip repair with cephalomedullary nail. R hip fracture: -POD#3 s/p R hip surgery s/p cephalomedullary nail placement -PT/OT per ortho recs, please refer to ortho operative note -Pain management going well with percocet 1 tab Q4HP for mod pain, 2tabs Q6HP for severe pain, tramadol 50Q6HP for mild pain and continue the morphine [id number] for breakthrough severe pain. -ASA 81 for DVT ppx per ortho -ARU screen ongoing, pending insurance approval for discharge to the ARU # Acute on chronic HFpEF: Now euvolemic -Recent echo showing grade 2 diastolic dysfunction. -Continue home lasix 40mg PO daily -Monitor ins/outs. # Congestive nephropathy: Improved with diuresis -renal US was unremarkable without postobstructive pathology. -Avoid nephrotoxins. -continue home lasix 40mg PO daily # Hypertension: - amlodipine 2.5 QHS # DVT prophylaxis: ASA 81 QD VS,Fishbone, I+O VS, Fishbone, I+O Laboratory Tests 01/18/21 04:37 Vital Signs Date Time Temp Pulse Resp B/P (MAP) Pulse Ox O2 Delivery O2 Flow Rate FiO2 01/18/21 07:08 97.6 18 122/58 (79) 92 01/18/21 04:00 80 Room Air 01/16/21 12:00 2.0 I&O- Last 24 Hours up to 6 AM 01/18/21 06:00 Intake Total 900 ml Output Total 100 ml Balance 800 ml KRISTINA FONSECA MD January 18, 2021 08:49
--- NOTE | 2021-01-18 12:41 | DS.PDOC ---
Discharge Summary General Date of Admission January 13, 2021 at 11:25 Date of Discharge 01/18/2021 Attending Physician: KRISTINA FONSECA MD Discharge Summary PROCEDURES PERFORMED DURING STAY: 01/15/2021 : Right hip cephalomedullary nail, short by Dr. Morocho ADMITTING DIAGNOSES: closed R hip fracture DISCHARGE DIAGNOSES: Right intertrochanteric hip fracture, closed. Acute on chronic congestive heart failure with Grade 2 LV diastolic dysfunction (pseudonormal LV filling pattern). As per her recent echo done in October 2020 Hypertension. CRISTIANA 2/2 congestive nephropathy COMPLICATIONS/CHIEF COMPLAINT: Closed R Hip Fracture. HISTORY OF PRESENT ILLNESS: 80-year-old W with a past medical history of congestive heart failure, hypertension who presented after she had a mechanical fall while walking on her back porch when she slipped and fell directly on her right hip. Soon after she experienced excruciating pain localized at the right hip. She did not hit her head. She denied any loss of consciousness, aura, confusion, vision changes, palpitations, sweating or dizziness during and after the episode. HOSPITAL COURSE: In the ED, she was hemodynamically stable and CT head was negative, CT cervical spine negative. Her X-ray of the R hip showed an intertrochanteric fracture. Orthopedics told, was consulted and she was admitted to medicine for medical optimization with plan for surgery. Her course was c/b CHF exacerbation for which she received some IV loop diuresis with resolution of mid hypoxemia that was present at presentation as well as LE edema, as well as resolution of a congestive nephropathy that was also present at admission. She finally had R hip surgery on 01/15 that went well. Her R hip pain improved tremendously and she began PT/OT and was deemed appropriate for ARU admission for intensive rehabilitation with anticipation for eventual discharge home. DISCHARGE MEDICATIONS: Please see below. ALLERGIES: Please see below. PHYSICAL EXAMINATION ON DISCHARGE: VITAL SIGNS: Please see below. Constitutional: Awake and alert, in no apparent distress ENT: Sclera are clear. Mucosa is moist. Respiratory: Lungs CTA bilaterally. No respiratory distress. No use of accessory muscles. Cardiovascular: RRR, S1 and S2 are normal, no murmur Abdomen: Abdomen is soft, non distended, non tender, BS present. Extremities: No lower extremity edema bilaterally. Limited range of movement at the R hip. Neurologic: Cranial nerves appear intact, no focal neurological deficit. Limited range of movement at the R hip, limited by pain. Mental Status: A&O x3, normal affect LABORATORY DATA: Please see below. IMAGING: -Hip AP and lateral x-ray done on 01/12/2021 shows a right intertrochanteric femur fracture. -Femur x-ray done on 01/12/2021 shows no acute fracture. -X-ray tibia and fibula done on 01/12/2021 shows no acute fracture or malalignment -Chest x-ray done on 01/12/2021 shows cardiomegaly with no acute findings. PROGNOSIS: Good ACTIVITY: As tolerated DIET: 2g sodium DISCHARGE PLAN: ARU DISPOSITION: ARU DISCHARGE INSTRUCTIONS: ARU discharge ITEMS TO FOLLOWUP ON ON OUTPATIENT: R hip fracture, f/u with orthopedics DISCHARGE CONDITION: Stable TIME SPENT ON DISCHARGE: 45 minutes. Vital Signs/I&Os Vital Signs Date Time Temp Pulse Resp B/P (MAP) Pulse Ox O2 Delivery O2 Flow Rate FiO2 01/18/21 07:08 97.6 18 122/58 (79) 92 01/18/21 04:00 80 Room Air 01/16/21 12:00 2.0 I&O- Last 24 Hours up to 6 AM 01/18/21 06:00 Intake Total 900 ml Output Total 100 ml Balance 800 ml Laboratory Data Labs 24H Laboratory Tests 2 01/18/21 04:37: Nucleated Red Blood Cells % (auto) 0.0, Anion Gap 7L, Glomerular Filtration Rate 44.2, Calcium Level 9.6, Magnesium Level 2.3 CBC/BMP Laboratory Tests 01/18/21 04:37 Microbiology Microbiology 01/12/21 Respiratory Virus Panel (PCR) ([facility]) - Final, Complete Human Rhinovirus/Enterovirus Discharge Medications Scheduled Amlodipine Besylate (Amlodipine Besylate) 2.5 Mg Tablet, 2.5 MG PO QHS, (Reported) Aspirin (Children's Aspirin) 81 Mg Tab.chew, 81 MG PO DAILY Cyanocobalamin (Vitamin B-12) (Vitamin B-12) 500 Mcg Tablet, 500 MCG PO DAILY, (Reported) Docusate Sodium (Dok) 100 Mg Tablet, 100 MG PO BID, (Reported) Ergocalciferol (Vitamin D2) (Vitamin D2) 50,000 Units Cap, 50,000 UNITS PO QWEEK, (Reported) SATURDAY Ferrous Sulfate, Dried (Slow Release Iron) 160 Mg Tablet.er, 160 MG PO BID, (Reported) Furosemide (Furosemide) 40 Mg Tablet, 40 MG PO DAILY, (Reported) Lisinopril (Lisinopril) 10 Mg Tablet, 10 MG PO DAILY, (Reported) Omeprazole (Omeprazole) 20 Mg Capsule.dr, 20 MG PO DAILY, (Reported) Polyethylene Glycol 3350 (Miralax) 17 Gm Powd.pack, 1 PKT PO DAILY Potassium Chloride (Potassium Chloride) 20 Meq Tablet.er, 20 MEQ PO DAILY, (Reported) Sertraline Hcl (Zoloft) 100 Mg Tablet, 100 MG PO DAILY, (Reported) Simvastatin (Simvastatin) 20 Mg Tablet, 20 MG PO DAILY, (Reported) Scheduled PRN Acetaminophen (Acetaminophen) 325 Mg Tablet, 650 MG PO Q4H PRN for MILD PAIN OR FEVER Oxycodone/Acetaminophen (Oxycodone-Acetaminophen 5-325) 1 Each Tablet, 1 TAB PO Q4HP PRN for MODERATE PAIN (PS 5-7) Oxycodone/Acetaminophen (Oxycodone-Acetaminophen 5-325) 1 Each Tablet, 2 TAB PO Q6HP PRN for SEVERE PAIN (PS 8-10) Tramadol HCl (Tramadol HCl) 50 Mg Tablet, 50 MG PO Q6HP PRN for mild pain Allergies Coded Allergies: No Known Allergies (Unverified , 09/12/20) KRISTINA FONSECA MD January 18, 2021 09:03
== END 2021-01-18 15:20 | DRG 480 ==
LOC: M ED 18:31 → M ED INP 18:32 → M MS5PR 01-13 01:25 → OBSVTOIN 01-13 11:25 → M PCU 01-14 14:00
PROVIDERS: ADMIT Internal Medicine; ATTEND Internal Medicine
PROC: 0QS636Z Reposition Right Upper Femur with Intramedullary Internal Fixation Device, Percutaneous Approach (ICD-10-PCS; principal; 2021-01-15 08:30)
DX: S72.141A Displaced intertrochanteric fracture of right femur, initial encounter for closed fracture (principal); I50.33 Acute on chronic diastolic (congestive) heart failure; N17.9 Acute kidney failure, unspecified; W01.0XXA Fall on same level from slipping, tripping and stumbling without subsequent striking against object, initial encounter; Y92.89 Other specified places as the place of occurrence of the external cause; I11.0 Hypertensive heart disease with heart failure; Z79.899 Other long term (current) drug therapy; Z20.822 Contact with and (suspected) exposure to COVID-19; N28.9 Disorder of kidney and ureter, unspecified; E87.70 Fluid overload, unspecified; R09.02 Hypoxemia

== ENCOUNTER 2021-01-18 12:41 | Inpatient (IN) | payer MEDICARE ==
[~2021-01-18] VITALS: Ht 157.5 cm; Wt 65.0 kg
[~2021-01-18 12:41] MED LIST changes: +ACET1TAB55 PO; +AMLO2.5T3 PO; +ASPI81CH8 PO; +MIRA1POW3 PO; +PERCOCET PO; +POTA1TAB14 PO; +TRAM50TA2 PO; +VITA500T41 PO
[2021-01-18] MEDS ORDERED: BISACODYL 10 MG SUPP PR PRN (13:30)
--- NOTE | 2021-01-18 13:35 | HPEPDOC ---
Nursing Unit Coordinator Note DATE OF ADMISSION: 01-18-21 DATE OF SERVICE: 01-19-21 TIME OF ADMISSION: Please refer to physician's admission order. SOURCE OF ADMISSION INFORMATION: [facility] record and patient CHIEF COMPLAINT: right hip fracture HISTORY OF PRESENT ILLNESS: 80F pmh chronic diastolic CHF, HTN who fell at home without head trauma or LOC and presented to [facility] ED on 01-13-21 complaining of right leg weakness and pain. Hip Xrays revealed a right intertrochanteric femur fracture for which she was evaluated by orthopedics and underwent an RAUL on 01-15-[address] Marcum. She developed post-op anemia, CRISTIANA, acute diastolic CHF exacerbation, and hyponatremia . She was diuresed and placed on a fluid restriction. She also was found to have HUMAN RHINOVIRUS/ENTEROVIRUS. She had mobility and ADL impairments in therapy and deemed medically appropriate for discharge to ARU on 01-18-21. On initial eval patient denies having any respiratory symptoms and states her pain is reasonably controlled. She is concerned about her heart ebcuase she was due for a catheterization this month which now has to be postponed because of her hip fracture. She denies chest pain or palpitations REVIEW OF SYSTEMS: The following is a completed review of systems and has been reviewed. Review of systems otherwise unremarkable. PAIN: Patient self reports right hip pain EYES: No recent vision changes EARS, NOSE, & THROAT: No throat pain, or dysphagia, or rhinorrhea CARDIOVASCULAR: Denies chest pain or palpitations PULMONARY: Denies shortness of breath GASTROINTESTINAL: Denies constipation/diarrhea GENITOURINARY: denies dysuria MUSCULOSKELETAL:s/p right hip fracture NEUROLOGICAL:denies paresthesias HEMATOLOGICAL: denies easy bruising SKIN: right hip incision PSYCHIATRIC: Unremarkable All other review of systems found to be negative. PAST MEDICAL HISTORY: as per HPI PAST SURGICAL HISTORY: EGD/colonoscopy ALLERGIES: Please see below. MEDICATIONS: Please see below. FAMILY HISTORY: Cardiac, DM SOCIAL HISTORY: No smoking/occasional etoh/no illicit drugs DIET: low sodium, fluid restrict PHYSICAL EXAMINATION: VITAL SIGNS: Please see below. GENERAL: Pleasant and cooperative. No acute distress. HEENT: PERRL. Extraocular movements intact. Clear conjunctiva, +dentures CARDIOVASCULAR: Regular rate and rhythm. No murmurs, rubs, or gallops LUNGS: Clear to auscultation bilaterally. No wheezes. No rhonchi ABDOMEN: Soft, nontender, nondistended. Positive bowel sounds. Normal active bowel sounds NEUROLOGICAL: Alert and oriented times three. Cranial nerves II through XII grossly intact. Sensation grossly intact EXTREMITIES: 5\5 strength bilateral upper extremities. 5/5 right ankel DF and EHL, (>3/5 hip flexion and knee extension- limited however due to recent surgery) extremity. 5/5 strength in left lower extremity. SKIN: right hip paige-incision without ecchymosis or induration LABORATORY DATA: Please see below. IMAGING: Imaging documentation personally reviewed by record FUNCTIONAL STATUS: Premorbid: Mod-Independent with all activities of daily life as well as mobility On Admission: contact guard-min assist for bed mobility, functional transfers, ambulation, dressing, toileting, bathing GOALS: Mod-I bed mobility, functional transfers, ambulation, dressing, toile ting, bathing ASSESSMENT:80-year-old F with past medical history of HTn and CHF who presents status post fall with right hip fracture s/p ORIF PLAN: 1. Rehab- PT/OT advance mobility and ADls, strengthen/stretch/maintain ROM all 4limbs 2. Ortho- s/p right hip orif on 01/15/21- WBAT, on ASA 81mg daily for DVT ppx -f/u with Dr. Marcum 3. CArdiac- hx of HTN c/u BP meds -chronic diastolic CHF daily weights, fluid restrict, lasix -hx of CAD? patient on ASA for DVT ppx, will need to f/u with pattern maker programer to reschedule cath 4. Resp- monitor for infection +rhinovirus/enterovirus on precautions, asymptomatic 5. 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 DVT ppx- ASA 81mg daily per orthor recs, TEDs 7. GI ppx- protonix 8. Psych- zoloft 9. Pain- tylneol and oxycodone 10. Dipspo- TBD POST ADMISSION PHYSICIAN EVALUATION: Medical and functional status: Description of medical status, medical assessme nt: As above. Rehabilitation diagnosis and current and prior cold morbid medical conditions as above. Risk of complications and plans to mitigate them as above. Description of functional status current status is as above. Prior status as above. Status compared to preadmission: There are no clinically significant differences between the patient's current status and the information described on the preadmission screening document. Treatment plan anticipated: Treatment plan is as described above. Required disciplines including physical therapy, occupational therapy, others as noted above. Intensity of services: 3 hours a day, 6 days a week. Special considerations: There are no specific special or safety considerations that would likely preclude immediate implementation of an intensive re habilitation program or subsequently influence the plan of care. ATTESTATION: Considering all the information above, it is my best judgment that this patient requires intensive rehabilitation therapy as described above and an inpatient hospital environment due to the complexity of nursing, medical, and rehabilitation needs required by the patient. Furthermore, this patient can tam sonably be expected to participate in an benefit from an inpatient rehabilitation stay with an interdisciplinary team approach to the delivery of rehabilitation care under the direction and supervision of rehabilitation physician. PROGNOSIS: excellent ESTIMATED LENGTH OF STAY:10-14 days. PROJECTED DISCHARGE DESTINATION: Home with family support and any durable medical equipment required to increase functional safety and mobility TIME SPENT COUNSELING AND COORDINATING INITIAL CARE: Greater than 70 minutes. Vital Signs Vital Signs Date Time Temp Pulse Resp B/P (MAP) Pulse Ox O2 Delivery O2 Flow Rate FiO2 01/18/21 15:20 97.4 68 18 116/84 (95) 97 Room Air Home Medications Scheduled Amlodipine Besylate (Amlodipine Besylate) 2.5 Mg Tablet, 2.5 MG PO QHS, (Reported) Aspirin (Children's Aspirin) 81 Mg Tab.chew, 81 MG PO DAILY Cyanocobalamin (Vitamin B-12) (Vitamin B-12) 500 Mcg Tablet, 500 MCG PO DAILY, (Reported) Docusate Sodium (Dok) 100 Mg Tablet, 100 MG PO BID, (Reported) Ergocalciferol (Vitamin D2) (Vitamin D2) 50,000 Units Cap, 50,000 UNITS PO QWEEK, (Reported) SATURDAY Ferrous Sulfate, Dried (Slow Release Iron) 160 Mg Tablet.er, 160 MG PO BID, (Reported) Furosemide (Furosemide) 40 Mg Tablet, 40 MG PO DAILY, (Reported) Lisinopril (Lisinopril) 10 Mg Tablet, 10 MG PO DAILY, (Reported) Omeprazole (Omeprazole) 20 Mg Capsule.dr, 20 MG PO DAILY, (Reported) Polyethylene Glycol 3350 (Miralax) 17 Gm Powd.pack, 1 PKT PO DAILY Potassium Chloride (Potassium Chloride) 20 Meq Tablet.er, 20 MEQ PO DAILY, (Reported) Sertraline Hcl (Zoloft) 100 Mg Tablet, 100 MG PO DAILY, (Reported) Simvastatin (Simvastatin) 20 Mg Tablet, 20 MG PO DAILY, (Reported) Scheduled PRN Acetaminophen (Acetaminophen) 325 Mg Tablet, 650 MG PO Q4H PRN for MILD PAIN OR FEVER Oxycodone/Acetaminophen (Oxycodone-Acetaminophen 5-325) 1 Each Tablet, 1 TAB PO Q4HP PRN for MODERATE PAIN (PS 5-7) Oxycodone/Acetaminophen (Oxycodone-Acetaminophen 5-325) 1 Each Tablet, 2 TAB PO Q6HP PRN for SEVERE PAIN (PS 8-10) Tramadol HCl (Tramadol HCl) 50 Mg Tablet, 50 MG PO Q6HP PRN for mild pain Allergies Coded Allergies: No Known Allergies (Unverified , 09/12/20) A-FIB/CHADSVASC A-FIB History Current/History of A-Fib/PAF?: No Current PO Anticoag Therapy: No ALEXA KIRKPATRICK MD January 18, 2021 13:35
[2021-01-18 15:20] VITALS: BP 116/84
[2021-01-18] MEDS: REMEDY PHYTOPLEX Z-GUARD PASTE 113GM TUBE (FROM STOREROOM PRODUCT) TOP SCH ×2 (16:00→21:00)
[2021-01-18] MEDS: ACETAMINOPHEN 500 MG TAB PO SCH ×2 (16:00→21:37)
[2021-01-18] MEDS: oxyCODONE 5MG TAB PO PRN (18:47)
[2021-01-18] MEDS ORDERED: MAGIC MOUTHWASH SUSPENSION BTL SSP PRN (19:55)
[2021-01-18 20:00] VITALS: BP 127/59
[2021-01-18] MEDS: SENNA 8.6 MG TAB (SENOKOT) PO SCH (21:00)
[2021-01-18] MEDS: DOCUSATE SODIUM 100MG CAPSULE PO SCH (21:00)
[2021-01-18] MEDS: HEPARIN SOD (PORCINE) 5000UNITS/ML 1ML VIAL/SYRINGE SQ SCH (21:37)
[2021-01-18] MEDS: NYSTATIN 500,000 U/5 ML SUSP UDC SS SCH (21:37)
[2021-01-19 05:12] VITALS: BP 132/60
[2021-01-19 08:08] LABS: BASO # 0.1 10^3/uL (0.0-0.2); BASO % 0.8 % (0.0-1.0); EOS # 0.4 10^3/uL (0.0-0.5); HEMATOCRIT 29.9 % (36.0-47.0); HEMOGLOBIN 9.6 g/dl (12.0-15.5); LYMPH # 2.1 10^3/uL (1.5-5.0); LYMPH % 23.4 % (24.0-44.0); MEAN CORPUSCULAR HEMOGLOBIN 29.7 pg (27.0-33.0); MEAN CORPUSCULAR HGB CONC 32.1 g/dl (32.0-36.5); MEAN CORPUSCULAR VOLUME 92.6 fl (80.0-96.0); MONO # 0.8 10^3/uL (0.0-0.8); MONO % 8.7 % (2.0-8.0); NEUTROPHILS # 5.5 10^3/uL (1.5-8.5); NEUTROPHILS % 62.6 % (36.0-66.0); PLATELET COUNT, AUTOMATED 291 10^3/uL (150-450); RED BLOOD COUNT 3.23 10^6/uL (4.00-5.40); WHITE BLOOD COUNT 8.8 10^3/uL (4.0-10.0)
[2021-01-19 08:32] LABS: BILIRUBIN,TOTAL 0.5 MG/DL (0.2-1.0); CALCIUM LEVEL 9.4 MG/DL (8.8-10.2); CREATININE FOR GFR 0.99 MG/DL (0.55-1.30); GLOMERULAR FILTRATION RATE 57.3 (>32); POTASSIUM SERUM 4.5 MEQ/L (3.5-5.1); TOTAL PROTEIN 6.9 GM/DL (6.4-8.2)
[2021-01-19] MEDS: REMEDY PHYTOPLEX Z-GUARD PASTE 113GM TUBE (FROM STOREROOM PRODUCT) TOP SCH ×3 (09:00→20:22)
[2021-01-19] MEDS: ACETAMINOPHEN 500 MG TAB PO SCH ×4 (09:00→20:20)
[2021-01-19] MEDS: HEPARIN SOD (PORCINE) 5000UNITS/ML 1ML VIAL/SYRINGE SQ SCH ×2 (09:08→20:20)
[2021-01-19] MEDS: NYSTATIN 500,000 U/5 ML SUSP UDC SS SCH ×3 (09:09→20:21)
[2021-01-19] MEDS: FUROSEMIDE 40 MG TAB PO SCH (09:09)
[2021-01-19] MEDS: OMEPRAZOLE 20 MG CAP PO SCH (09:09)
[2021-01-19] MEDS: CYANOCOBALAMIN 500 MCG TAB PO SCH (09:09)
[2021-01-19] MEDS: SERTRALINE 100 MG TAB PO SCH (09:09)
[2021-01-19] MEDS: FERROUS GLUCONATE 324 MG TAB PO SCH (09:09)
[2021-01-19] MEDS: ASPIRIN 81MG ENTERIC TABLET PO SCH (09:09)
[2021-01-19] MEDS: DOCUSATE SODIUM 100MG CAPSULE PO SCH ×2 (09:09→20:21)
[2021-01-19] MEDS: SIMVASTATIN 20 MG TAB PO SCH (09:09)
[2021-01-19] MEDS: MIRALAX *UNIT DOSE* 17GM PACKET PO PRN (09:10)
[2021-01-19 14:00] VITALS: BP 142/62
--- NOTE | 2021-01-19 16:59 | IPNPDOC ---
Text Note Date of Service The patient was seen on 01/19/21. NOTE Subjective: -Pain is well controlled and was discharged ARU yesterday and rehab is going well. Objective: Vitals: please see below Constitutional: Awake and alert, in no apparent distress ENT: Sclera are clear. Mucosa is moist. Respiratory: Lungs CTA bilaterally. No respiratory distress. No use of accessory muscles. Cardiovascular: RRR, S1 and S2 are normal, no murmur Abdomen: Abdomen is soft, non distended, non tender, BS present. Extremities: No lower extremity edema bilaterally. Limited range of movement at the R hip. Neurologic: Cranial nerves appear intact, no focal neurological deficit. Limited range of movement at the R hip. Mental Status: A&O x3, normal affect Labs: Reviewed. Stable Assessment: 80-year-old W with a history of congestive heart failure and hypertension who sustained a mechanical fall resulting in a closed right hip fracture who is POD#3 s/p R hip repair with cephalomedullary nail. R hip fracture: -POD#4 s/p R hip surgery s/p cephalomedullary nail placement -PT/OT per ortho and PM&R -Pain management going well with percocet 1 tab Q4HP for mod pain, 2tabs Q6HP for severe pain, tramadol 50Q6HP for mild pain. -ASA 81 for DVT ppx per ortho # Acute on chronic HFpEF: Now euvolemic -Recent echo showing grade 2 diastolic dysfunction. -Continue home lasix 40mg PO daily -Monitor ins/outs. # Congestive nephropathy: Improved with diuresis -renal US was unremarkable without postobstructive pathology. -Avoid nephrotoxins. -continue home lasix 40mg PO daily # Hypertension: - amlodipine 2.5 QHS # DVT prophylaxis: ASA 81 QD VS,Fishbone, I+O VS, Fishbone, I+O Laboratory Tests 01/19/21 07:32 Vital Signs Date Time Temp Pulse Resp B/P (MAP) Pulse Ox O2 Delivery O2 Flow Rate FiO2 01/19/21 05:12 97.0 62 18 132/60 (84) 98 Room Air I&O- Last 24 Hours up to 6 AM 01/19/21 06:00 Intake Total 150 ml Output Total 1050 ml Balance -900 ml KRISTINA FONSECA MD January 19, 2021 09:47
[2021-01-19 20:00] VITALS: BP 114/63
[2021-01-19] MEDS: SENNA 8.6 MG TAB (SENOKOT) PO SCH (20:21)
[2021-01-20 06:00] VITALS: BP 143/63
[2021-01-20 07:05] LABS: BASO # 0.1 10^3/uL (0.0-0.2); BASO % 0.8 % (0.0-1.0); EOS # 0.3 10^3/uL (0.0-0.5); EOS % 3.8 % (0.0-3.0); HEMATOCRIT 31.1 % (36.0-47.0); HEMOGLOBIN 10.1 g/dl (12.0-15.5); LYMPH # 1.9 10^3/uL (1.5-5.0); MEAN CORPUSCULAR HEMOGLOBIN 29.7 pg (27.0-33.0); MEAN CORPUSCULAR HGB CONC 32.5 g/dl (32.0-36.5); MEAN CORPUSCULAR VOLUME 91.5 fl (80.0-96.0); MONO # 0.8 10^3/uL (0.0-0.8); MONO % 9.2 % (2.0-8.0); NEUTROPHILS # 5.3 10^3/uL (1.5-8.5); NEUTROPHILS % 62.5 % (36.0-66.0); PLATELET COUNT, AUTOMATED 326 10^3/uL (150-450); WHITE BLOOD COUNT 8.4 10^3/uL (4.0-10.0)
[2021-01-20 07:25] LABS: CALCIUM LEVEL 9.4 MG/DL (8.8-10.2); CREATININE FOR GFR 0.99 MG/DL (0.55-1.30); GLOMERULAR FILTRATION RATE 57.3 (>32); POTASSIUM SERUM 4.4 MEQ/L (3.5-5.1)
[2021-01-20] MEDS: oxyCODONE 5MG TAB PO PRN (07:26)
[2021-01-20] MEDS: REMEDY PHYTOPLEX Z-GUARD PASTE 113GM TUBE (FROM STOREROOM PRODUCT) TOP SCH ×3 (09:00→20:22)
[2021-01-20] MEDS: FUROSEMIDE 40 MG TAB PO SCH (09:09)
[2021-01-20] MEDS: CYANOCOBALAMIN 500 MCG TAB PO SCH (09:09)
[2021-01-20] MEDS: HEPARIN SOD (PORCINE) 5000UNITS/ML 1ML VIAL/SYRINGE SQ SCH (09:09)
[2021-01-20] MEDS: SIMVASTATIN 20 MG TAB PO SCH (09:09)
[2021-01-20] MEDS: FERROUS GLUCONATE 324 MG TAB PO SCH (09:09)
[2021-01-20] MEDS: ASPIRIN 81MG ENTERIC TABLET PO SCH (09:09)
[2021-01-20] MEDS: OMEPRAZOLE 20 MG CAP PO SCH (09:09)
[2021-01-20] MEDS: DOCUSATE SODIUM 100MG CAPSULE PO SCH ×2 (09:09→20:21)
[2021-01-20] MEDS: SERTRALINE 100 MG TAB PO SCH (09:09)
[2021-01-20] MEDS: ACETAMINOPHEN 500 MG TAB PO SCH ×3 (09:10→20:21)
--- NOTE | 2021-01-20 10:05 | IPNPDOC ---
PM&R Progress Note DATE OF SERVICE: January 20, 2021 [employer] Progress Note SUbjective: Patient reporting at home she has urinary retention, but that she believes it is due to what she thinks it uterine prolapse. She says at home she will push down on her bladder which helps. She denies lower abdominal pain, dysuria, or fevers. REVIEW OF SYSTEMS: The following is a completed review of systems and has been reviewed. Review of systems otherwise unremarkable. PAIN: Patient self reports right hip pain EYES: No recent vision changes EARS, NOSE, & THROAT: No throat pain, or dysphagia, or rhinorrhea CARDIOVASCULAR: Denies chest pain or palpitations PULMONARY: Denies shortness of breath GASTROINTESTINAL: Denies constipation/diarrhea GENITOURINARY: denies dysuria, +chronic retention MUSCULOSKELETAL:s/p right hip fracture NEUROLOGICAL:denies paresthesias HEMATOLOGICAL: denies easy bruising SKIN: right hip incision PSYCHIATRIC: Unremarkable All other review of systems found to be negative. PHYSICAL EXAMINATION: VITAL SIGNS: Please see below. GENERAL: Pleasant and cooperative. No acute distress. HEENT: PERRL. Extraocular movements intact. Clear conjunctiva, +dentures CARDIOVASCULAR: Regular rate and rhythm. No murmurs, rubs, or gallops LUNGS: Clear to auscultation bilaterally. No wheezes. No rhonchi ABDOMEN: Soft, nontender, nondistended. Positive bowel sounds. Normal active bowel sounds, no suprapubic tenderness NEUROLOGICAL: Alert and oriented times three. Cranial nerves II through XII grossly intact. Sensation grossly intact EXTREMITIES: 5\5 strength bilateral upper extremities. 5/5 right ankel DF and EHL, (>3/5 hip flexion and knee extension- limited however due to recent surgery) extremity. 5/5 strength in left lower extremity. SKIN: right hip paige-incision without ecchymosis or induration LABORATORY DATA: Please see below. IMAGING: Imaging documentation personally reviewed by record ASSESSMENT:80-year-old F with past medical history of HTn and CHF who presents status post fall with right hip fracture s/p ORIF PLAN: 1. Rehab- PT/OT advance mobility and ADls, strengthen/stretch/maintain ROM all 4limbs- ambulating with RW 2. Ortho- s/p right hip orif on 01/15/21- WBAT, on ASA 81mg daily for DVT ppx -f/u with Dr. Marcum 3. CArdiac- hx of HTN c/u BP meds -chronic diastolic CHF daily weights, fluid restrict, lasix -hx of CAD? patient on ASA for DVT ppx, will need to f/u with county director welfare to reschedule cath 4. Resp- monitor for infection +rhinovirus/enterovirus on precautions, asymptomatic 5. 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 DVT ppx- ASA 81mg daily per orthor recs, TEDs 7. GI ppx- protonix 8. Psych- zoloft 9. Pain- tylneol and oxycodone 10. - urinary retention, per patient is chronic and may be related to uterine prolapse, c/u to monitor and check PVRs 11. Dispo- TBD Allergies Coded Allergies: No Known Allergies (Unverified , 09/12/20) Vital Signs Vital Signs Date Time Temp Pulse Resp B/P (MAP) Pulse Ox O2 Delivery O2 Flow Rate FiO2 01/20/21 07:26 18 01/20/21 06:00 96.7 73 143/63 (89) 96 Room Air Laboratory Data CBC/BMP Laboratory Tests 01/20/21 06:44 Labs 24H Laboratory Tests 2 01/20/21 06:44: Immature Granulocyte % (Auto) 0.7, Neutrophils (%) (Auto) 62.5, Lymphocytes (%) (Auto) 23.0L, Monocytes (%) (Auto) 9.2H, Eosinophils (%) (Auto) 3.8H, Basophils (%) (Auto) 0.8, Neutrophils # (Auto) 5.3, Lymphocytes # (Auto) 1.9, Monocytes # (Auto) 0.8, Eosinophils # (Auto) 0.3, Basophils # (Auto) 0.1, Nucleated Red Blood Cells % (auto) 0.0, Anion Gap 5L, Glomerular Filtration Rate 57.3, Calcium Level 9.4 Current Medications Current Medications Current Medications Medications (Trade) Dose Ordered Sig/Lt Route PRN Reason Start Time Stop Time Status Last Admin Dose Admin Acetaminophen (Tylenol Tab) 1,000 mg TID PO 01/18/21 16:00 01/20/21 09:10 Amlodipine Besylate (Norvasc) 2.5 mg QHS PO 01/18/21 21:00 01/19/21 20:20 Aspirin (Ecotrin) 81 mg DAILY PO 01/19/21 09:00 01/20/21 09:09 Bisacodyl (Dulcolax Suppository) 10 mg DAILYPRN PRN [place] CONSTIPATION 01/18/21 13:30 Cyanocobalamin (Vitamin B12) 500 mcg DAILY PO 01/19/21 09:00 01/20/21 09:09 Docusate Sodium (Colace) 100 mg BID PO 01/18/21 21:00 01/20/21 09:09 Ferrous Gluconate (Fergon) 324 mg DAILY PO 01/19/21 09:00 01/20/21 09:09 Furosemide (Lasix) 40 mg DAILY PO 01/19/21 09:00 01/20/21 09:09 Heparin Sodium (Porcine) (Heparin) 5,000 units Q12H SQ 01/18/21 21:00 01/20/21 09:09 Lidocaine/ Diphenhydr/Alum/ Mg/Simeth (Magic Mouthwash) 5ML TIDP PRN SSP DISCOMFORT 01/18/21 19:55 Nystatin (Mycostatin) 5 ml TID SS 01/18/21 21:00 01/19/21 20:21 Omeprazole (PriLOSEC) 20 mg DAILY PO 01/19/21 09:00 01/20/21 09:09 Oxycodone HCl (Roxicodone, Oxyir) 5 mg Q4HP PRN PO PAIN 01/18/21 13:30 01/20/21 07:26 Polyethylene Glycol (Miralax) 1 pkt DAILY PRN PO CONSTIPATION 01/18/21 13:30 01/19/21 09:10 Senna (Senokot) 1 tab QHS PO 01/18/21 21:00 Sertraline HCl (Zoloft) 100 mg DAILY PO 01/19/21 09:00 01/20/21 09:09 Simvastatin (Zocor) 20 mg DAILY PO 01/19/21 09:00 01/20/21 09:09 ALEXA KIRKPATRICK MD January 20, 2021 10:05
[2021-01-20] MEDS: NYSTATIN 500,000 U/5 ML SUSP UDC SS SCH ×3 (11:15→20:21)
[2021-01-20 14:00] VITALS: BP 121/68
[2021-01-20 20:15] VITALS: BP 134/58
[2021-01-20] MEDS: SENNA 8.6 MG TAB (SENOKOT) PO SCH (20:20)
[2021-01-21] MEDS: oxyCODONE 5MG TAB PO PRN ×2 (05:46→22:55)
[2021-01-21 05:52] VITALS: BP 138/69
[2021-01-21 05:53] VITALS: BP 145/83
[2021-01-21 06:44] VITALS: BP 138/69
[2021-01-21] MEDS: DOCUSATE SODIUM 100MG CAPSULE PO SCH ×2 (08:36→20:20)
[2021-01-21] MEDS: ACETAMINOPHEN 500 MG TAB PO SCH ×3 (08:36→20:20)
[2021-01-21] MEDS: FERROUS GLUCONATE 324 MG TAB PO SCH (08:36)
[2021-01-21] MEDS: SERTRALINE 100 MG TAB PO SCH (08:37)
[2021-01-21] MEDS: SIMVASTATIN 20 MG TAB PO SCH (08:37)
[2021-01-21] MEDS: OMEPRAZOLE 20 MG CAP PO SCH (08:37)
[2021-01-21] MEDS: REMEDY PHYTOPLEX Z-GUARD PASTE 113GM TUBE (FROM STOREROOM PRODUCT) TOP SCH ×3 (08:37→20:22)
[2021-01-21] MEDS: ASPIRIN 81MG ENTERIC TABLET PO SCH (08:37)
[2021-01-21] MEDS: NYSTATIN 500,000 U/5 ML SUSP UDC SS SCH ×3 (08:37→20:19)
[2021-01-21] MEDS: CYANOCOBALAMIN 500 MCG TAB PO SCH (08:37)
[2021-01-21] MEDS: FUROSEMIDE 40 MG TAB PO SCH (08:37)
[2021-01-21 14:00] VITALS: BP 130/75
[2021-01-21 20:15] VITALS: BP 126/71
[2021-01-21] MEDS: SENNA 8.6 MG TAB (SENOKOT) PO SCH (20:20)
[2021-01-22 06:30] VITALS: BP 147/79
[2021-01-22] MEDS: ASPIRIN 81MG ENTERIC TABLET PO SCH (08:08)
[2021-01-22] MEDS: NYSTATIN 500,000 U/5 ML SUSP UDC SS SCH ×3 (08:08→20:36)
[2021-01-22] MEDS: CYANOCOBALAMIN 500 MCG TAB PO SCH (08:08)
[2021-01-22] MEDS: SIMVASTATIN 20 MG TAB PO SCH (08:08)
[2021-01-22] MEDS: OMEPRAZOLE 20 MG CAP PO SCH (08:08)
[2021-01-22] MEDS: DOCUSATE SODIUM 100MG CAPSULE PO SCH ×2 (08:08→20:38)
[2021-01-22] MEDS: SERTRALINE 100 MG TAB PO SCH (08:08)
[2021-01-22] MEDS: FERROUS GLUCONATE 324 MG TAB PO SCH (08:08)
[2021-01-22] MEDS: REMEDY PHYTOPLEX Z-GUARD PASTE 113GM TUBE (FROM STOREROOM PRODUCT) TOP SCH ×3 (08:09→20:38)
[2021-01-22] MEDS: ACETAMINOPHEN 500 MG TAB PO SCH ×3 (08:09→20:37)
[2021-01-22 08:11] VITALS: BP 137/68
[2021-01-22] MEDS: FUROSEMIDE 40 MG TAB PO SCH (08:11)
[2021-01-22 14:00] VITALS: BP 119/58
[2021-01-22 20:00] VITALS: BP 132/58
[2021-01-22] MEDS: SENNA 8.6 MG TAB (SENOKOT) PO SCH (20:38)
[2021-01-23 05:41] VITALS: BP 152/69
[2021-01-23 06:18] VITALS: BP 152/69
[2021-01-23 07:39] LABS: BASO # 0.1 10^3/uL (0.0-0.2); BASO % 0.9 % (0.0-1.0); EOS # 0.3 10^3/uL (0.0-0.5); EOS % 2.9 % (0.0-3.0); HEMATOCRIT 31.6 % (36.0-47.0); HEMOGLOBIN 10.1 g/dl (12.0-15.5); LYMPH % 19.8 % (24.0-44.0); MEAN CORPUSCULAR HEMOGLOBIN 29.5 pg (27.0-33.0); MEAN CORPUSCULAR VOLUME 92.4 fl (80.0-96.0); MONO # 0.7 10^3/uL (0.0-0.8); MONO % 7.2 % (2.0-8.0); NEUTROPHILS # 6.9 10^3/uL (1.5-8.5); NEUTROPHILS % 68.2 % (36.0-66.0); PLATELET COUNT, AUTOMATED 439 10^3/uL (150-450); RED BLOOD COUNT 3.42 10^6/uL (4.00-5.40); WHITE BLOOD COUNT 10.2 10^3/uL (4.0-10.0)
[2021-01-23 08:09] LABS: BLOOD UREA NITROGEN 38 MG/DL (7-18); CALCIUM LEVEL 9.9 MG/DL (8.8-10.2); CARBON DIOXIDE LEVEL 28 MEQ/L (21-32); CHLORIDE LEVEL 98 MEQ/L (98-107); CREATININE FOR GFR 0.94 MG/DL (0.55-1.30); GLOMERULAR FILTRATION RATE > 60.0 (>32); GLUCOSE, FASTING 110 MG/DL (70-100); POTASSIUM SERUM 4.1 MEQ/L (3.5-5.1); SODIUM LEVEL 136 MEQ/L (136-145)
[2021-01-23] MEDS: CYANOCOBALAMIN 500 MCG TAB PO SCH (08:37)
[2021-01-23] MEDS: DOCUSATE SODIUM 100MG CAPSULE PO SCH ×2 (08:37→20:53)
[2021-01-23] MEDS: SERTRALINE 100 MG TAB PO SCH (08:37)
[2021-01-23] MEDS: FERROUS GLUCONATE 324 MG TAB PO SCH (08:37)
[2021-01-23] MEDS: OMEPRAZOLE 20 MG CAP PO SCH (08:37)
[2021-01-23] MEDS: ASPIRIN 81MG ENTERIC TABLET PO SCH (08:37)
[2021-01-23] MEDS: SIMVASTATIN 20 MG TAB PO SCH (08:37)
[2021-01-23] MEDS: FUROSEMIDE 40 MG TAB PO SCH (08:37)
[2021-01-23] MEDS: NYSTATIN 500,000 U/5 ML SUSP UDC SS SCH ×3 (08:38→20:55)
[2021-01-23] MEDS: ACETAMINOPHEN 500 MG TAB PO SCH ×3 (08:38→20:54)
[2021-01-23] MEDS: REMEDY PHYTOPLEX Z-GUARD PASTE 113GM TUBE (FROM STOREROOM PRODUCT) TOP SCH ×3 (08:42→20:55)
[2021-01-23 14:00] VITALS: BP 118/58
[2021-01-23] MEDS: oxyCODONE 5MG TAB PO PRN (16:24)
[2021-01-23 20:00] VITALS: BP 119/63
[2021-01-23] MEDS: SENNA 8.6 MG TAB (SENOKOT) PO SCH (20:53)
[2021-01-24 06:00] VITALS: BP 147/67
--- NOTE | 2021-01-24 08:47 | IPNPDOC ---
PM&R Progress Note DATE OF SERVICE: Jan 24, 2021 [employer] Progress Note SUbjective: Patient reporting her urinary retention is getting worse. She otherwise denies fevers, chills, or burning with urination. REVIEW OF SYSTEMS: The following is a completed review of systems and has been reviewed. Review of systems otherwise unremarkable. PAIN: Patient self reports right hip pain EYES: No recent vision changes EARS, NOSE, & THROAT: No throat pain, or dysphagia, or rhinorrhea CARDIOVASCULAR: Denies chest pain or palpitations PULMONARY: Denies shortness of breath GASTROINTESTINAL: Denies constipation/diarrhea GENITOURINARY: denies dysuria, +chronic retention MUSCULOSKELETAL:s/p right hip fracture NEUROLOGICAL:denies paresthesias HEMATOLOGICAL: denies easy bruising SKIN: right hip incision PSYCHIATRIC: Unremarkable All other review of systems found to be negative. PHYSICAL EXAMINATION: VITAL SIGNS: Please see below. GENERAL: Pleasant and cooperative. No acute distress. HEENT: PERRL. Extraocular movements intact. Clear conjunctiva, +dentures CARDIOVASCULAR: Regular rate and rhythm. No murmurs, rubs, or gallops LUNGS: Clear to auscultation bilaterally. No wheezes. No rhonchi ABDOMEN: Soft, nontender, nondistended. Positive bowel sounds. Normal active bowel sounds, no suprapubic tenderness NEUROLOGICAL: Alert and oriented times three. Cranial nerves II through XII grossly intact. Sensation grossly intact EXTREMITIES: 5\5 strength bilateral upper extremities. 5/5 right ankel DF and EHL, (>3/5 hip flexion and knee extension- limited however due to recent surgery) extremity. 5/5 strength in left lower extremity. SKIN: right hip paige-incision without ecchymosis or induration LABORATORY DATA: Please see below. ASSESSMENT:80-year-old F with past medical history of HTn and CHF who presents status post fall with right hip fracture s/p ORIF PLAN: 1. Rehab- PT/OT advance mobility and ADls, strengthen/stretch/maintain ROM all 4limbs- ambulating further with RW 2. Ortho- s/p right hip orif on 01/15/21- WBAT, on ASA 81mg daily for DVT ppx -f/u with Dr. Marcum 3. CArdiac- hx of HTN c/u BP meds -chronic diastolic CHF daily weights, fluid restrict, lasix -hx of CAD? patient on ASA for DVT ppx, will need to f/u with chief electrician to reschedule cath 4. Resp- monitor for infection +rhinovirus/enterovirus on precautions, asymptomatic 5. 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 DVT ppx- ASA 81mg daily per ortho recs, TEDs 7. GI ppx- protonix 8. Psych- zoloft 9. Pain- tylneol and oxycodone 10. - urinary retention, per patient is chronic and possibly related to self- reported uterine prolapse, but patient reporting retention is getting worse, will or UA/Ucx to investigate infectious etiology and start flomax -will refer to urology on d/c, c/u to monitor and check PVRs 11. Dispo- [id number] to home, progressing towards goals Allergies Coded Allergies: No Known Allergies (Unverified , 09/12/20) Vital Signs Vital Signs Date Time Temp Pulse Resp B/P (MAP) Pulse Ox O2 Delivery O2 Flow Rate FiO2 01/24/21 06:00 97.1 79 18 147/67 (93) 98 Room Air Current Medications Current Medications Current Medications Medications (Trade) Dose Ordered Sig/Tl Route PRN Reason Start Time Stop Time Status Last Admin Dose Admin Acetaminophen (Tylenol Tab) 1,000 mg TID PO 01/18/21 16:00 01/23/21 20:54 Amlodipine Besylate (Norvasc) 2.5 mg QHS PO 01/18/21 21:00 01/23/21 20:54 Aspirin (Ecotrin) 81 mg DAILY PO 01/19/21 09:00 01/23/21 08:37 Bisacodyl (Dulcolax Suppository) 10 mg DAILYPRN PRN [place] CONSTIPATION 01/18/21 13:30 Cyanocobalamin (Vitamin B12) 500 mcg DAILY PO 01/19/21 09:00 01/23/21 08:37 Docusate Sodium (Colace) 100 mg BID PO 01/18/21 21:00 01/23/21 20:53 Ferrous Gluconate (Fergon) 324 mg DAILY PO 01/19/21 09:00 01/23/21 08:37 Furosemide (Lasix) 40 mg DAILY PO 01/19/21 09:00 01/23/21 08:37 Heparin Sodium (Porcine) (Heparin) 5,000 units Q12H SQ 01/18/21 21:00 01/20/21 09:53 DC 01/20/21 09:09 Lidocaine/ Diphenhydr/Alum/ Mg/Simeth (Magic Mouthwash) 5ML TIDP PRN SSP DISCOMFORT 01/18/21 19:55 Nystatin (Mycostatin) 5 ml TID SS 01/18/21 21:00 01/23/21 20:55 Omeprazole (PriLOSEC) 20 mg DAILY PO 01/19/21 09:00 01/23/21 08:37 Oxycodone HCl (Roxicodone, Oxyir) 5 mg Q4HP PRN PO PAIN 01/18/21 13:30 01/23/21 16:24 Polyethylene Glycol (Miralax) 1 pkt DAILY PRN PO CONSTIPATION 01/18/21 13:30 01/19/21 09:10 Senna (Senokot) 1 tab QHS PO 01/18/21 21:00 01/23/21 20:53 Sertraline HCl (Zoloft) 100 mg DAILY PO 01/19/21 09:00 01/23/21 08:37 Simvastatin (Zocor) 20 mg DAILY PO 01/19/21 09:00 01/23/21 08:37 ALEXA KIRKPATRICK MD Jan 24, 2021 08:47
[2021-01-24] MEDS: REMEDY PHYTOPLEX Z-GUARD PASTE 113GM TUBE (FROM STOREROOM PRODUCT) TOP SCH ×3 (09:00→20:41)
[2021-01-24] MEDS: SERTRALINE 100 MG TAB PO SCH (09:48)
[2021-01-24] MEDS: FUROSEMIDE 40 MG TAB PO SCH (09:48)
[2021-01-24] MEDS: ASPIRIN 81MG ENTERIC TABLET PO SCH (09:48)
[2021-01-24] MEDS: FERROUS GLUCONATE 324 MG TAB PO SCH (09:48)
[2021-01-24] MEDS: CYANOCOBALAMIN 500 MCG TAB PO SCH (09:48)
[2021-01-24] MEDS: SIMVASTATIN 20 MG TAB PO SCH (09:48)
[2021-01-24] MEDS: OMEPRAZOLE 20 MG CAP PO SCH (09:48)
[2021-01-24] MEDS: DOCUSATE SODIUM 100MG CAPSULE PO SCH ×2 (09:48→20:40)
[2021-01-24] MEDS: ACETAMINOPHEN 500 MG TAB PO SCH ×3 (09:49→20:40)
[2021-01-24] MEDS: NYSTATIN 500,000 U/5 ML SUSP UDC SS SCH ×3 (09:52→20:40)
--- NOTE | 2021-01-24 12:38 | IPNPDOC ---
Date Seen The patient was seen on 01/24/21. Progress Note Subjective: Urinary retention with bladder scan showing as much as > 500 at a time, being monitored by primary team. Has ice pack on anterior chest after lifting causing likely musculoskeletal pain. Doing well with PT. Denies incr SOB, diaphoresis, radiation of chest pain to neck or down arm, fevers, chills. Objective: Physical exam: Vitals: please see below Constitutional: Awake and alert, in no apparent distress ENT: Sclera are clear. Mucosa is moist. Respiratory: Lungs CTA bilaterally. No respiratory distress. No use of a ccessory muscles. Cardiovascular: RRR, S1 and S2 are normal, no murmur Chest: anterior chest wall pain on palpation Abdomen: Abdomen is soft, non distended, non tender, BS present Extremities: No lower extremity edema bilaterally. Limited range of movement at the R hip. Neurologic: Cranial nerves appear intact, no focal neurological deficit. Limited range of movement at the R hip. Mental Status: A&O x3, normal affect Labs: Reviewed. Stable Assessment: 80-year-old W with a history of congestive heart failure and hypertension who sustained a mechanical fall resulting in a closed right hip fracture who is POD#3 s/p R hip repair with cephalomedullary nail. R hip fracture: -S/p R hip surgery s/p cephalomedullary nail placement -PT/OT per ortho and PM&R -C/w current pain regiment -ASA 81 for DVT ppx per ortho Chronic HFpEF -Echo showing grade 2 diastolic dysfunction. -Continue home lasix 40mg PO daily -Monitor ins/outs. Hypertension: - amlodipine 2.5 QHS DVT prophylaxis - ASA 81 QD VS, I&O, 24H, Fishbone Vital Signs/I&O Vital Signs Date Time Temp Pulse Resp B/P (MAP) Pulse Ox O2 Delivery O2 Flow Rate FiO2 01/24/21 06:00 97.1 79 18 147/67 (93) 98 Room Air I&O- Last 24 Hours up to 6 AM 01/24/21 06:00 Intake Total 500 ml Output Total 1350 ml Balance -850 ml Sharon Victoria MD Jan 24, 2021 12:38
[2021-01-24 14:00] VITALS: BP 127/57
[2021-01-24 20:00] VITALS: BP 133/62
[2021-01-24] MEDS: TAMSULOSIN 0.4 MG CAP PO SCH (20:39)
[2021-01-24] MEDS: oxyCODONE 5MG TAB PO PRN (20:40)
[2021-01-24] MEDS: SENNA 8.6 MG TAB (SENOKOT) PO SCH (20:40)
[2021-01-25 06:00] VITALS: BP 136/80
[2021-01-25] MEDS: oxyCODONE 5MG TAB PO PRN (06:36)
[2021-01-25] MEDS: OMEPRAZOLE 20 MG CAP PO SCH (07:24)
[2021-01-25] MEDS: SIMVASTATIN 20 MG TAB PO SCH (07:25)
[2021-01-25] MEDS: FUROSEMIDE 40 MG TAB PO SCH (07:25)
[2021-01-25] MEDS: FERROUS GLUCONATE 324 MG TAB PO SCH (07:25)
[2021-01-25] MEDS: CYANOCOBALAMIN 500 MCG TAB PO SCH (07:25)
[2021-01-25] MEDS: NYSTATIN 500,000 U/5 ML SUSP UDC SS SCH ×3 (07:25→21:16)
[2021-01-25] MEDS: DOCUSATE SODIUM 100MG CAPSULE PO SCH ×2 (07:25→21:17)
[2021-01-25] MEDS: ASPIRIN 81MG ENTERIC TABLET PO SCH (07:25)
[2021-01-25] MEDS: ACETAMINOPHEN 500 MG TAB PO SCH ×3 (07:25→21:17)
[2021-01-25] MEDS: SERTRALINE 100 MG TAB PO SCH (07:25)
[2021-01-25] MEDS: REMEDY PHYTOPLEX Z-GUARD PASTE 113GM TUBE (FROM STOREROOM PRODUCT) TOP SCH ×3 (07:27→21:21)
[2021-01-25] MEDS: LevoFLOXacin 250 MG TABLET PO SCH (07:36)
[2021-01-25] MEDS: LACTOBACILLUS ACIDOPHILUS CAP (BACID) PO SCH ×3 (07:36→21:17)
[2021-01-25 07:48] LABS: BASO # 0.1 10^3/uL (0.0-0.2); BASO % 0.8 % (0.0-1.0); EOS # 0.2 10^3/uL (0.0-0.5); EOS % 2.2 % (0.0-3.0); HEMATOCRIT 29.9 % (36.0-47.0); HEMOGLOBIN 9.5 g/dl (12.0-15.5); LYMPH # 2.3 10^3/uL (1.5-5.0); LYMPH % 20.8 % (24.0-44.0); MEAN CORPUSCULAR HEMOGLOBIN 29.8 pg (27.0-33.0); MEAN CORPUSCULAR HGB CONC 31.8 g/dl (32.0-36.5); MEAN CORPUSCULAR VOLUME 93.7 fl (80.0-96.0); MONO # 0.7 10^3/uL (0.0-0.8); MONO % 6.8 % (2.0-8.0); NEUTROPHILS # 7.5 10^3/uL (1.5-8.5); NEUTROPHILS % 68.8 % (36.0-66.0); PLATELET COUNT, AUTOMATED 443 10^3/uL (150-450); RED BLOOD COUNT 3.19 10^6/uL (4.00-5.40); WHITE BLOOD COUNT 10.9 10^3/uL (4.0-10.0)
[2021-01-25 08:14] LABS: BLOOD UREA NITROGEN 31 MG/DL (7-18); CALCIUM LEVEL 8.9 MG/DL (8.8-10.2); CARBON DIOXIDE LEVEL 27 MEQ/L (21-32); CHLORIDE LEVEL 101 MEQ/L (98-107); CREATININE FOR GFR 0.86 MG/DL (0.55-1.30); GLOMERULAR FILTRATION RATE > 60.0 (>32); GLUCOSE, FASTING 104 MG/DL (70-100); POTASSIUM SERUM 3.2 MEQ/L (3.5-5.1); SODIUM LEVEL 136 MEQ/L (136-145)
--- NOTE | 2021-01-25 09:29 | IPNPDOC ---
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 REVIEW OF SYSTEMS: The following is a completed review of systems and has been reviewed. Review of systems otherwise unremarkable. PAIN: Patient self reports right hip pain EYES: No recent vision changes EARS, NOSE, & THROAT: No throat pain, or dysphagia, or rhinorrhea CARDIOVASCULAR: Denies chest pain or palpitations PULMONARY: Denies shortness of breath GASTROINTESTINAL: Denies constipation/diarrhea GENITOURINARY: denies dysuria, +chronic retention (improving) MUSCULOSKELETAL:s/p right hip fracture NEUROLOGICAL:denies paresthesias HEMATOLOGICAL: denies easy bruising SKIN: right hip incision PSYCHIATRIC: Unremarkable All other review of systems found to be negative. PHYSICAL EXAMINATION: VITAL SIGNS: Please see below. GENERAL: Pleasant and cooperative. No acute distress. HEENT: PERRL. Extraocular movements intact. Clear conjunctiva, +dentures CARDIOVASCULAR: Regular rate and rhythm. No murmurs, rubs, or gallops LUNGS: Clear to auscultation bilaterally. No wheezes. No rhonchi ABDOMEN: Soft, nontender, nondistended. Positive bowel sounds. Normal active bowel sounds, no suprapubic tenderness NEUROLOGICAL: Alert and oriented times three. Cranial nerves II through XII grossly intact. Sensation grossly intact EXTREMITIES: 5\5 strength bilateral upper extremities. 5/5 right ankel DF and EHL, (>3/5 hip flexion and knee extension- limited however due to recent surgery) extremity. 5/5 strength in left lower extremity. SKIN: right hip paige-incision without ecchymosis or induration LABORATORY DATA: Please see below. ASSESSMENT:80-year-old F with past medical history of HTn and CHF who presents status post fall with right hip fracture s/p ORIF PLAN: 1. Rehab- PT/OT advance mobility and ADls, strengthen/stretch/maintain ROM all 4limbs- ambulating further with RW 2. Ortho- s/p right hip orif on 01/15/21- WBAT, on ASA 81mg daily for DVT ppx -f/u with Dr. Marcum 3. CArdiac- hx of HTN c/u BP meds -chronic diastolic CHF daily weights, fluid restrict, lasix -hx of CAD? patient on ASA for DVT ppx, will need to f/u with conventions reservationist to reschedule cath 4. Resp- monitor for infection +rhinovirus/enterovirus on precautions, asymptomatic 5. 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 DVT ppx- ASA 81mg daily per ortho recs, TEDs 7. GI ppx- protonix 8. Psych- zoloft 9. Pain- tylneol and oxycodone 10. - urinary retention, per patient is chronic and possibly related to self- reported uterine prolapse, but patient reporting retention is getting worse, UA +LE, bacteria and wbc, started levaquin for UTI, f/u Ucx and c/u flomax- retention improving -will refer to urology on d/c for retention and microscopic hematuria, c/u to monitor and check PVRs 11. Hypokaelima- will replete and check Mg levels 12. Dispo- 01-27-21 to home, progressing towards goals Allergies Coded Allergies: No Known Allergies (Unverified , 09/12/20) Vital Signs Vital Signs Date Time Temp Pulse Resp B/P (MAP) Pulse Ox O2 Delivery O2 Flow Rate FiO2 01/25/21 07:06 16 01/25/21 06:00 97.0 82 136/80 (98) 97 Room Air Laboratory Data CBC/BMP Laboratory Tests 01/25/21 07:23 Labs 24H Laboratory Tests 2 01/24/21 11:17: Urine Color YELLOW, Urine Appearance CLOUDYH, Urine pH 5.0, Urine Specific [place] 1.011, Urine Protein NEGATIVE, Urine Glucose (UA) NEGATIVE, Urine Ketones NEGATIVE, Urine Blood 3+H, Urine Nitrite NEGATIVE, Urine Bilirubin NEGATIVE, Urine Urobilinogen 0.2, Urine Leukocyte Esterase 3+H, Urine WBC (Auto) 17H, Urine RBC (Auto) 79H, Urine Hyaline Casts (Auto) 4, Urine Bacteria (Auto) 2+H, Urine Squamous Epithelial Cells 12, Urine Mucus (Auto) SMALL, Urine Sperm (Auto) 01/25/21 07:23: Immature Granulocyte % (Auto) 0.6, Neutrophils (%) (Auto) 68.8H, Lymphocytes (%) (Auto) 20.8L, Monocytes (%) (Auto) 6.8, Eosinophils (%) (Auto) 2.2, Basophils (%) (Auto) 0.8, Neutrophils # (Auto) 7.5, Lymphocytes # (Auto) 2.3, Monocytes # (Auto) 0.7, Eosinophils # (Auto) 0.2, Basophils # (Auto) 0.1, Nucleated Red Blood Cells % (auto) 0.0, Anion Gap 8, Glomerular Filtration Rate > 60.0, Calcium Level 8.9 Microbiology Microbiology 01/24/21 Urine Culture, Received Pending Current Medications Current Medications Current Medications Medications (Trade) Dose Ordered Sig/Tl Route PRN Reason Start Time Stop Time Status Last Admin Dose Admin Acetaminophen (Tylenol Tab) 1,000 mg TID PO 01/18/21 16:00 01/25/21 07:25 Amlodipine Besylate (Norvasc) 2.5 mg QHS PO 01/18/21 21:00 01/24/21 20:41 Aspirin (Ecotrin) 81 mg DAILY PO 01/19/21 09:00 01/25/21 07:25 Bisacodyl (Dulcolax Suppository) 10 mg DAILYPRN PRN [place] CONSTIPATION 01/18/21 13:30 Cyanocobalamin (Vitamin B12) 500 mcg DAILY PO 01/19/21 09:00 01/25/21 07:25 Docusate Sodium (Colace) 100 mg BID PO 01/18/21 21:00 01/25/21 07:25 Ferrous Gluconate (Fergon) 324 mg DAILY PO 01/19/21 09:00 01/25/21 07:25 Furosemide (Lasix) 40 mg DAILY PO 01/19/21 09:00 01/25/21 07:25 Heparin Sodium (Porcine) (Heparin) 5,000 units Q12H SQ 01/18/21 21:00 01/20/21 09:53 DC 01/20/21 09:09 Lactobacillus Acidophilus (Bacid) 1 ea TID PO 01/25/21 09:00 01/25/21 07:36 Levofloxacin (Levaquin) 250 mg DAILY@06 PO 01/25/21 08:00 01/27/21 06:01 01/25/21 07:36 Lidocaine/ Diphenhydr/Alum/ Mg/Simeth (Magic Mouthwash) 5ML TIDP PRN SSP DISCOMFORT 01/18/21 19:55 Nystatin (Mycostatin) 5 ml TID SS 01/18/21 21:00 01/25/21 07:25 Omeprazole (PriLOSEC) 20 mg DAILY PO 01/19/21 09:00 01/25/21 07:24 Oxycodone HCl (Roxicodone, Oxyir) 5 mg Q4HP PRN PO PAIN 01/18/21 13:30 01/25/21 06:36 Polyethylene Glycol (Miralax) 1 pkt DAILY PRN PO CONSTIPATION 01/18/21 13:30 01/19/21 09:10 Senna (Senokot) 1 tab QHS PO 01/18/21 21:00 01/24/21 20:40 Sertraline HCl (Zoloft) 100 mg DAILY PO 01/19/21 09:00 01/25/21 07:25 Simvastatin (Zocor) 20 mg DAILY PO 01/19/21 09:00 01/25/21 07:25 Tamsulosin HCl (Flomax) 0.4 mg QHS PO 01/24/21 21:00 01/24/21 20:39 ALEXA KIRKPATRICK MD Jan 25, 2021 09:29
[2021-01-25] MEDS ORDERED: POTASSIUM CHLORIDE 10 MEQ SR TABLET PO ONE (10:00)
[2021-01-25 10:01] LABS: MAGNESIUM LEVEL 1.8 MG/DL (1.8-2.4)
[2021-01-25 14:00] VITALS: BP 134/63
[2021-01-25] MEDS: TAMSULOSIN 0.4 MG CAP PO SCH (21:17)
[2021-01-25] MEDS: SENNA 8.6 MG TAB (SENOKOT) PO SCH (21:17)
[2021-01-25 22:03] VITALS: BP 138/62
[2021-01-26] MEDS: MIRALAX *UNIT DOSE* 17GM PACKET PO PRN (05:16)
[2021-01-26] MEDS: LevoFLOXacin 250 MG TABLET PO SCH (05:16)
[2021-01-26 06:08] VITALS: BP 135/79
[2021-01-26 06:32] LABS: BLOOD UREA NITROGEN 28 MG/DL (7-18); CALCIUM LEVEL 9.4 MG/DL (8.8-10.2); CARBON DIOXIDE LEVEL 27 MEQ/L (21-32); CHLORIDE LEVEL 104 MEQ/L (98-107); CREATININE FOR GFR 0.88 MG/DL (0.55-1.30); GLOMERULAR FILTRATION RATE > 60.0 (>32); GLUCOSE, FASTING 100 MG/DL (70-100); POTASSIUM SERUM 4.2 MEQ/L (3.5-5.1); SODIUM LEVEL 138 MEQ/L (136-145)
[2021-01-26] MEDS: REMEDY PHYTOPLEX Z-GUARD PASTE 113GM TUBE (FROM STOREROOM PRODUCT) TOP SCH ×3 (09:00→22:10)
[2021-01-26] MEDS: NYSTATIN 500,000 U/5 ML SUSP UDC SS SCH ×3 (09:00→22:04)
[2021-01-26] MEDS: LACTOBACILLUS ACIDOPHILUS CAP (BACID) PO SCH ×3 (09:11→22:04)
[2021-01-26] MEDS: DOCUSATE SODIUM 100MG CAPSULE PO SCH ×2 (09:11→22:04)
[2021-01-26] MEDS: SERTRALINE 100 MG TAB PO SCH (09:12)
[2021-01-26] MEDS: CYANOCOBALAMIN 500 MCG TAB PO SCH (09:12)
[2021-01-26] MEDS: ASPIRIN 81MG ENTERIC TABLET PO SCH (09:12)
[2021-01-26] MEDS: OMEPRAZOLE 20 MG CAP PO SCH (09:12)
[2021-01-26] MEDS: FERROUS GLUCONATE 324 MG TAB PO SCH (09:12)
[2021-01-26] MEDS: ACETAMINOPHEN 500 MG TAB PO SCH ×3 (09:12→22:04)
[2021-01-26] MEDS: FUROSEMIDE 40 MG TAB PO SCH (09:12)
[2021-01-26] MEDS: SIMVASTATIN 20 MG TAB PO SCH (09:12)
--- NOTE | 2021-01-26 12:24 | IPNPDOC ---
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 REVIEW OF SYSTEMS: The following is a completed review of systems and has been reviewed. Review of systems otherwise unremarkable. PAIN: Patient self reports right hip pain EYES: No recent vision changes EARS, NOSE, & THROAT: No throat pain, or dysphagia, or rhinorrhea CARDIOVASCULAR: Denies chest pain or palpitations PULMONARY: Denies shortness of breath GASTROINTESTINAL: Denies constipation/diarrhea GENITOURINARY: denies dysuria, +chronic retention (improving) MUSCULOSKELETAL:s/p right hip fracture NEUROLOGICAL:denies paresthesias HEMATOLOGICAL: denies easy bruising SKIN: right hip incision PSYCHIATRIC: Unremarkable All other review of systems found to be negative. PHYSICAL EXAMINATION: VITAL SIGNS: Please see below. GENERAL: Pleasant and cooperative. No acute distress. HEENT: PERRL. Extraocular movements intact. Clear conjunctiva, +dentures CARDIOVASCULAR: Regular rate and rhythm. No murmurs, rubs, or gallops LUNGS: Clear to auscultation bilaterally. No wheezes. No rhonchi ABDOMEN: Soft, nontender, nondistended. Positive bowel sounds. Normal active bowel sounds, no suprapubic tenderness NEUROLOGICAL: Alert and oriented times three. Cranial nerves II through XII grossly intact. Sensation grossly intact EXTREMITIES: 5\5 strength bilateral upper extremities. 5/5 right ankel DF and EHL, (>3/5 hip flexion and knee extension- limited however due to recent surgery) extremity. 5/5 strength in left lower extremity. SKIN: right hip paige-incision without ecchymosis or induration LABORATORY DATA: Please see below. ASSESSMENT:80-year-old F with past medical history of HTn and CHF who presents status post fall with right hip fracture s/p ORIF PLAN: 1. Rehab- PT/OT advance mobility and ADls, strengthen/stretch/maintain ROM all 4limbs- ambulating further with RW- room privileges 2. Ortho- s/p right hip orif on 01/15/21- WBAT, on ASA 81mg daily for DVT ppx -f/u with Dr. Marcum 3. CArdiac- hx of HTN c/u BP meds -chronic diastolic CHF daily weights, fluid restrict, lasix -hx of CAD? patient on ASA for DVT ppx, will need to f/u with ham facer to reschedule cath 4. Resp- monitor for infection +rhinovirus/enterovirus on precautions, asymptomatic 5. 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 DVT ppx- ASA 81mg daily per ortho recs, TEDs 7. GI ppx- protonix 8. Psych- zoloft 9. Pain- tylneol and oxycodone 10. - urinary retention, per patient is chronic and possibly related to self- reported uterine prolapse, but patient reporting retention is getting worse, UA +LE, bacteria and wbc, started levaquin for UTI, f/u Ucx and c/u flomax- retention resolved -will refer to urology on d/c for retention and microscopic hematuria, c/u to monitor and check PVRs 11. Hypokalemia- will replete prn, MG levels WNL 12. Dispo- 01-27-21 to home, progressing towards goals Allergies Coded Allergies: No Known Allergies (Unverified , 09/12/20) Vital Signs Vital Signs Date Time Temp Pulse Resp B/P (MAP) Pulse Ox O2 Delivery O2 Flow Rate FiO2 01/26/21 06:08 97.4 87 18 135/79 (97) 100 Room Air Laboratory Data CBC/BMP Laboratory Tests 01/26/21 05:50 Labs 24H Laboratory Tests 2 01/26/21 05:50: Anion Gap 7L, Glomerular Filtration Rate > 60.0, Calcium Level 9.4 Microbiology Microbiology 01/24/21 Urine Culture, Received Pending Current Medications Current Medications Current Medications Medications (Trade) Dose Ordered Sig/Tl Route PRN Reason Start Time Stop Time Status Last Admin Dose Admin Acetaminophen (Tylenol Tab) 1,000 mg TID PO 01/18/21 16:00 01/26/21 09:12 Amlodipine Besylate (Norvasc) 2.5 mg QHS PO 01/18/21 21:00 01/25/21 21:20 Aspirin (Ecotrin) 81 mg DAILY PO 01/19/21 09:00 01/26/21 09:12 Bisacodyl (Dulcolax Suppository) 10 mg DAILYPRN PRN [place] CONSTIPATION 01/18/21 13:30 Cyanocobalamin (Vitamin B12) 500 mcg DAILY PO 01/19/21 09:00 01/26/21 09:12 Docusate Sodium (Colace) 100 mg BID PO 01/18/21 21:00 01/26/21 09:11 Ferrous Gluconate (Fergon) 324 mg DAILY PO 01/19/21 09:00 01/26/21 09:12 Furosemide (Lasix) 40 mg DAILY PO 01/19/21 09:00 01/26/21 09:12 Heparin Sodium (Porcine) (Heparin) 5,000 units Q12H SQ 01/18/21 21:00 01/20/21 09:53 DC 01/20/21 09:09 Lactobacillus Acidophilus (Bacid) 1 ea TID PO 01/25/21 09:00 01/26/21 09:11 Levofloxacin (Levaquin) 250 mg DAILY@06 PO 01/25/21 08:00 01/27/21 06:01 01/26/21 05:16 Lidocaine/ Diphenhydr/Alum/ Mg/Simeth (Magic Mouthwash) 5ML TIDP PRN SSP DISCOMFORT 01/18/21 19:55 Nystatin (Mycostatin) 5 ml TID SS 01/18/21 21:00 01/25/21 21:16 Omeprazole (PriLOSEC) 20 mg DAILY PO 01/19/21 09:00 01/26/21 09:12 Oxycodone HCl (Roxicodone, Oxyir) 5 mg Q4HP PRN PO PAIN 01/18/21 13:30 01/25/21 06:36 Polyethylene Glycol (Miralax) 1 pkt DAILY PRN PO CONSTIPATION 01/18/21 13:30 01/26/21 05:16 Senna (Senokot) 1 tab QHS PO 01/18/21 21:00 01/25/21 21:17 Sertraline HCl (Zoloft) 100 mg DAILY PO 01/19/21 09:00 01/26/21 09:12 Simvastatin (Zocor) 20 mg DAILY PO 01/19/21 09:00 01/26/21 09:12 Tamsulosin HCl (Flomax) 0.4 mg QHS PO 01/24/21 21:00 01/25/21 21:17 ALEXA KIRKPATRICK MD Jan 26, 2021 12:24
[2021-01-26 14:00] VITALS: BP 116/61
[2021-01-26 22:00] VITALS: BP 145/62
[2021-01-26] MEDS: SENNA 8.6 MG TAB (SENOKOT) PO SCH (22:03)
[2021-01-26] MEDS: TAMSULOSIN 0.4 MG CAP PO SCH (22:04)
[2021-01-26 22:07] VITALS: BP 145/62
[2021-01-27] MEDS: LevoFLOXacin 250 MG TABLET PO SCH (05:25)
[2021-01-27 06:01] VITALS: BP 130/80
[2021-01-27 07:16] LABS: BASO # 0.1 10^3/uL (0.0-0.2); BASO % 1.1 % (0.0-1.0); EOS # 0.2 10^3/uL (0.0-0.5); EOS % 2.5 % (0.0-3.0); HEMATOCRIT 27.9 % (36.0-47.0); HEMOGLOBIN 8.9 g/dl (12.0-15.5); LYMPH # 1.8 10^3/uL (1.5-5.0); LYMPH % 20.6 % (24.0-44.0); MEAN CORPUSCULAR HEMOGLOBIN 29.7 pg (27.0-33.0); MEAN CORPUSCULAR HGB CONC 31.9 g/dl (32.0-36.5); MONO # 0.6 10^3/uL (0.0-0.8); MONO % 6.4 % (2.0-8.0); NEUTROPHILS # 5.9 10^3/uL (1.5-8.5); NEUTROPHILS % 68.8 % (36.0-66.0); PLATELET COUNT, AUTOMATED 422 10^3/uL (150-450); WHITE BLOOD COUNT 8.6 10^3/uL (4.0-10.0)
[2021-01-27 07:39] LABS: BLOOD UREA NITROGEN 30 MG/DL (7-18); CALCIUM LEVEL 9.6 MG/DL (8.8-10.2); CARBON DIOXIDE LEVEL 26 MEQ/L (21-32); CHLORIDE LEVEL 103 MEQ/L (98-107); CREATININE FOR GFR 0.93 MG/DL (0.55-1.30); GLOMERULAR FILTRATION RATE > 60.0 (>32); GLUCOSE, FASTING 101 MG/DL (70-100); SODIUM LEVEL 138 MEQ/L (136-145)
[2021-01-27] MEDS: LACTOBACILLUS ACIDOPHILUS CAP (BACID) PO SCH (08:43)
[2021-01-27] MEDS: OMEPRAZOLE 20 MG CAP PO SCH (08:44)
[2021-01-27] MEDS: ASPIRIN 81MG ENTERIC TABLET PO SCH (08:44)
[2021-01-27] MEDS: DOCUSATE SODIUM 100MG CAPSULE PO SCH (08:44)
[2021-01-27] MEDS: FUROSEMIDE 40 MG TAB PO SCH (08:44)
[2021-01-27] MEDS: SERTRALINE 100 MG TAB PO SCH (08:44)
[2021-01-27] MEDS: ACETAMINOPHEN 500 MG TAB PO SCH (08:44)
[2021-01-27] MEDS: FERROUS GLUCONATE 324 MG TAB PO SCH (08:44)
[2021-01-27] MEDS: SIMVASTATIN 20 MG TAB PO SCH (08:44)
[2021-01-27] MEDS: CYANOCOBALAMIN 500 MCG TAB PO SCH (08:44)
[2021-01-27] MEDS: REMEDY PHYTOPLEX Z-GUARD PASTE 113GM TUBE (FROM STOREROOM PRODUCT) TOP SCH (08:45)
[2021-01-27] MEDS: NYSTATIN 500,000 U/5 ML SUSP UDC SS SCH (08:45)
[2021-01-27] MEDS ORDERED: FLOM0.4C39 PO (09:47)
[2021-01-27] MEDS ORDERED: VITA500T40 PO (09:47)
[2021-01-27] MEDS ORDERED: FERR32TA PO (09:47)
[2021-01-27] MEDS ORDERED: ZOLO100T PO (09:47)
[2021-01-27] MEDS ORDERED: RISATAB3 PO (09:47)
[2021-01-27] MEDS ORDERED: AMLO25TA PO (09:47)
[2021-01-27] MEDS ORDERED: OMEP-218 PO (09:47)
[2021-01-27] MEDS ORDERED: LISI10TA22 PO (09:47)
[2021-01-27] MEDS ORDERED: FURO40TA2 PO (09:47)
[2021-01-27] MEDS ORDERED: ASPI-551 PO (09:47)
[2021-01-27] MEDS ORDERED: SIMV20TA22 PO (09:47)
--- NOTE | 2021-01-27 10:46 | PMRDS ---
NAME: JAMMIE KEATING [facility] WT ID#: [id number] JOB: [id number] CINDY: 01/18/2021 ACCT: [id number] DOCTOR: ALEXA KIRKPATRICK MD PMR DISCHARGE SUMMARY DATE OF ADMISSION: 01/18/2021 DATE OF DISCHARGE: 01/24/2021 CHIEF COMPLAINT/DISCHARGE DIAGNOSIS: Right hip fracture. HISTORY OF PRESENT ILLNESS: This is an 80-year-old female with a past medical history of chronic diastolic congestive heart failure (CHF) and hypertension who fell at home without head trauma or loss of consciousness (LOC) and presented to [facility] ED on 01/13/2021, complaining of right leg weakness and pain. Hip x-rays revealed a right intertrochanteric femur fracture for which she was evaluated by orthopedics and underwent an ORIF on 12/26/2020, performed by Dr. Morocho. She developed postoperative anemia, acute kidney injury (CRISTIANA), acute diastolic CHF exacerbation, and hyponatremia. She was diuresed and placed on fluid restriction. She was also found to have human rhinovirus/enterovirus. She had mobility and ADL impairments in therapy and deemed medically appropriate for discharge to acute rehabilitation unit (ARU) on 01/18/2021. On initial evaluation, the patient denied having any respiratory symptoms and stated her pain is reasonably controlled. She was concerned about her heart because she was due for catheterization this month, which now has to be postponed because of her hip fracture. She denies chest pain or palpitations. PAST MEDICAL HISTORY: As per HPI. HOSPITAL COURSE: The patient was admitted and enrolled in the comprehensive physical therapy (PT) and occupational therapy (OT) program. She received 24 hour nursing supervision and weekly team meetings were held to discuss her progress. For DVT prophylaxis, the patient was on aspirin 81 mg p.o. daily and ambulated well. She was placed on a fluid restriction with daily weights for her CHF. The patient continued to have no respiratory symptoms during her hospital course and her hyponatremia did improve. The patient complained of urinary retention, which she stated she had at home and would otherwise push on her bladder to help her urinate. The patient reported that she believes she has uterine prolapse. The patient's retention did worsen initially on her ARU stay and she was started on Flomax in addition to Levaquin for a urinary tract infection with urine culture growing E. coli and Enterococcus faecalis. The patient's urinary retention improved and she was referred to urology per request down at [facility]. The patient had hypokalemia, which was repleted and her magnesium was found to be within normal limits. The patient was also noted to have microscopic hematuria with no notable drops in hemoglobin or hematocrit and was instructed to follow-up with the urologist. DISCHARGE MEDICATIONS: As per instructions. FUNCTIONAL HISTORY ON DISCHARGE: The patient was modified-independent for ambulation, all mobility, toileting, and activities of daily living (ADLs). Thank you for this referral.
== END 2021-01-27 12:00 | disposition home health service (06) | DRG 560 ==
LOC: M PM&R 15:30
PROVIDERS: ADMIT Physical Medicine & Rehabilitation; ATTEND Physical Medicine & Rehabilitation
DX: S72.141D Displaced intertrochanteric fracture of right femur, subsequent encounter for closed fracture with routine healing (principal); I50.32 Chronic diastolic (congestive) heart failure; E87.1 Hypo-osmolality and hyponatremia; N39.0 Urinary tract infection, site not specified; I11.0 Hypertensive heart disease with heart failure; E87.6 Hypokalemia; R33.9 Retention of urine, unspecified; R31.29 Other microscopic hematuria; B96.20 Unspecified Escherichia coli [E. coli] as the cause of diseases classified elsewhere; Z74.09 Other reduced mobility; Z74.1 Need for assistance with personal care; Z79.82 Long term (current) use of aspirin; Z79.899 Other long term (current) drug therapy; W01.0XXD Fall on same level from slipping, tripping and stumbling without subsequent striking against object, subsequent encounter; Y92.89 Other specified places as the place of occurrence of the external cause

== ENCOUNTER → 2021-02-02 | Outpatient (CLI) | payer MEDICARE ==
[~2021-02-02] MED LIST changes: +ASPI-551 PO; +FERR32TA PO; +FLOM0.4C39 PO; +OMEP-218 PO; +RISATAB3 PO; +VITA500T40 PO
--- NOTE | 2021-02-02 10:26 | REP ---
INDICATION: AP PELVIS TO INCLUDE HARDWARE. COMPARISON: None. TECHNIQUE: AP view of the pelvis with neutral and frog-lateral views of the right hip. FINDINGS: Patient is status post satisfactory open reduction and fixation for right intertrochanteric femur fracture. Overlying postsurgical changes are appreciated. Underlying age-related osteopenia and degenerative changes primarily involving the bilateral hips noted. IMPRESSION: Satisfactory postsurgical appearance. No obvious further acute fracture or dislocation appreciated. <Electronically signed by Javid Matthews > 02/02/21 [id number]
== END ==
LOC: M SOG 09:12
PROVIDERS: ATTEND Orthopaedic Surgery
DX: Z48.89 Encounter for other specified surgical aftercare (principal)

== ENCOUNTER → 2021-03-18 | Outpatient (CLI) | payer MEDICARE ==
[~2021-03-18] MED LIST changes: +ERGO500029 PO; -VITA50005 PO
[2021-03-18 11:53] LABS: HEMATOCRIT 34.1 % (36.0-47.0); HEMOGLOBIN 10.8 g/dl (12.0-15.5); MEAN CORPUSCULAR HEMOGLOBIN 30.6 pg (27.0-33.0); MEAN CORPUSCULAR HGB CONC 31.7 g/dl (32.0-36.5); MEAN CORPUSCULAR VOLUME 96.6 fl (80.0-96.0); PLATELET COUNT, AUTOMATED 306 10^3/uL (150-450); RED BLOOD COUNT 3.53 10^6/uL (4.00-5.40); WHITE BLOOD COUNT 7.4 10^3/uL (4.0-10.0)
[2021-03-18 12:25] LABS: BLOOD UREA NITROGEN 17 MG/DL (7-18); CALCIUM LEVEL 9.3 MG/DL (8.8-10.2); CARBON DIOXIDE LEVEL 30 MEQ/L (21-32); CHLORIDE LEVEL 104 MEQ/L (98-107); CREATININE FOR GFR 0.86 MG/DL (0.55-1.30); GLOMERULAR FILTRATION RATE > 60.0 (>32); GLUCOSE, FASTING 92 MG/DL (70-100); MAGNESIUM LEVEL 1.7 MG/DL (1.8-2.4); NT-PRO BNP 2519 PG/ML (<450); POTASSIUM SERUM 3.7 MEQ/L (3.5-5.1); SODIUM LEVEL 142 MEQ/L (136-145)
== END ==
LOC: M LAB 11:18
PROVIDERS: ATTEND Internal Medicine Cardiovascular Disease
DX: I48.91 Unspecified atrial fibrillation (principal); I50.31 Acute diastolic (congestive) heart failure; I47.2 Ventricular tachycardia

== ENCOUNTER → 2021-03-29 | Outpatient (CLI) | payer MEDICARE ==
--- NOTE | 2021-03-29 14:21 | REP ---
INDICATION: FX UNSP PART OF NK OF R FEMR, SUBS FOR CLOS FX W ROUTN HEAL. COMPARISON: 02/02/2021 TECHNIQUE: AP frog-lateral views FINDINGS: The previously described proximal femoral fracture with previous ORIF is again noted with indistinct margins consistent with callus formation from healing. Advanced degenerative changes are again seen involving the right hip. The bones are demineralized. There is no evidence of an acute fracture. IMPRESSION: Healing fracture and other findings as described above. <Electronically signed by Jordan Acosta > 03/29/21 [id number]
== END ==
LOC: M SOG 13:49
PROVIDERS: ATTEND Orthopaedic Surgery
DX: S72.001D Fracture of unspecified part of neck of right femur, subsequent encounter for closed fracture with routine healing (principal)

== ENCOUNTER 2021-08-01 13:24 | Observation (INO) | payer MEDICARE ==
[~2021-08-01] VITALS: Ht 152.4 cm; Wt 60.9 kg
[~2021-08-01 13:24] MED LIST changes: +DOK1CAP4 PO; -DOK1CAP7 PO; +OMEP-173 PO; -OMEP-218 PO
[2021-08-01 17:44] LABS: BLOOD UREA NITROGEN 12 MG/DL (7-18); CALCIUM LEVEL 8.4 MG/DL (8.8-10.2); CARBON DIOXIDE LEVEL 29 MEQ/L (21-32); CHLORIDE LEVEL 106 MEQ/L (98-107); CREATININE FOR GFR 0.79 MG/DL (0.55-1.30); GLOMERULAR FILTRATION RATE > 60.0 (>32); GLUCOSE, FASTING 97 MG/DL (70-100); NT-PRO BNP 17990 PG/ML (<450); POTASSIUM SERUM 2.7 MEQ/L (3.5-5.1); SODIUM LEVEL 144 MEQ/L (136-145)
[2021-08-01] MEDS ORDERED: POTASSIUM CHLORIDE 10MEQ SR TABLET PO ONE (17:45)
[2021-08-01] MEDS ORDERED: KCL 10MEQ/100ML SWI (KRUN) 10 MEQ in IV 1 EA IV ONE ×4 (17:45)
[2021-08-01] MEDS ORDERED: FUROSEMIDE 20MG/2ML VIAL (J1940) IV ONE ×2 (17:55→20:35)
[2021-08-01 19:15] LABS: BASO # 0.1 10^3/uL (0.0-0.2); BASO % 0.9 % (0.0-1.0); EOS # 0.1 10^3/uL (0.0-0.5); HEMATOCRIT 32.7 % (36.0-47.0); HEMOGLOBIN 10.5 g/dl (12.0-15.5); LYMPH % 30.2 % (24.0-44.0); MEAN CORPUSCULAR HEMOGLOBIN 29.6 pg (27.0-33.0); MEAN CORPUSCULAR HGB CONC 32.1 g/dl (32.0-36.5); MEAN CORPUSCULAR VOLUME 92.1 fl (80.0-96.0); MONO # 0.5 10^3/uL (0.0-0.8); MONO % 6.8 % (2.0-8.0); NEUTROPHILS % 59.9 % (36.0-66.0); PLATELET COUNT, AUTOMATED 265 10^3/uL (150-450); RED BLOOD COUNT 3.55 10^6/uL (4.00-5.40); VENOUS BASE EXCESS 1.3 (-2.0-2.0); VENOUS HCO3 26.3 MEQ/L (23.0-27.0); VENOUS O2 SATURATION 55.3 % (60.0-80.0); VENOUS PARTIAL PRESSURE CO2 43.2 mmHg (38.0-50.0); VENOUS PARTIAL PRESSURE O2 30.8 mmHg (30.0-50.0); VENOUS PH 7.403 UNITS (7.330-7.430); VENOUS STANDARD HCO3 24.8 MEQ/L; VENOUS TOTAL CO2 27.7 MEQ/L (24.0-28.0); WHITE BLOOD COUNT 6.6 10^3/uL (4.0-10.0)
[2021-08-01] MEDS ORDERED: ACETAMINOPHEN TAB 650MG DOSE (2X325MG) PO PRN (20:10)
[2021-08-01] MEDS ORDERED: MAALOX 30 ML SUSP *UDC PO PRN (20:10)
[2021-08-01] MEDS ORDERED: MOM 30ML SUSPENSION UDC PO PRN (20:10)
[2021-08-01] MEDS ORDERED: ASPI81CH33 PO (20:26)
[2021-08-01] MEDS ORDERED: FERR32TA PO (20:28)
[2021-08-01] MEDS ORDERED: LISI10TA22 PO (20:30)
[2021-08-01] MEDS ORDERED: ZOLO100T PO (20:30)
[2021-08-01] MEDS ORDERED: BISO5TAB14 PO (20:32)
[2021-08-01] MEDS ORDERED: CLOP75TA2 PO (20:32)
[2021-08-01] MEDS ORDERED: FLOM0.4C39 PO (20:32)
[2021-08-01] MEDS ORDERED: HOME MED LIST COMPLETE! XX SCH (20:35)
[2021-08-01] MEDS: DOCUSATE SODIUM 100MG CAPSULE PO SCH (21:00)
[2021-08-01 21:01] LABS: INR 1.05; PARTIAL THROMBOPLASTIN TIME 30.5 SECONDS (25.9-37.0); PROTHROMBIN TIME 14.1 SECONDS (12.7-14.5)
[2021-08-02] VITALS (7 sets, daily range): BP systolic 124–177; BP diastolic 72–84; O2SAT 85–95
[2021-08-02] MEDS: FERROUS GLUCONATE 324 MG TAB PO SCH ×3 (00:52→21:22)
[2021-08-02 01:15] LABS: BLOOD UREA NITROGEN 12 MG/DL (7-18); CALCIUM LEVEL 8.8 MG/DL (8.8-10.2); CARBON DIOXIDE LEVEL 29 MEQ/L (21-32); CHLORIDE LEVEL 105 MEQ/L (98-107); CREATININE FOR GFR 0.74 MG/DL (0.55-1.30); GLOMERULAR FILTRATION RATE > 60.0 (>32); GLUCOSE, FASTING 101 MG/DL (70-100); MAGNESIUM LEVEL 1.6 MG/DL (1.8-2.4); POTASSIUM SERUM 3.2 MEQ/L (3.5-5.1); SODIUM LEVEL 143 MEQ/L (136-145)
[2021-08-02] MEDS ORDERED: POTASSIUM CHLORIDE 10MEQ SR TABLET PO ONE ×2 (01:20→13:05)
[2021-08-02] MEDS ORDERED: MAG SULF 1GM/100ML (MAG RUN) 1 GM in IV 1 EA IV ONE ×2 (01:20→13:05)
[2021-08-02 08:24] LABS: HEMATOCRIT 34.8 % (36.0-47.0); HEMOGLOBIN 11.2 g/dl (12.0-15.5); MEAN CORPUSCULAR HEMOGLOBIN 29.2 pg (27.0-33.0); MEAN CORPUSCULAR HGB CONC 32.2 g/dl (32.0-36.5); MEAN CORPUSCULAR VOLUME 90.9 fl (80.0-96.0); PLATELET COUNT, AUTOMATED 286 10^3/uL (150-450); RED BLOOD COUNT 3.83 10^6/uL (4.00-5.40); WHITE BLOOD COUNT 7.9 10^3/uL (4.0-10.0)
[2021-08-02] MEDS: ASPIRIN 81 MG CHEW TABLET PO SCH (08:27)
[2021-08-02] MEDS: DOCUSATE SODIUM 100MG CAPSULE PO SCH ×2 (08:27→21:22)
[2021-08-02] MEDS: CLOPIDOGREL 75 MG TAB PO SCH (08:28)
[2021-08-02] MEDS: SIMVASTATIN 20 MG TAB PO SCH (08:28)
[2021-08-02] MEDS: SERTRALINE 100 MG TAB PO SCH (08:28)
[2021-08-02] MEDS: bisoproloL fumarate 5 MG TAB PO SCH (08:28)
[2021-08-02] MEDS: TAMSULOSIN 0.4 MG CAP PO SCH (08:28)
[2021-08-02] MEDS: ENOXAPARIN 40MG/0.4ML SYRINGE (J1650 PER 10MG) SC SCH (08:30)
[2021-08-02 08:44] LABS: BLOOD UREA NITROGEN 10 MG/DL (7-18); CALCIUM LEVEL 8.8 MG/DL (8.8-10.2); CARBON DIOXIDE LEVEL 29 MEQ/L (21-32); CHLORIDE LEVEL 106 MEQ/L (98-107); CREATININE FOR GFR 0.82 MG/DL (0.55-1.30); GLOMERULAR FILTRATION RATE > 60.0 (>32); GLUCOSE, FASTING 79 MG/DL (70-100); MAGNESIUM LEVEL 1.8 MG/DL (1.8-2.4); POTASSIUM SERUM 3.4 MEQ/L (3.5-5.1); SODIUM LEVEL 144 MEQ/L (136-145)
[2021-08-02] MEDS ORDERED: FUROSEMIDE 40MG/4ML VIAL (J1940) IV SCH (09:00)
[2021-08-02] MEDS: FUROSEMIDE 40MG/4ML VIAL (J1940) IV SCH ×2 (16:51→21:22)
[2021-08-03 06:00] VITALS: BP 134/72
[2021-08-03] MEDS ORDERED: FURO40TA2 PO (08:33)
[2021-08-03] MEDS: ASPIRIN 81 MG CHEW TABLET PO SCH (09:01)
[2021-08-03] MEDS: FUROSEMIDE 40MG/4ML VIAL (J1940) IV SCH (09:01)
[2021-08-03] MEDS: FERROUS GLUCONATE 324 MG TAB PO SCH (09:02)
[2021-08-03] MEDS: ENOXAPARIN 40MG/0.4ML SYRINGE (J1650 PER 10MG) SC SCH (09:02)
[2021-08-03] MEDS: DOCUSATE SODIUM 100MG CAPSULE PO SCH (09:03)
[2021-08-03] MEDS: SERTRALINE 100 MG TAB PO SCH (09:03)
[2021-08-03] MEDS: TAMSULOSIN 0.4 MG CAP PO SCH (09:03)
[2021-08-03] MEDS: SIMVASTATIN 20 MG TAB PO SCH (09:03)
[2021-08-03] MEDS: CLOPIDOGREL 75 MG TAB PO SCH (09:04)
[2021-08-03 09:09] VITALS: BP 154/77
[2021-08-03] MEDS: bisoproloL fumarate 5 MG TAB PO SCH (09:10)
[2021-08-03 09:56] LABS: HEMATOCRIT 38.5 % (36.0-47.0); HEMOGLOBIN 12.3 g/dl (12.0-15.5); MEAN CORPUSCULAR HEMOGLOBIN 29.3 pg (27.0-33.0); MEAN CORPUSCULAR HGB CONC 31.9 g/dl (32.0-36.5); MEAN CORPUSCULAR VOLUME 91.7 fl (80.0-96.0); PLATELET COUNT, AUTOMATED 302 10^3/uL (150-450); WHITE BLOOD COUNT 8.4 10^3/uL (4.0-10.0)
[2021-08-03 10:25] LABS: BLOOD UREA NITROGEN 16 MG/DL (7-18); CALCIUM LEVEL 9.2 MG/DL (8.8-10.2); CARBON DIOXIDE LEVEL 33 MEQ/L (21-32); CHLORIDE LEVEL 100 MEQ/L (98-107); CREATININE FOR GFR 0.92 MG/DL (0.55-1.30); GLOMERULAR FILTRATION RATE > 60.0 (>32); GLUCOSE, FASTING 96 MG/DL (70-100); MAGNESIUM LEVEL 1.8 MG/DL (1.8-2.4); POTASSIUM SERUM 3.4 MEQ/L (3.5-5.1); SODIUM LEVEL 141 MEQ/L (136-145)
[2021-08-03] MEDS ORDERED: POTASSIUM CHLORIDE 10MEQ SR TABLET PO ONE (11:25)
[2021-08-03] MEDS ORDERED: MAGNESIUM OXIDE 400MG TAB (MAG-OX) PO ONE (11:25)
[2021-08-03] MEDS ORDERED: POTA1TAB14 PO (13:40)
== END 2021-08-03 13:27 | disposition home health service (06) ==
LOC: M ED 13:24 → M ED INP 13:25 → ENRESERV 08-02 17:58 → M MSPAV 08-02 18:36
PROVIDERS: ADMIT Family Medicine; ATTEND Internal Medicine
DX: I50.33 Acute on chronic diastolic (congestive) heart failure (principal); I25.10 Atherosclerotic heart disease of native coronary artery without angina pectoris; E78.5 Hyperlipidemia, unspecified; I11.0 Hypertensive heart disease with heart failure; D50.9 Iron deficiency anemia, unspecified; Z85.3 Personal history of malignant neoplasm of breast; Z92.21 Personal history of antineoplastic chemotherapy; Z92.3 Personal history of irradiation; E87.6 Hypokalemia; R06.02 Shortness of breath; Z95.5 Presence of coronary angioplasty implant and graft; F32.9 Major depressive disorder, single episode, unspecified; F41.9 Anxiety disorder, unspecified; K44.9 Diaphragmatic hernia without obstruction or gangrene; K57.90 Diverticulosis of intestine, part unspecified, without perforation or abscess without bleeding; Z79.899 Other long term (current) drug therapy; Z79.82 Long term (current) use of aspirin; Z79.02 Long term (current) use of antithrombotics/antiplatelets
CPT/HCPCS: 36415; 71045; 80048; 82803; 83735; 83880; 84443; 84484; 85025; 85027; 85379; 85610; 85730; 87798; 93005; 93041; 93306; 96365; 96366; 96368; 96372; 96375; 96376; 99285; G0378; J1650; J1940; J3475; J3480

== ENCOUNTER → 2021-09-20 | Outpatient (CLI) | payer MEDICARE ==
[~2021-09-20] MED LIST changes: +ASPI81CH33 PO; +BISO5TAB14 PO; +CLOP75TA2 PO
[2021-09-20 13:08] LABS: ALBUMIN 4.2 GM/DL (3.2-5.2); CHOLESTEROL RISK RATIO 3.722 (<5); CREATININE FOR GFR 1.27 MG/DL (0.55-1.30); PHOSPHORUS LEVEL 4.3 MG/DL (2.5-4.9); POTASSIUM SERUM 5.7 MEQ/L (3.5-5.1)
== END ==
LOC: M LAB 11:09
PROVIDERS: ATTEND Internal Medicine Cardiovascular Disease
DX: E78.00 Pure hypercholesterolemia, unspecified (principal); I50.30 Unspecified diastolic (congestive) heart failure

== ENCOUNTER → 2022-02-07 | Outpatient (REF) | payer MEDICARE | LOC: M LAB REF 09:56 | PROVIDERS: ATTEND Physician Assistant | DX: R30.0 Dysuria (principal) ==

== ENCOUNTER → 2022-05-29 | Outpatient (CLI) | payer MEDICARE ==
[2022-05-29 13:44] LABS: HEMATOCRIT 35.4 % (36.0-47.0); HEMOGLOBIN 11.4 g/dl (12.0-15.5); MEAN CORPUSCULAR HGB CONC 32.2 g/dl (32.0-36.5); MEAN CORPUSCULAR VOLUME 96.2 fl (80.0-96.0); PLATELET COUNT, AUTOMATED 290 10^3/uL (150-450); RED BLOOD COUNT 3.68 10^6/uL (4.00-5.40); WHITE BLOOD COUNT 8.3 10^3/uL (4.0-10.0)
[2022-05-29 14:27] LABS: CALCIUM LEVEL 9.4 MG/DL (8.8-10.2); CHOLESTEROL RISK RATIO 2.825 (<5); CREATININE FOR GFR 0.96 MG/DL (0.55-1.30); GLOMERULAR FILTRATION RATE 59.2 (>32); POTASSIUM SERUM 4.6 MEQ/L (3.5-5.1)
== END ==
LOC: M LAB 13:18
PROVIDERS: ATTEND Internal Medicine Cardiovascular Disease
DX: E78.00 Pure hypercholesterolemia, unspecified (principal); I11.0 Hypertensive heart disease with heart failure; I50.30 Unspecified diastolic (congestive) heart failure; I25.10 Atherosclerotic heart disease of native coronary artery without angina pectoris

== ENCOUNTER → 2023-08-14 | Outpatient (CLI) | payer BC, MEDICARE ==
[~2023-08-14] MED LIST changes: +POTA-298 PO; -POTA1TAB14 PO
[2023-08-14 12:33] LABS: HEMATOCRIT 34.4 % (36.0-47.0); MEAN CORPUSCULAR HEMOGLOBIN 30.6 pg (27.0-33.0); MEAN CORPUSCULAR VOLUME 95.8 fl (80.0-96.0); PLATELET COUNT, AUTOMATED 247 10^3/uL (150-450); RED BLOOD COUNT 3.59 10^6/uL (4.00-5.40); WHITE BLOOD COUNT 6.6 10^3/uL (4.0-10.0)
[2023-08-14 12:46] LABS: HEMOGLOBIN A1c 5.5 % (4.0-6.0)
[2023-08-14 13:05] LABS: ALBUMIN 3.7 G/DL (3.2-5.2); ALKALINE PHOSPHATASE 80 U/L (46-116); ALT/SGPT 15 U/L (7.0-40); AST/SGOT 16 U/L (<34); BILIRUBIN,TOTAL 0.7 MG/DL (0.3-1.2); BLOOD UREA NITROGEN 15 MG/DL (9-23); CALCIUM LEVEL 9.1 MG/DL (8.3-10.6); CARBON DIOXIDE LEVEL 27 MMOL/L (20-31); CHLORIDE LEVEL 105 MMOL/L (98-107); CHOLESTEROL LEVEL 167 MG/DL (<200); CREATININE FOR GFR 0.73 MG/DL (0.55-1.30); GLOMERULAR FILTRATION RATE > 60.0 (>32); GLUCOSE, FASTING 82 MG/DL (74-106); HDL CHOLESTEROL 64.2 MG/DL (>40); LDL CHOLESTEROL 87.6 MG/DL (<100); NON-HDL-C 102.8 MG/DL; POTASSIUM SERUM 3.3 MMOL/L (3.5-5.1); SODIUM LEVEL 140 MMOL/L (136-145); TOTAL PROTEIN 6.6 G/DL (5.7-8.2); TRIGLYCERIDES LEVEL 76 MG/DL (<150)
[2023-08-14 13:08] LABS: THYROID STIMULATING HORMONE 1.028 uIU/ML (0.55-4.78)
[2023-08-14 13:09] LABS: TOTAL 25(OH) VITAMIN D 149.8 NG/ML (20.0-100.0)
== END ==
LOC: M LAB 11:10
PROVIDERS: ATTEND Family Medicine
DX: I10 Essential (primary) hypertension (principal); R53.83 Other fatigue; E03.9 Hypothyroidism, unspecified; Z79.899 Other long term (current) drug therapy

== ENCOUNTER → 2023-08-14 | Outpatient (CLI) | payer BC, MEDICARE ==
[2023-08-14 12:35] LABS: BASO # 0.1 10^3/uL (0.0-0.2); BASO % 1.3 % (0.0-1.0); EOS # 0.1 10^3/uL (0.0-0.5); EOS % 1.9 % (0.0-3.0); HEMATOCRIT 34.6 % (36.0-47.0); LYMPH # 1.6 10^3/uL (1.5-5.0); LYMPH % 25.6 % (24.0-44.0); MEAN CORPUSCULAR HEMOGLOBIN 30.5 pg (27.0-33.0); MEAN CORPUSCULAR HGB CONC 31.8 g/dl (32.0-36.5); MEAN CORPUSCULAR VOLUME 95.8 fl (80.0-96.0); MONO # 0.5 10^3/uL (0.0-0.8); MONO % 7.8 % (2.0-8.0); NEUTROPHILS % 63.1 % (36.0-66.0); PLATELET COUNT, AUTOMATED 251 10^3/uL (150-450); RED BLOOD COUNT 3.61 10^6/uL (4.00-5.40); WHITE BLOOD COUNT 6.3 10^3/uL (4.0-10.0)
[2023-08-14 13:08] LABS: BLOOD UREA NITROGEN 14 MG/DL (9-23); CALCIUM LEVEL 9.5 MG/DL (8.3-10.6); CARBON DIOXIDE LEVEL 28 MMOL/L (20-31); CHLORIDE LEVEL 106 MMOL/L (98-107); CHOLESTEROL LEVEL 167 MG/DL (<200); CHOLESTEROL RISK RATIO 2.62 (<5); CREATININE FOR GFR 0.74 MG/DL (0.55-1.30); GLOMERULAR FILTRATION RATE > 60.0 (>32); GLUCOSE, FASTING 83 MG/DL (74-106); HDL CHOLESTEROL 63.5 MG/DL (>40); LDL CHOLESTEROL 88.9 MG/DL (<100); NON-HDL-C 103.5 MG/DL; POTASSIUM SERUM 3.7 MMOL/L (3.5-5.1); SODIUM LEVEL 143 MMOL/L (136-145); TRIGLYCERIDES LEVEL 73 MG/DL (<150)
== END ==
LOC: M LAB 11:07
PROVIDERS: ATTEND Internal Medicine Cardiovascular Disease
DX: E78.2 Mixed hyperlipidemia (principal); I50.31 Acute diastolic (congestive) heart failure; R06.02 Shortness of breath

== ENCOUNTER → 2023-08-27 | Outpatient (CLI) | payer MEDICARE | LOC: M LAB 14:01 | PROVIDERS: ATTEND Registered Nurse | DX: I50.31 Acute diastolic (congestive) heart failure (principal) ==

== ENCOUNTER → 2024-06-02 | Outpatient (CLI) | payer MEDICARE ==
[~2024-06-02] MED LIST changes: -MIRA1POW3 PO; +MIRA33506 PO
[2024-06-02 11:07] LABS: BASO # 0.1 10^3/uL (0.0-0.2); BASO % 1.4 % (0.0-1.0); EOS # 0.2 10^3/uL (0.0-0.5); EOS % 3.3 % (0.0-3.0); HEMATOCRIT 31.3 % (36.0-47.0); HEMOGLOBIN 9.9 g/dl (12.0-15.5); LYMPH # 1.5 10^3/uL (1.5-5.0); LYMPH % 26.6 % (24.0-44.0); MEAN CORPUSCULAR HEMOGLOBIN 30.8 pg (27.0-33.0); MEAN CORPUSCULAR HGB CONC 31.6 g/dl (32.0-36.5); MEAN CORPUSCULAR VOLUME 97.5 fl (80.0-96.0); MONO # 0.4 10^3/uL (0.0-0.8); MONO % 7.4 % (2.0-8.0); NEUTROPHILS # 3.6 10^3/uL (1.5-8.5); NEUTROPHILS % 61.3 % (36.0-66.0); PLATELET COUNT, AUTOMATED 270 10^3/uL (150-450); RED BLOOD COUNT 3.21 10^6/uL (4.00-5.40); WHITE BLOOD COUNT 5.8 10^3/uL (4.0-10.0)
[2024-06-02 12:08] LABS: BLOOD UREA NITROGEN 21 MG/DL (9-23); CALCIUM LEVEL 8.9 MG/DL (8.3-10.6); CARBON DIOXIDE LEVEL 24 MMOL/L (20-31); CHLORIDE LEVEL 110 MMOL/L (98-107); CREATININE FOR GFR 0.87 MG/DL (0.55-1.30); GLOMERULAR FILTRATION RATE > 60.0 (>32); GLUCOSE, FASTING 89 MG/DL (74-106); POTASSIUM SERUM 3.4 MMOL/L (3.5-5.1); SODIUM LEVEL 143 MMOL/L (136-145)
== END ==
LOC: M LAB 10:37
PROVIDERS: ATTEND Internal Medicine Cardiovascular Disease
DX: I50.31 Acute diastolic (congestive) heart failure (principal); I48.0 Paroxysmal atrial fibrillation; R06.02 Shortness of breath

== ENCOUNTER → 2024-12-02 | Outpatient (CLI) | payer MEDICARE ==
[2024-12-02 13:41] LABS: HEMOGLOBIN 11.5 g/dl (12.0-15.5); MEAN CORPUSCULAR HEMOGLOBIN 31.3 pg (27.0-33.0); MEAN CORPUSCULAR HGB CONC 31.9 g/dl (32.0-36.5); MEAN CORPUSCULAR VOLUME 98.1 fl (80.0-96.0); PLATELET COUNT, AUTOMATED 287 10^3/uL (150-450); RED BLOOD COUNT 3.67 10^6/uL (4.00-5.40); WHITE BLOOD COUNT 6.5 10^3/uL (4.0-10.0)
[2024-12-02 14:03] LABS: ALBUMIN 3.9 G/DL (3.2-5.2); ALKALINE PHOSPHATASE 59 U/L (35-104); ALT/SGPT 18 U/L (7.0-40); AST/SGOT 16 U/L (<34); BILIRUBIN,TOTAL 0.5 MG/DL (0.3-1.2); BLOOD UREA NITROGEN 22 MG/DL (9-23); CALCIUM LEVEL 9.1 MG/DL (8.3-10.6); CARBON DIOXIDE LEVEL 30 MMOL/L (20-31); CHLORIDE LEVEL 102 MMOL/L (98-107); CHOLESTEROL LEVEL 172 MG/DL (<200); CHOLESTEROL RISK RATIO 2.51 (<5); CREATININE FOR GFR 1.08 MG/DL (0.55-1.30); GLOMERULAR FILTRATION RATE 50.3 (>32); GLUCOSE, FASTING 86 MG/DL (74-106); HDL CHOLESTEROL 68.5 MG/DL (>40); LDL CHOLESTEROL 86.5 MG/DL (<100); NON-HDL-C 103.5 MG/DL; POTASSIUM SERUM 4.3 MMOL/L (3.5-5.1); SODIUM LEVEL 142 MMOL/L (136-145); THYROID STIMULATING HORMONE 0.769 uIU/ML (0.55-4.78); TOTAL PROTEIN 6.8 G/DL (5.7-8.2); TRIGLYCERIDES LEVEL 85 MG/DL (<150)
[2024-12-02 14:06] LABS: TOTAL 25(OH) VITAMIN D > 150.0 NG/ML (20.0-100.0)
[2024-12-02 14:10] LABS: HEMOGLOBIN A1c 5.4 % (4.0-6.0)
== END ==
LOC: M LAB 11:23
PROVIDERS: ATTEND Family Medicine
DX: I10 Essential (primary) hypertension (principal); E11.9 Type 2 diabetes mellitus without complications; R53.83 Other fatigue; E03.9 Hypothyroidism, unspecified; Z79.899 Other long term (current) drug therapy

== ENCOUNTER → 2025-04-30 | Outpatient (REF) | payer MEDICARE ==
[~2025-04-30] MED LIST changes: -FLOM0.4C39 PO; +TAMS-18 PO
== END ==
LOC: M SFHCPLAZ 07:37
PROVIDERS: ATTEND Family Medicine
DX: Z53.9 Procedure and treatment not carried out, unspecified reason (principal); D64.9 Anemia, unspecified; I25.10 Atherosclerotic heart disease of native coronary artery without angina pectoris; I48.0 Paroxysmal atrial fibrillation

== ENCOUNTER → 2025-08-11 | Outpatient (CLI) | payer MEDICARE ==
[2025-08-11 14:56] LABS: PLATELET COUNT, AUTOMATED 305 10^3/uL (150-450)
[2025-08-11 15:30] LABS: ALT/SGPT 22.0 U/L (7.0-40); AST/SGOT 25.0 U/L (<34); CALCIUM LEVEL 9.6 MG/DL (8.3-10.6); CARBON DIOXIDE LEVEL 27.0 MMOL/L (20-31); CHLORIDE LEVEL 102.0 MMOL/L (98-107); CHOLESTEROL LEVEL 192.0 MG/DL (<200); CHOLESTEROL RISK RATIO 2.76 (<5); CREATININE FOR GFR 0.88 MG/DL (0.55-1.30); FREE T4 1.09 NG/DL (0.89-1.76); GLOMERULAR FILTRATION RATE 64.4 (>32); LDL CHOLESTEROL 102.5 MG/DL (<100); NON-HDL-C 122.5 MG/DL; POTASSIUM SERUM 4.2 MMOL/L (3.5-5.1); SODIUM LEVEL 140.0 MMOL/L (136-145); TRIGLYCERIDES LEVEL 100.0 MG/DL (<150)
[2025-08-11 15:31] LABS: VITAMIN B12 LEVEL 1001.0 PG/ML (211-911)
== END ==
LOC: M PLALAB 11:58
PROVIDERS: ATTEND Family Medicine
DX: I25.10 Atherosclerotic heart disease of native coronary artery without angina pectoris (principal); D64.9 Anemia, unspecified; I48.0 Paroxysmal atrial fibrillation